=== PATIENT | female | born 1955 | race Caucasian/White ===

== ENCOUNTER → 2017-11-13 17:50 | Outpatient (CLI) | payer OTHER, SELFPAY | PROVIDERS: PCP Family Medicine; Visit Provider Family Medicine | DX: R10.13 Epigastric pain (principal) | CPT/HCPCS: 93005 ==

== ENCOUNTER → 2017-11-20 07:49 | Outpatient (CLI) | payer OTHER, SELFPAY ==
--- NOTE | 2017-11-20 08:20 | CT_ITS ---
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 Now,LEFT LOWER QUAD PAIN . HISTORY of hernia repair Hysterectomy. Appendectomy. Hernia repair TECHNIQUE: Helical CT scanning performed the abdomen and pelvis with no oral nor IV contrast utilized. Sagittal coronal reconstructions on CT workstation. COMPARISON :April 27, 2012 CT abdomen pelvis FINDINGS Lung base:There are multiple small lung nodules towards the lung bases. Overall appears stable when compared to 2012 and 2010 exam., Can be followed.: Small 5 mm nodule periphery of the elbow axial image 6, measures just over 5 mm size,. It although more evident than 2012. Appears similar to the 2011 exam. Adequate stable and can be followed. Other other nodules noted below are stable since 2012: ... Stable near 10 mm soft tissue nodule at the periphery LLL . Unchanged since 2012 CT abdomen.. ... Also a stable 4.8 mm nodule at R mL axial image 3. ... Stable Right CP angle elongated 7.8 mm nodule stable since 2012. Additional scattered tiny nodules towards the right lower lobe measuring less than 4 mm also appear stable. Axial image 11, 12 Liver. Mild fatty changes No focal lesions identified on this noncontrast study. Elongated right lobe, over 24 cm length Spleen overall normal size. Stable. Pancreas unremarkable adrenals appear unchanged. The Plump more generous left adrenal is unchanged since prior studies. 2011 and 2010 GI tract. t no bowel dilatation or obstruction. Moderate stool throughout the colon. I would note the patient has a very redundant stool-filled cecum which extends across midline towards the left abdomen. Cecum residing at the left upper abdomen on coronal image 24, axial the 60. Left lower quadrant appears stable but specifically left inguinal region unchanged mild bulging of fat here but no significant recurrent hernia.. No adnexal mass. Uterus normal size. No free fluid. No free air. There may have been a a previous of ventral,/umbilical hernia region repair with vague mesh graft likely beneath this area suggested. Streak artifact throughout this study due to the patient's large girth, and flanks touching the edge the scanner yielding additional streak artifact.Probable small hiatal hernia noted Bones. Degenerative disc space narrowed L5/S1. Generous facet hypertrophy throughout the lower L-spine Left kidney. 3.6 cm round mass extending from the lower pole left kidney again noted and appears similar in size and character to the 2012 study. Probable debris-filled cyst. Intermediate Density 15 -16HU . Streak artifact for the patient's size may limit its density determination.. Measured higher density on previous [address] exam. It stability is reassuring but might Consider Ultrasound in attempt to further confirm this as benign cystic nature in this large patient. Small just over 4 mm mm nonobstructing calculus upper pole left kidney. Right kidney. Tiny 3 mm nonobstructive calculus lower pole. Minimal scarring lower pole. Previously noted cyst at anterior aspect upper kidney is not really apparent on today's noncontrast study. It certainly has not enlarged IMPRESSION: 1. A few tiny dots of air anterior aspect the bladder. Warrants correlation with urinalysis. If recent catheter placement this could be iatrogenic., However if not could question UTI or other etiology 2. Otherwise No acute findings abdomen or pelvis.. Large patient slightly limits resolution as does lack of IV contrast 3. Incidental note very long redundant right colon and cecum. Stool filled cecum cecum resides at the left mid/upper abdomen as seen on previous.. No change here. Large and s
--- NOTE | 2017-11-20 08:20 | CT_ITS ---
CT sinus wo con CLINICAL INDICATION: ORDERING PHYSICIAN: Yumiko Ventura MD PATIENT AGE: 62 years COMPARISON: None TECHNIQUE:Axial, sagittal, and coronal images are generated and reviewed without contrast FINDINGS: No significant mucosal thickening or sinus air-fluid level. The right frontal sinus is aplastic and left frontal sinus hypoplastic. Minimal mucosal thickening is present within the ethmoid sinuses. The ostiomeatal complexes are patent. There is moderate rightward nasal septal deviation. Unremarkable appearing orbits. Mild left TMJ arthropathy. No mastoid effusion. IMPRESSION: 1. Minimal mucosal thickening ethmoid sinuses otherwise negative study CT sinuses. 2. Minimal left TMJ arthropathy
== END ==
PROVIDERS: PCP Family Medicine; Visit Provider Family Medicine
DX: R51 Headache (principal); R10.32 Left lower quadrant pain
CPT/HCPCS: 70486; 74176

== ENCOUNTER → 2019-01-25 09:47 | Outpatient (CLI) | payer MEDICARE, BC, SELFPAY ==
--- NOTE | 2019-01-25 09:57 | MM_ITS ---
MM Dig screening mamm BI w/CAD CAD Screening COMPARISON: Previous mammogram from outside facility 2009 available for review at this time INDICATION: There is a history of breast cancer patient's sister diagnosed after menopause. There is been previous biopsy left breast for benign disease. TECHNIQUE: Standard CC and MLO images were obtained. R2 CAD reviewed. FINDINGS: The breasts are composed primarily of fat. There are scattered benign-appearing nodular densities in each breast. There are couple mole markers right breast. There are benign-appearing calcifications in each breast. There is no suspicious lesion and there are no suspicious microcalcifications. There are multiple small nodes in both axilla. IMPRESSION: Fatty type breast parenchyma, since are no previous studies for comparison and in view of the long interval since the previous mammograms recommend patient return for 6 month follow-up mammograms to sure stability of the benign-appearing nodular densities in each breast BI-RADS Category: 3 Probably Benign Finding Short Term Follow-up RECOMMENDED FOLLOW-UP: 6M - 6 MONTH FOLLOW-UP (A letter has been sent to the patient regarding results of the study.)
--- NOTE | 2019-01-25 09:58 | XR_ITS ---
XR DEXA axial skeleton HISTORY: ITS.REASON: OSTEOPENIA ORDERING PHYSICIAN: Yumiko Ventura MD PATIENT AGE: 63 years COMPARISON: None FINDINGS: The BMD measured at the Right femoral neck is 1.075 g/cm squared with a T score of 0.3. This is considered Normal according to the World Health Organization criteria. Fracture risk is Low. Treatment is advised. The L1 L4 density has a T score of 1.0 which is normal IMPRESSION: Normal bone density. Low fracture risk. Suggest follow-up exam January 2021
== END ==
PROVIDERS: PCP Family Medicine; Visit Provider Family Medicine
DX: Z12.31 Encounter for screening mammogram for malignant neoplasm of breast (principal); M81.0 Age-related osteoporosis without current pathological fracture
CPT/HCPCS: 77067; 77080

== ENCOUNTER → 2019-05-13 15:07 | Outpatient (CLI) | payer MEDICARE, BC, SELFPAY ==
--- NOTE | 2019-05-13 15:15 | XR_ITS ---
PROCEDURE: XR LUMBAR SPINE MIN 4V CLINICAL INDICATION: ACUTE RT SIDED LBP COMPARISON: No exams were available for comparison FINDINGS: There is mild anterolisthesis of L4 on L5. Mild multilevel degenerative disc disease is present at [id number] L2-L3 L3-L4 and L5-S1. No fracture or dislocation. There are mild facet arthritic changes at L4 and L5. Degenerative changes are also present involving the SI joints. IMPRESSION: Degenerative changes, no acute finding Dictated by: John Gordillo MD 05/13/2019 16:57 Signed by: <Electronically signed by John Gordillo MD in [place]> 05/13/2019 16:57
== END ==
PROVIDERS: PCP Family Medicine; Visit Provider Family Medicine
DX: M54.5 Low back pain (principal)
CPT/HCPCS: 72110

== ENCOUNTER 2019-05-22 16:17 | Inpatient (IN) ==
--- NOTE | 2019-05-22 16:54 | Progress Note ---
Internal Medicine - PN: Subj *Date: 05/22/19 *Time: 16:50 Interval history: Ms Farias was seen in the office of A by DR. Ventura for a FU visit for back pain. With her exam she was found to be in Atrial fibrillation with rapid Vent response at 140. She was thus admitted to [facility] step down for further evaluation and TX. See [facility] H&P/Dr. Ventura Assessment and Plan (1) Atrial fibrillation Current visit: Yes Status: Acute Category: Medical Code(s): I48.91 - Unspecified atrial fibrillation (2) HTN (hypertension) Current visit: Yes Status: Acute Category: Medical Code(s): I10 - Essential (primary) hypertension (3) Asthma Current visit: Yes Status: Chronic Category: Medical Code(s): J45.909 - Unspecified asthma, uncomplicated (4) Back pain Current visit: Yes Status: Chronic Category: Medical Code(s): M54.9 - Dorsalgia, unspecified - Assessment and plan all Dx Assessment and Plan for all problems:: admitted to step down; see orders
[2019-05-22 19:05] LABS: Basophils # 0.1 K/mm3 (0-0.2); Basophils % 0.8 % (0.1-2.0); Eosinophils # 0.2 K/mm3 (0.0-0.4); Eosinophils % 1.6 % (0.1-12.0); Hematocrit 46.9 % (37.0-47.0); Hemoglobin 15.1 g/dL (12.2-16.2); Lymphocytes # 3.6 K/mm3 (0.7-4.5); Lymphocytes % 31.2 % (10-50); Mean Corpuscular HGB Conc 32.3 g/dL (31.8-35.4); Monocytes # 0.6 K/mm3 (0.1-1.0); Monocytes % 5.6 % (1.7-9.3); Neutrophils % 60.8 % (37.0-80.0); Platelet Count 408 K/mm3 (142-424); Red Blood Count 5.27 M/mm3 (4.20-5.40); Red Cell Distribution Width 14.6 % (11.5-17.5); White Blood Count 11.5 K/mm3 (4.8-10.8)
[2019-05-22 19:16] LABS: Albumin Level 3.5 gm/dL (3.4-5.0); Albumin/Globulin Ratio 0.9 (1.1-1.8); Anion Gap 10.6 mEq/L (5-15); Bilirubin,Total 0.4 mg/dL (0.2-1.0); Calcium 9.6 mg/dL (8.5-10.1); Globulin 3.7 gm/dl (1.3-3.2); Total Protein,Serum 7.2 gm/dL (6.4-8.2)
[2019-05-22 19:22] LABS: INR 0.94 (0.9-1.1); Prothrombin Time 9.8 seconds (9.4-11.8)
[2019-05-22 19:24] LABS: Thyroid Stimulating Hormone 2.84 uIU/ml (0.358-3.740)
[2019-05-23 06:31] LABS: Basophils # 0.1 K/mm3 (0-0.2); Basophils % 0.6 % (0.1-2.0); Eosinophils # 0.2 K/mm3 (0.0-0.4); Eosinophils % 1.9 % (0.1-12.0); Hematocrit 44.5 % (37.0-47.0); Hemoglobin 14.2 g/dL (12.2-16.2); Lymphocytes # 3.7 K/mm3 (0.7-4.5); Lymphocytes % 33.8 % (10-50); Mean Corpuscular HGB Conc 31.9 g/dL (31.8-35.4); Mean Corpuscular Volume 88.6 fl (81-99); Mean Platelet Volume 6.9 fl (7.4-10.4); Monocytes # 0.8 K/mm3 (0.1-1.0); Monocytes % 7.1 % (1.7-9.3); Neutrophils # 6.2 K/mm3 (1.8-7.8); Neutrophils % 56.7 % (37.0-80.0); Platelet Count 381 K/mm3 (142-424); Red Blood Count 5.02 M/mm3 (4.20-5.40); Red Cell Distribution Width 14.7 % (11.5-17.5); White Blood Count 10.9 K/mm3 (4.8-10.8)
[2019-05-23 06:44] LABS: Chol/HDL Ratio 3.8 (1-3.5)
[2019-05-23 06:55] LABS: Anion Gap 12.3 mEq/L (5-15); Blood Urea Nitrogen 12 mg/dL (7-18); Calcium 9.3 mg/dL (8.5-10.1); Carbon Dioxide 28 mmol/L (21.0-32.0); Chloride 105 mmol/L (98-107); Creatine Kinase 28 U/L (26-192); Glucose 122 mg/dL (74-106); Sodium 142 mmol/L (136-145)
--- NOTE | 2019-05-23 07:39 | Pharmacy Consult Notes ---
[facility] VTE Monitoring - Patient Demographics Admission date: 05/22/19 Report Date: 05/23/19 Time: 07:39 Allergies/Adverse Reactions: Patient Allergies No Known Drug Allergies Allergy (Verified 05/22/19 19:12) Height: 1.68 m Weight: 140.67 kg Patient Problems: Current Active Problems Atrial fibrillation (Acute) HTN (hypertension) (Acute) Asthma (Chronic) Back pain (Chronic) - VTE Risk Labs: VTE Related Lab Results Hgb 14.2 g/dL (12.2-16.2) 05/23/19 06:05 Hct 44.5 % (37.0-47.0) 05/23/19 06:05 Plt Count 381 K/mm3 (142-424) 05/23/19 06:05 PT 9.8 seconds (9.4-11.8) 05/22/19 18:30 INR 0.94 (0.9-1.1) 05/22/19 18:30 BUN 12 mg/dL (7-18) 05/23/19 06:05 Creatinine 0.67 mg/dL (0.55-1.02) 05/23/19 06:05 Estimated Creat Clear 53 mL/min (50-200) 05/23/19 06:05 Was VTE Risk Assessment Performed: No VTE Score: 2 VTE Risk Level: Very Low Risk - Prophylaxis VTE Prophylaxis Ordered?: Yes Types of VTE Prophylaxis: Pharmacological Pharmacologic Type: Enoxaparin - VTE Diagnosis Confirmed Treatment or plan recommended: Continue Current Treatment
--- NOTE | 2019-05-23 08:08 | Progress Note ---
Internal Medicine - PN: Subj *Date: 05/23/19 *Time: 08:05 Interval history: Patient states she is feeling a little bit better this morning. She has felt her heart flutter a few times during the night and did not rest well. She did eat some breakfast this morning. She denies any chest pain and her heart rate is down in the 80s. Exam Vital signs and Labs for Last 24 Hours: Temp Pulse Resp BP Pulse Ox 98.0 F 90 19 138/90 93 L 05/23/19 04:00 05/23/19 07:00 05/23/19 07:00 05/23/19 07:00 05/23/19 07:00 Laboratory Results - last 24 hr 05/22/19 18:30: WBC 11.5 H, RBC 5.27, Hgb 15.1, Hct 46.9, MCV 89.0, MCH 28.7, MCHC 32.3, RDW 14.6, Plt Count 408, MPV 7.0 L, Neut % (Auto) 60.8, Lymph % (Auto) 31.2, [place] % (Auto) 5.6, Eos % (Auto) 1.6, Baso % (Auto) 0.8, Neut # (Auto) 7.0, Lymph # (Auto) 3.6, [place] # (Auto) 0.6, Eos # (Auto) 0.2, Baso # (Auto) 0.1 05/22/19 18:30: PT 9.8, INR 0.94 05/22/19 18:30: Sodium 143, Potassium 3.6, Chloride 105, Carbon Dioxide 31, Anion Gap 10.6, BUN 14, Creatinine 0.69, Estimated Creat Clear 53, Estimated GFR 85, Est GFR ( Amer) 103, Glucose 121 H, Calcium 9.6, Magnesium 1.9, Total Bilirubin 0.4, AST 10 L, ALT 18, Alkaline Phosphatase 111, Total Protein 7.2, Albumin 3.5, Globulin 3.7 H, Albumin/Globulin Ratio 0.9 L 05/22/19 18:30: Troponin I < 0.02, TSH 2.84 05/22/19 18:30: D-Dimer 105 05/23/19 06:05: Triglycerides 179, Cholesterol 165, LDL Cholesterol 86, VLDL Cholesterol 36, HDL Cholesterol 43, Cholesterol/HDL Ratio 3.8 H 05/23/19 06:05: WBC 10.9 H, RBC 5.02, Hgb 14.2, Hct 44.5, MCV 88.6, MCH 28.2, MCHC 31.9, RDW 14.7, Plt Count 381, MPV 6.9 L, Neut % (Auto) 56.7, Lymph % (Auto) 33.8, [place] % (Auto) 7.1, Eos % (Auto) 1.9, Baso % (Auto) 0.6, Neut # (Auto) 6.2, Lymph # (Auto) 3.7, [place] # (Auto) 0.8, Eos # (Auto) 0.2, Baso # (Auto) 0.1 05/23/19 06:05: Sodium 142, Potassium 3.3 L, Chloride 105, Carbon Dioxide 28, Anion Gap 12.3, BUN 12, Creatinine 0.67, Estimated Creat Clear 53, Estimated GFR 88, Est GFR ( Amer) 107, Glucose 122 H, Calcium 9.3, Total Creatine Kinase 28, CK-MB (CK-2) 0.8, CK-MB (CK-2) Rel Index 2.9, Troponin I < 0.02 I & O for Last 24 hours: Intake & Output 05/20/19 05/21/19 05/22/19 05/23/19 11:59 11:59 11:59 11:59 Intake Total 680 / 680 Output Total 1500 / 1500 Balance -820 / -820 Weight 310 lb 2 oz - Constitutional no acute distress - *Routine Respiratory Exam Present: CTA bilaterally - *Routine Cardiovascular Exam Present: irregularly irregular (HR's in the 80's) - *Routine Abdominal Exam Present: soft, normoactive bowel sounds. Absent: tenderness - *Routine Extremities Exam Present: edema (trace). Absent: cyanosis, clubbing - *Routine Skin Exam Present: warm. Absent: rash - *Routine Neurological Exam Present: alert, oriented X3 Assessment and Plan (1) Atrial fibrillation Current visit: Yes Status: Acute Category: Medical Code(s): I48.91 - Unspecified atrial fibrillation (2) HTN (hypertension) Current visit: Yes Status: Acute Category: Medical Code(s): I10 - Essential (primary) hypertension (3) Asthma Current visit: Yes Status: Chronic Category: Medical Code(s): J45.909 - Unspecified asthma, uncomplicated (4) Back pain Current visit: Yes Status: Chronic Category: Medical Code(s): M54.9 - Dorsalgia, unspecified (5) Hypokalemia Current visit: Yes Status: Acute Category: Medical Code(s): E87.6 - Hypokalemia - Assessment and plan all Dx Assessment and Plan for all problems:: Cardiology to see patient today. Her heart rate has decreased. Will add potassium supplementation today.
--- NOTE | 2019-05-23 10:38 | Consult Report ---
History of Present Illness Consult date: 05/23/19 Consult reason: atrial fibrillation, shortness of breath Chief complaint: Atrial fibrillation and racing of the heart Additional Medical History:: 1. Hypertension 2. Hyperlipidemia History of present illness: This is a 63-year-old white female who was admitted to the hospital from her primary care provider's office for being in atrial fibrillation with RVR. The patient has been being treated for acute low back pain. The patient was started on Celebrex and given a steroid injection. She went to Dr. Ventura's office for follow-up on this and she was found to have an irregularly irregular heartbeat and she was tachycardic. The patient was then sent to the hospital for admission for atrial fibrillation with RVR. When the patient got to the hospital she was found to be in new onset atrial fibrillation with a heart rate of 127. Her heart rate was around [address] Ventura's office. She denies any chest pain or pressure. She states that she had been feeling some racing of the heart but she thought this was maybe just a side effect of the new medications or her back pain. The patient states that she has some shortness of breath at times because she is overweight but no real significant shortness of breath. She does have edema in her lower extremities at times. She denies any fevers, chills, nausea, vomiting, diarrhea, PND or orthopnea. The patient was started on a diltiazem drip and she is now rate controlled. She states that she is intermittently feeling some racing of the heart here and there but this has improved. She still denying any chest pain or pressure. She reports having one episode of chest pain in the recent past. She states that this was a quick short sensation and resolved and has never occurred again. [facility] History I have reviewed the patient's past medical history: Yes Medical History: Reports:: Hyperlipidemia, Hypertension Denies:: Diabetes Mellitus Type 2 *Have you ever received a pneumonia vaccine?: Yes *Have you received a flu vaccine this season?: Yes Laterality Cases: Bilateral: Tonsillectomy Other Surgeries: Yes: Cholecystectomy, Hernia Repair, Skin Cancer Excision - *Social History Smoking Status: Never smoker Alcohol Intake: never *Occupational Status:: retired *Travel in the last 8 weeks: None Family Hx:: Cancer, Diabetes, Heart Attack, Hyperlipidemia, Hypertension, Thyroid Disorder Meds Home Medications Medication Instructions Recorded Confirmed Type Amlodipine Besylate 10 mg PO HS 05/22/19 05/23/19 History Aspirin [Adult Aspirin Regimen] 81 mg PO DAILY 05/22/19 05/22/19 History Atorvastatin Calcium [Atorvastatin 20 mg PO HS 05/22/19 05/22/19 History 20mg Tab] Celecoxib [Celebrex 200mg cap] 200 mg PO DAILY 05/22/19 05/22/19 History Cyclobenzaprine HCl [Flexeril 10mg 10 mg PO TIDP PRN 05/22/19 05/23/19 History tablet] Sennosides [Senna] 4 tab PO BID 05/22/19 05/22/19 History hydroCHLOROthiazide [HCTZ 25mg 25 mg PO DAILY 05/22/19 05/22/19 History tab] Allergies Allergy/AdvReac Type Severity Reaction Status Date / Time No Known Drug Allergies Allergy Verified 05/22/19 19:12 Review of Systems - Review of Systems Review of systems:: pertinent systems reviewed and negative unless documented below - Constitutional Reports lack of energy - *Cardiovascular Reports shortness of breath with activity, Reports fast heart rate - *Respiratory Reports shortness of breath with activity - *Musculoskeletal Reports back pain Exam Vital signs and Labs for Last 24 Hours: Temp Pulse Resp BP Pulse Ox 98.3 F 87 20 147/90 H 95 05/23/19 08:00 05/23/19 09:00 05/23/19 09:00 05/23/19 09:00 05/23/19 09:00 Laboratory Results - last 24 hr 05/22/19 18:30: WBC 11.5 H, RBC 5.27, Hgb 15.1, Hct 46.9, MCV 89.0, MCH 28.7, MCHC 32.3, RDW 14.6, Plt Count 408, MPV 7.0 L, Neut % (Auto) 60.8, Lymph % (Auto) 31.2, [place] % (Auto) 5.6, Eos % (Auto) 1.6, Baso % (Auto) 0.8, Neut # (Auto) 7.0, Lymph # (Auto) 3.6, [place] # (Auto) 0.6, Eos # (Auto) 0.2, Baso # (Auto) 0.1 05/22/19 18:30: PT 9.8, INR 0.94 05/22/19 18:30: Sodium 143, Potassium 3.6, Chloride 105, Carbon Dioxide 31, Anion Gap 10.6, BUN 14, Creatinine 0.69, Estimated Creat Clear 53, Estimated GFR 85, Est GFR ( Amer) 103, Glucose 121 H, Calcium 9.6, Magnesium 1.9, Total Bilirubin 0.4, AST 10 L, ALT 18, Alkaline Phosphatase 111, Total Protein 7.2, Albumin 3.5, Globulin 3.7 H, Albumin/Globulin Ratio 0.9 L 05/22/19 18:30: Troponin I < 0.02, TSH 2.84 05/22/19 18:30: D-Dimer 105 05/23/19 06:05: Triglycerides 179, Cholesterol 165, LDL Cholesterol 86, VLDL Cholesterol 36, HDL Cholesterol 43, Cholesterol/HDL Ratio 3.8 H 05/23/19 06:05: WBC 10.9 H, RBC 5.02, Hgb 14.2, Hct 44.5, MCV 88.6, MCH 28.2, MCHC 31.9, RDW 14.7, Plt Count 381, MPV 6.9 L, Neut % (Auto) 56.7, Lymph % (Auto) 33.8, [place] % (Auto) 7.1, Eos % (Auto) 1.9, Baso % (Auto) 0.6, Neut # (Auto) 6.2, Lymph # (Auto) 3.7, [place] # (Auto) 0.8, Eos # (Auto) 0.2, Baso # (Auto) 0.1 05/23/19 06:05: Sodium 142, Potassium 3.3 L, Chloride 105, Carbon Dioxide 28, Anion Gap 12.3, BUN 12, Creatinine 0.67, Estimated Creat Clear 53, Estimated GFR 88, Est GFR ( Amer) 107, Glucose 122 H, Calcium 9.3, Total Creatine Kinase 28, CK-MB (CK-2) 0.8, CK-MB (CK-2) Rel Index 2.9, Troponin I < 0.02 I & O for Last 24 hours: Intake & Output 05/20/19 05/21/19 05/22/19 05/23/19 23:59 23:59 23:59 23:59 Intake Total 240 / 240 440 / 440 Output Total 1500 / 1500 Balance 240 / -110 -1060 / -1060 Weight 305 lb 310 lb 2 oz Narrative: EKG #1 is atrial fibrillation with a rate of 127. There is old inferior TN pattern and old anterior lateral TN pattern. EKG #2 shows atrial fibrillation with a rate of 88. There is old inferior TN pattern and old anterior lateral TN pattern. - Constitutional no acute distress, morbidly obese - *Routine HEENT Exam Head: Present: normocephalic, atraumatic Eye: Present: EOMI, PERRL ENT: Present: mucous membranes moist - *Routine Neck Exam Present: supple, full ROM, normal carotid upstroke. Absent: JVD, carotid bruit, lymphadenopathy - *Routine Respiratory Exam Present: CTA bilaterally - *Routine Cardiovascular Exam Present: Normal S1, Normal S2, irregularly irregular. Absent: murmur - *Routine Abdominal Exam Present: soft, normoactive bowel sounds. Absent: tenderness, distended - *Routine Extremities Exam Present: full ROM, pulses intact, normal capillary refill. Absent: cyanosis, clubbing, edema - *Routine Skin Exam Present: intact, warm. Absent: erythema, rash - *Routine Neurological Exam Present: alert, oriented X3, CN II-XII intact. Absent: sensory deficit, motor deficit - Routine Psychiatric Exam Present: normal affect, normal thought process - Detailed Eye Exam Eyelids: Left normal inspection Assessment and Plan (1) Atrial fibrillation Current visit: Yes Status: Acute Category: Medical Code(s): I48.91 - Unspecified atrial fibrillation (2) HTN (hypertension) Current visit: Yes Status: Acute Category: Medical Code(s): I10 - Essential (primary) hypertension (3) Asthma Current visit: Yes Status: Chronic Category: Medical Code(s): J45.909 - Unspecified asthma, uncomplicated (4) Back pain Current visit: Yes Status: Chronic Category: Medical Code(s): M54.9 - Dorsalgia, unspecified (5) Hypokalemia Current visit: Yes Status: Acute Category: Medical Code(s): E87.6 - Hypokalemia (6) Morbid obesity Current visit: Yes Status: Chronic Category: Medical Code(s): E66.01 - Morbid (severe) obesity due to excess calories (7) Hyperlipidemia Current visit: Yes Status: Chronic Category: Medical Code(s): E78.5 - Hyperlipidemia, unspecified (8) Abnormal EKG Current visit: Yes Status: Acute Category: Medical Code(s): R94.31 - Abnormal electrocardiogram [ECG] [EKG] - Assessment and plan all Dx Assessment and Plan for all problems:: Plan: 1. The patient was admitted to the hospital with atrial fibrillation with RVR from Dr. Ventura's office. When the patient got to the emergency department she was found to be in atrial fibrillation with a rate of 127. The patient has been started on a diltiazem drip. She has tolerated this well and she is now rate controlled. Will convert her over to oral diltiazem CD 240 mg daily for rate control of her atrial fibrillation. 2. The patient will need to be on long-term anticoagulation secondary to her atrial fibrillation. We will get the patient started on Xarelto 20 mg p.o. daily with supper for anticoagulation. I have had a long discussion with the patient and her about oral anticoagulation. They have verbalized understanding. 3. The patient's blood pressure is elevated this morning. Her hydrochlorothiazide and her irbesartan have been restarted today for better blood pressure control. 4. Her LDL goal is less than 100. L is 86. 5. The patient is morbidly obese. Weight loss is highly encouraged. 6. We will get an echocardiogram to evaluate her LV function. 7. The patient has ruled out for an TN. She denies any chest pain or chest pressure. No plans for invasive cardiac testing while she is hospitalized. 8. The patient does have an abnormal EKG and her father had an TN at the age of 58. She would benefit from an ischemic evaluation on an outpatient basis. When she is discharged from the hospital and has followed up in our outpatient clinic, the patient will need to be set up for Lexiscan Myoview stress test. However this does not need to be completed while she is in the hospital. 9. As mentioned before we will convert her diltiazem over to oral medication today and start her on oral anticoagulation with Xarelto. We will stop her Lovenox. 10. Further recommendations were made pending the patient's response to treatment. Thank you for the opportunity to help participate in the care of this patient.
--- NOTE | 2019-05-23 14:59 | Electrocardiograph Report ---
APPROVED REPORT Exam: Resting ECG HR:88 bpm ECG Measurements Heart Rate 88 AXES QRSd 100 QRS -54 QT 378 T24 QTc 457 <Conclusion> Atrial fibrillation Left axis deviation Inferior infarct, age undetermined Late r wave progression Abnormal ECG Electronically signed by : Good Nagy, 05/23/2019 14:59:25
--- NOTE | 2019-05-23 18:12 | Electrocardiograph Report ---
APPROVED REPORT Exam: Resting ECG HR:127 bpm ECG Measurements Heart Rate 127 AXES QRSd 104 QRS -55 QT 294 T60 QTc 427 <Conclusion> Atrial fibrillation with rapid ventricular response Left axis deviation Minimal voltage criteria for LVH, may be normal variant LAHB Poor R Wave Progression Abnormal ECG Electronically signed by : Thomas Wharton, 05/23/2019 18:12:10
--- NOTE | 2019-05-24 09:05 | Progress Note ---
Internal Medicine - PN: Subj *Date: 05/24/19 *Time: 09:02 Interval history: She is stable for discharge to today though she remains in controlled atrial fibrillation. She will go home on diltiazem 240 mg sustained release, Xarelto 20 mg daily also. See med list for complete medications. She will be soon seen in follow-up by Dr. Ventura as well as cardiology. Exam Vital signs and Labs for Last 24 Hours: Temp Pulse Resp BP Pulse Ox 97.7 F 97 H 19 133/77 96 05/24/19 08:00 05/24/19 08:00 05/24/19 08:00 05/24/19 08:00 05/24/19 08:00 I & O for Last 24 hours: Intake & Output 05/21/19 05/22/19 05/23/19 05/24/19 11:59 11:59 11:59 11:59 Intake Total 680 / 680 720 / 720 Output Total 2300 / 2300 2600 / 2600 Balance -1620 / -1620 -1880 / -1880 Weight 310 lb 2 oz 308 lb 1 oz - *Routine Respiratory Exam Present: CTA bilaterally - *Routine Cardiovascular Exam Present: irregular rhythm (80) - *Routine Abdominal Exam Present: soft (Obese) - *Routine Extremities Exam Present: edema (Trace) - Routine Back/Spine/Pelvis Exam Back/Spine: Absent: paraspinal tenderness - *Routine Neurological Exam Present: alert, oriented X3 Assessment and Plan (1) Atrial fibrillation Current visit: Yes Status: Acute Category: Medical Code(s): I48.91 - Unspecified atrial fibrillation (2) HTN (hypertension) Current visit: Yes Status: Acute Category: Medical Code(s): I10 - Essential (primary) hypertension (3) Asthma Current visit: Yes Status: Chronic Category: Medical Code(s): J45.909 - Unspecified asthma, uncomplicated (4) Back pain Current visit: Yes Status: Chronic Category: Medical Code(s): M54.9 - Dorsalgia, unspecified (5) Hypokalemia Current visit: Yes Status: Acute Category: Medical Code(s): E87.6 - Hypokalemia (6) Morbid obesity Current visit: Yes Status: Chronic Category: Medical Code(s): E66.01 - Morbid (severe) obesity due to excess calories (7) Hyperlipidemia Current visit: Yes Status: Chronic Category: Medical Code(s): E78.5 - Hyperlipidemia, unspecified (8) Abnormal EKG Current visit: Yes Status: Acute Category: Medical Code(s): R94.31 - Abnormal electrocardiogram [ECG] [EKG] - Assessment and plan all Dx Assessment and Plan for all problems:: Discharge with follow-up in [facility] and with cardiology.
[2019-05-24 09:18] LABS: Basophils # 0.1 K/mm3 (0-0.2); Basophils % 0.8 % (0.1-2.0); Eosinophils # 0.2 K/mm3 (0.0-0.4); Eosinophils % 2.4 % (0.1-12.0); Hematocrit 45.6 % (37.0-47.0); Hemoglobin 14.4 g/dL (12.2-16.2); Lymphocytes # 2.1 K/mm3 (0.7-4.5); Lymphocytes % 29.2 % (10-50); Mean Corpuscular HGB Conc 31.6 g/dL (31.8-35.4); Mean Corpuscular Volume 90.3 fl (81-99); Mean Platelet Volume 6.8 fl (7.4-10.4); Monocytes # 0.5 K/mm3 (0.1-1.0); Monocytes % 6.4 % (1.7-9.3); Neutrophils # 4.4 K/mm3 (1.8-7.8); Neutrophils % 61.2 % (37.0-80.0); Platelet Count 370 K/mm3 (142-424); Red Blood Count 5.06 M/mm3 (4.20-5.40); Red Cell Distribution Width 14.6 % (11.5-17.5); White Blood Count 7.2 K/mm3 (4.8-10.8)
[2019-05-24 09:25] LABS: Anion Gap 8.4 mEq/L (5-15); Calcium 9.3 mg/dL (8.5-10.1)
--- NOTE | 2019-05-24 10:53 | Progress Note ---
Subjective Date: 05/24/19 Time: 08:00 Principal diagnosis: Atrial Fibrillation Interval history: 63-year-old female admitted to [facility] on 05/23/2019 for atrial fibrillation with RVR. Patient was started on Xarelto for anti- coagulation and Diltiazem for heart rate control. Preliminary echocardiogram performed reveals EF within normal limits and mild MR and TR. Awaiting on official echocardiogram reading. Upon assessment this a.m, patient resting in bed. Denies chest pain, tightness or pressure. Denies shortness of breath. Denies palpitations or dizziness. monitor tech reveals atrial fibrillation at a controlled rate. Heart rate noted in the 80s. Slight swelling noted of the lower extremities. Patient denies any bleeding issues or concerns due to taking the Xarelto. Lung sounds are clear. Vital signs are stable. Recommend patient to have further cardiac testing on an outpatient basis. Due to significant family history, would recommend Lexiscan Myoview to evaluate ischemia, on outpatient basis. Recommend patient to follow-up in 1 to 2 weeks. Discussed with patient the importance of long-term anticoagulation. Encouraged patient to notify cardiac clinic if she develops any bleeding concerns or issues. Encouraged weight loss. Thank you for letting cardiology participate in the care of this patient. Plan of care with discussed with Dr. Kline. Exam Vital signs and Labs for Last 24 Hours: Temp Pulse Resp BP Pulse Ox 97.7 F 89 19 133/77 96 05/24/19 08:00 05/24/19 08:57 05/24/19 08:57 05/24/19 08:00 05/24/19 08:57 Laboratory Results - last 24 hr 05/24/19 09:03: WBC 7.2 D, RBC 5.06, Hgb 14.4, Hct 45.6, MCV 90.3, MCH 28.6, MCHC 31.6 L, RDW 14.6, Plt Count 370, MPV 6.8 L, Neut % (Auto) 61.2, Lymph % (Auto) 29.2, [place] % (Auto) 6.4, Eos % (Auto) 2.4, Baso % (Auto) 0.8, Neut # (Auto) 4.4, Lymph # (Auto) 2.1, [place] # (Auto) 0.5, Eos # (Auto) 0.2, Baso # (Aut o) 0.1 05/24/19 09:03: Sodium 140, Potassium 3.4 L, Chloride 105, Carbon Dioxide 30, Anion Gap 8.4, BUN 14, Creatinine 0.76, Estimated Creat Clear 53, Estimated GFR 76, Est GFR ( Amer) 92, Glucose 125 H, Calcium 9.3 I & O for Last 24 hours: Intake & Output 05/21/19 05/22/19 05/23/19 05/24/19 23:59 23:59 23:59 23:59 Intake Total 240 / 240 440 / 440 720 / 720 Output Total 3200 / 3200 1700 / 1700 Balance 240 / -110 -2760 / -2760 -980 / -980 Weight 305 lb 310 lb 2 oz 308 lb 1 oz - Constitutional no acute distress, morbidly obese, cooperative - *Routine HEENT Exam Head: Present: normocephalic ENT: Present: mucous membranes moist - *Routine Neck Exam Present: supple, normal carotid upstroke. Absent: JVD, carotid bruit - Routine Chest/Breast/Axilla Exam Chest wall: Present: tenderness. Absent: mass, pacemaker - *Routine Respiratory Exam Present: CTA bilaterally. Absent: rales, respiratory distress, rhonchi, stridor, wheezes, crackles - *Routine Cardiovascular Exam Present: RRR, Normal S2, irregular rhythm. Absent: murmur, rubs, click, bradycardia, tachycardia, JVD - *Routine Abdominal Exam Present: soft, normoactive bowel sounds. Absent: tenderness, guarding, firm, bruit - *Routine Extremities Exam Present: edema, full ROM, pulses intact, normal capillary refill. Absent: cyanosis, clubbing, calf tenderness - *Routine Skin Exam Present: intact, dry, warm - *Routine Neurological Exam Present: alert, oriented X3, CN II-XII intact, moving all extremities, normal speech - Routine Psychiatric Exam Present: normal affect, normal thought process, cooperative. Absent: suicidal ideation, homicidal ideation Progress Note: A&P (1) Atrial fibrillation Status: Acute (2) HTN (hypertension) Status: Acute (3) Asthma Status: Chronic (4) Back pain Status: Chronic (5) Hypokalemia Status: Acute (6) Morbid obesity Status: Chronic (7) Hyperlipidemia Status: Chronic (8) Abnormal EKG Status: Acute Assessment and Plan for All Diagnoses:: Plan: 1. Continue current medications. 2. Recommend further cardiac testing as an outpatient basis. Lexiscan myoview due to significant family history and new onset of Atrial fibrillation. 3. Encourage weight loss. 4. LDL goal<55. 5. Discussed with patient the importance of Xarelto. Instructed patient to notify cardiac clinic of any bleeding concerns or issues. 6. Recommend patient to follow-up in cardiac clinic in 1 to 2 weeks.
--- NOTE | 2019-05-24 16:56 | Cardiology Report ---
APPROVED REPORT EXAM: Comprehensive 2D, Doppler, and color-flow Echocardiogram Television Maintenance Man: Rossana Nye RDCS Ht: 5 ft 6 in Wt: 310lbs BSA: 2.41 BP: 110/70 mmHg Indications: Dyspnea, Hypertension/HDD 2D Dimensions IVSd 1.10 cm F: 0.6-1.0LVEF (Visual) 43.00 % PWd 1.20 cm F: 0.6 - 1.0 LVDd 4.30 cm F: 3.9 - 5.3 LVDs 3.40 cm F: 2.2 - 3.5 LVOT 1.90 cm (M/F) 1.5-2.5 M-Mode Dimensions LA Diam 3.60 cm (1.9-4.0)Ao Diam 3.60 cm (2.0-3.7) AV Cusp 2.10 cm (1.5-2.6) LV Diastology LAT E' 10.10 (<10 cm/sec) Left Ventricle Left atrium is mildly enlarged, left ventricle is normal size, mild concentric left ventricular hypertrophy, visually estimated ejection fraction of 55% with no regional wall motion abnormality, endocardial surfaces are poorly visualized. Diastolic parameters are inconclusive Right Ventricle Right atrium and right ventricle mildly enlarged with normal contractility. Aortic Valve Aortic valve is minimally thickened and calcified there is no aortic stenosis aortic insufficiency. Mitral Valve Mitral valve is grossly normal, there is mild mitral regurgitation. Tricuspid Valve Tricuspid valve is grossly normal, there is mild tricuspid regurgitation. Tricuspid regurgitation jet velocity is inadequate for calculation of the right ventricular systolic pressure. Pulmonic Valve Pulmonic valve is poorly visualized. Great Vessels Aortic root is normal size. Pericardium No significant pericardial effusion noted. Conclusion 1. Technically difficult study because of the patient factors and poor acoustic windows. 2. Biatrial enlargement, normal left ventricular size, mild concentric left ventricular hypertrophy, visually estimated ejection fraction 55% with no regional wall motion abnormality. Diastolic parameters are inconclusive. 3. Mildly enlarged right ventricle with normal contractility. 4. Mild mitral and tricuspid regurgitation 5. No significant pericardial effusion noted. Electronically signed by : Terry Salazar, 05/24/2019 16:56:09
--- NOTE | 2019-05-25 08:45 | Discharge Summary ---
General - General Admission date:: 05/22/19 Discharge date: 05/24/19 HPI HPI: Ms Farias is a 63yo female who was seen in the office of A by Dr. Ventura for a FU visit for back pain. With her exam, she was found to be in Atrial fibrillation with rapid Vent response at 140 bmp. She was sent to the emergency room for a workup and was then she was then admitted to [facility] step down for further evaluation and [place]. Cardiology was consulted. Hospital Course Hospital Course: The patient had a chest x-ray showing cardiomegaly with mild tortuosity/ectasia of the thoracic aorta. When she got to the hospital, her heart rate was 127. She was started on a diltiazem drip and her rate was controlled. She still felt some racing of the heart intermittently, but it had improved. Cardiology saw the patient and switched her to oral Cardizem CD 240 mg daily for rate control. They felt she would need long-term anticoagulation, therefore they started her on Xarelto 20 mg daily. An echocardiogram was ordered. It showed an EF of 55% with biatrial enlargement and mild concentric left ventricular hypertrophy. Her heart rate remained controlled on oral Cardizem. She was stable to be discharged home on both Cardizem and Xarelto. Cardiology would like to see the patient in 1 to 2 weeks in their clinic and she will also follow-up in the office of [facility]. Objective Vital signs: Temp Pulse Resp BP Pulse Ox 97.7 F 89 19 133/77 96 05/24/19 08:00 05/24/19 08:57 05/24/19 08:57 05/24/19 08:00 05/24/19 08:57 Narrative: - Constitutional no acute distress - *Routine Respiratory Exam Present: CTA bilaterally - *Routine Cardiovascular Exam Present: irregularly irregular (HR's in the 80's) - *Routine Abdominal Exam Present: soft, normoactive bowel sounds. Absent: tenderness - *Routine Extremities Exam Present: edema (trace). Absent: cyanosis, clubbing - *Routine Skin Exam Present: warm. Absent: rash - *Routine Neurological Exam Present: alert, oriented X3 Results Labs on day of discharge: Labs from last 24 hours 05/24/19 05/24/19 09:03 09:03 WBC 7.2 D RBC 5.06 Hgb 14.4 Hct 45.6 MCV 90.3 MCH 28.6 MCHC 31.6 L RDW 14.6 Plt Count 370 MPV 6.8 L Neut % (Auto) 61.2 Lymph % (Auto) 29.2 [place] % (Auto) 6.4 Eos % (Auto) 2.4 Baso % (Auto) 0.8 Neut # (Auto) 4.4 Lymph # (Auto) 2.1 [place] # (Auto) 0.5 Eos # (Auto) 0.2 Baso # (Auto) 0.1 Sodium 140 Potassium 3.4 L Chloride 105 Carbon Dioxide 30 Anion Gap 8.4 BUN 14 Creatinine 0.76 Estimated Creat Clear 53 Estimated GFR 76 Est GFR ( Amer) 92 Glucose 125 H Calcium 9.3 DS: Diagnosis - Discharge Diagnosis (1) Atrial fibrillation Status: Acute (2) HTN (hypertension) Status: Acute (3) Asthma Status: Chronic (4) Back pain Status: Chronic (5) Hypokalemia Status: Acute (6) Morbid obesity Status: Chronic (7) Hyperlipidemia Status: Chronic (8) Abnormal EKG Status: Acute Discharge Plan - Patient Discharge Instructions ACTIVITY: Continue current activity DIET: low fat, low cholesterol Patient Instructions: Atrial Fibrillation, Heart-Healthy Diet, DI for Low Back Pain, DI for Atrial Fibrillation, DI for Weight Loss - Follow up Plan Follow up with: Yumiko Ventura MD [Primary Care Provider] - 05/29/19 2:45 pm () Logan Kline MD [Staff Physician] - 05/31/19 9:30 am Unknown provider or service follow up:: 05/24/19 09:02 She needs an appointment with cardiology for follow-up. Disposition: Home, Self-Jail Medications: Home Medications Medication Instructions Recorded Confirmed Type Aspirin [Adult Aspirin Regimen] 81 mg PO DAILY 05/22/19 05/22/19 History Atorvastatin Calcium [Atorvastatin 20 mg PO HS 05/22/19 05/22/19 History 20mg Tab] Cyclobenzaprine HCl [Flexeril 10mg 10 mg PO TIDP PRN 05/22/19 05/23/19 History tablet] Sennosides [Senna] 4 tab PO BID 05/22/19 05/22/19 History hydroCHLOROthiazide [HCTZ 25mg 25 mg PO DAILY 05/22/19 05/22/19 History tab] Irbesartan [Avapro 300mg 300 mg PO DAILY #30 tab 05/24/19 Rx tablet] Rivaroxaban [Xarelto 20mg Tablet] 20 mg PO DAILY #30 tab 05/24/19 Rx dilTIAZem HCl [Cardizem ER 240mg 240 mg PO DAILY #30 cap.er.24h 05/24/19 Rx Capsule] Prescriptions/Medication Reconciliation: New Irbesartan [Avapro 300mg tablet] 300 mg PO DAILY #30 tab dilTIAZem HCl [Cardizem ER 240mg Capsule] 240 mg PO DAILY #30 cap.er.24h Rivaroxaban [Xarelto 20mg Tablet] 20 mg PO DAILY #30 tab Continued Aspirin [Adult Aspirin Regimen] 81 mg PO DAILY Sennosides [Senna] 4 tab PO BID Atorvastatin Calcium [Atorvastatin 20mg Tab] 20 mg PO HS hydroCHLOROthiazide [HCTZ 25mg tab] 25 mg PO DAILY Cyclobenzaprine HCl [Flexeril 10mg tablet] 10 mg PO TIDP PRN PRN Reason: muscle spasms Discontinued Amlodipine Besylate 10 mg PO HS Celecoxib [Celebrex 200mg cap] 200 mg PO DAILY - Problem Reconciliation Problems Reviewed?: Yes
== END 2019-05-24 10:00 | disposition home or self-care (01) | DRG 309 ==
LOC: 2ND 16:28
PROVIDERS: ADMIT Family Medicine; ATTEND Family Medicine

== ENCOUNTER → 2019-05-29 16:04 | Outpatient (CLI) | payer MEDICARE, BC, SELFPAY ==
--- NOTE | 2019-05-29 16:16 | ECG_ITS ---
APPROVED REPORT Exam: Resting ECG HR:81 bpm ECG Measurements Heart Rate 81 AXES OK 204 P 30 QRSd 96 QRS -54 QT 378 T 44 QTc 439 <Conclusion> Normal sinus rhythm,First Degree AV Block Left axis deviation,LAHB versus Old Inferior MS Minimal voltage criteria for LVH, Anterolateral infarct,Old-versus changes due to LAHB Abnormal ECG Electronically signed by : Thomas Wharton, 05/29/2019 17:45:03
== END ==
PROVIDERS: PCP Family Medicine; Visit Provider Family Medicine
DX: Z86.79 Personal history of other diseases of the circulatory system (principal)
CPT/HCPCS: 93005

== ENCOUNTER → 2019-06-07 07:13 | Outpatient (CLI) | payer MEDICARE, BC, SELFPAY ==
--- NOTE | 2019-06-07 07:15 | NM_ITS ---
APPROVED REPORT Exam: Nuclear Stress Test Indication: SOB, FATIQUE, HTN, HYPERLIPIDEMIA, FM HX, OBESITY, Patient Location: Outpatient Stress Tech: Dominique Cruz PA Tech:Michelle Villalta SHIKen RT(R)(N) Ht: 5 ft 6 in Wt: 305 lbs BSA: 2.39 m2 HR: 79 bpm BP: 163/85 mmHg BMI: 49.2 History: SOB, FATIQUE, HTN, HYPERLIPIDEMIA, FM HX, OBE Procedure: Patient received a 0.4 mg of intravenous Lexiscan, resting heart rate 79 bpm, resting blood pressure 163/85 mmHg, with Lexiscan maximum heart rate achived was 119 bpm which is 85 % of the maximum predicted heart rate and blood pressure was 148/88 mmHg. With Lexiscan, patient denied any complaint of chest pain. Electrocardiogram Resting electro cardiogram showed sinus rhythm, with Lexiscan there is less than 1.[address] segment depression noted from the baseline EKG. Cardiac Stress and Resting SPECT Images: Cardiac Stress and Resting SPECT images were obtained using technetium 99m Myoview 32.6 mCi stress and 10.17 mCi at rest. Gated SPECT with analysis of segmental wall motion and calculation of the ejection fraction also done. Cardiac stress and resting SPECT images show mild fixed defect in the anterior wall with normal contractility and the gated SPECT is likely secondary to soft tissue attenuation, no reversible ischemia seen. Computer derived ejection fraction is over 65% with no regional wall motion abnormality, right ventricle is normal size and contractility. Conclusion: 1. The EKG portion of the Lexiscan Myoview is nondiagnostic. 2. No scintigraphic evidence of reversible ischemia seen, computer derived ejection fraction over 65% with no regional wall motion abnormality, right ventricle is normal size and contractility. 3. Normal Lexiscan Myoview study. Electronically signed by : Terry Salazar, 06/07/2019 13:40:01
--- NOTE | 2019-06-07 09:19 | CA_ITS ---
APPROVED REPORT Exam: Pharmacologic Technologist: dima concepcion, Ht: 5 ft 6 in Wt: 305 lbs BSA: 2.39 m2 HR: 79 bpm BP: 163/85 mmHg Rhythm: NSR Indications: SOB, Fatigue Medical History Medications: Asa,,,,, Atorvastatin,,,,, HCTZ,,,,, XaRELTO,,,,, CardIZEM,,,,, AVapro,,,,, SeNnosides,,,,, Allergies: No known drug allergies Cardiac Risk Factors: HTN, Hyperlipidemia, FHX of CAD Stress Test Details Test: LEXISCAN HR Resting HR: 82 bpm Max Heart Rate (APMHR): 155 bpm Max HR Achieved: 124 bpm Target HR (85% APMHR): 131 bpm % of APMHR: 80 Recovery HR: 100 bpm BP Resting BP: 163/85 mmHg Max BP: 163/85 mmHg Recovery BP: 135.0/69.0 mmHg ECG Resting ECG: NSR, LAD, can't rule out old anterior [place]. Clinical Stress Symptoms: Headache, Abdominal discomfort Exercise duration: 04:03 min Highest Stage Achieved: Exercise capacity: 1.0 METs Stress ECG Conclusion Symptoms: Nausea, Headache ,No CP. Arrhythmias/Ectopy: None ST-T Changes: No significant changes. - Unremarkable Lexiscan stress. - Myoview images reported separately. Electronically signed by : Terry Salazar, 06/07/2019 13:52:51
== END ==
PROVIDERS: PCP Family Medicine; Visit Provider Internal Medicine Cardiovascular Disease
DX: I48.91 Unspecified atrial fibrillation (principal); R94.31 Abnormal electrocardiogram [ECG] [EKG]; I10 Essential (primary) hypertension
CPT/HCPCS: 78452; 93017; A9502; J2785

== ENCOUNTER → 2019-06-07 10:20 | Outpatient (CLI) | payer SELFPAY ==
--- NOTE | 2019-06-07 10:44 | CT_ITS ---
PROCEDURE: CT HEART W CALCIUM SCORE CLINICAL HISTORY: SCREENING COMPARISON: COUNT INCLUDES THE [facility] CT abdomen pelvis wo con from 11/20/2017 TECHNIQUE: Axial images obtained with sagittal and coronal reformats. All CT scans at the facility use one or more dose reduction, viz: automated exposure control, ma/kV adjustment per patient size (including targeted exams where dose is matched to indication, i.e. head), or iterative reconstruction technique. FINDINGS: Coronary artery calcium score is 360 indicating moderate plaque burden with high cardiovascular disease risk. Incidental note made of small hiatal hernia. There is a 5 mm nodule in the right lower lobe and a 7 mm nodule in the inferior aspect of the right upper lobe. These are noncalcified. There is a 11 mm nodule in the left lower lobe and an additional 6 mm nodule in the left lower lobe medially. Parenchymal scarring is present in the lingula. There is a 5 mm nodule in the left perihilar region within the left upper lobe. IMPRESSION: 1. Moderate plaque burden with high cardiovascular disease risk. 2. Multiple noncalcified pulmonary nodules in the lower lung zones as detailed above measuring up to 11 mm. Recommend dedicated chest CT without and with contrast for further evaluation. Dictated by: John Gordillo MD 06/08/2019 09:16 Electronically signed by John Gordillo MD in [facility] 06/08/2019 09:16
== END ==
PROVIDERS: PCP Family Medicine; Visit Provider Internal Medicine Cardiovascular Disease
DX: R06.02 Shortness of breath (principal); I48.91 Unspecified atrial fibrillation; I10 Essential (primary) hypertension; R94.31 Abnormal electrocardiogram [ECG] [EKG]; R53.83 Other fatigue
CPT/HCPCS: 75571

== ENCOUNTER → 2019-06-13 14:31 | Outpatient (CLI) | payer MEDICARE, BC, SELFPAY | PROVIDERS: PCP Family Medicine; Visit Provider Internal Medicine Cardiovascular Disease | DX: G47.33 Obstructive sleep apnea (adult) (pediatric) (principal); R06.83 Snoring; R06.02 Shortness of breath; I10 Essential (primary) hypertension | CPT/HCPCS: G0399 ==

== ENCOUNTER → 2020-05-08 08:07 | Outpatient (CLI) | payer MEDICARE, BC, SELFPAY ==
--- NOTE | 2020-05-08 08:29 | MM_ITS ---
PROCEDURE: MM DIG SCREENING MAMM BI W/CAD Digital Breast Tomosynthesis Included CLINICAL INDICATION: SCREENING There is a history of breast cancer patient's sister diagnosed in her 50s. There has been a previous biopsy left breast for benign disease. COMPARISON: MG DIG MAMM-SCREEN MAMTA from 01/25/2019 TECHNIQUE: Standard CC and MLO images and 3D Tomosynthesis was obtained. R2 CAD reviewed. FINDINGS: The breasts are composed primarily of fat with minimal scattered fibroglandular densities in each breast. There are couple of benign-appearing microcalcifications in each breast. There are stable small benign-appearing nodular densities right breast. There is stable slightly asymmetrically increased glandular elements subareolar region left breast. IMPRESSION: Stable fatty type breast parenchyma with no suspicious lesions seen BI-RAD Category: 2 Benign Finding(s) FOLLOW-UP: 1YR 1 Year Follow-up (A letter has been sent to the patient regarding results of the study.) Dictated by: Dr. Omar Gleason MD 05/08/2020 12:40 Dr. Omar Gleason MD in [place] 05/08/2020 12:40
== END ==
PROVIDERS: PCP Family Medicine; Visit Provider Family Medicine
DX: Z12.31 Encounter for screening mammogram for malignant neoplasm of breast (principal); N60.19 Diffuse cystic mastopathy of unspecified breast
CPT/HCPCS: 77063; 77067

== ENCOUNTER → 2020-06-13 09:35 | Outpatient (CLI) | payer MEDICARE, BC, SELFPAY ==
[2020-06-13 11:36] LABS: Coronavirus 19 IgG Antibody Negative (Negative); Coronavirus 19 IgM Antibody Negative (Negative)
== END ==
PROVIDERS: Visit Provider Internal Medicine Gastroenterology
DX: Z01.89 Encounter for other specified special examinations (principal); Z12.11 Encounter for screening for malignant neoplasm of colon
CPT/HCPCS: 36415; 86328

== ENCOUNTER 2020-06-15 11:57 | Day surgery (SDC) | payer MEDICARE, BC, SELFPAY ==
[2020-06-09 13:55] VITALS: BMI 55.4
[2020-06-15 12:49] VITALS: BP 190/90; PULSE 87; RESP 18; TEMP 36.3; O2SAT 97
--- NOTE | 2020-06-15 13:16 | P.PN_ITS ---
[facility] Anesthesia Checklist - Patient Identification Patient Identification: Arm Band - Structural Data Admitted From: Home Planned Operative Procedure/s: colonoscopy Consent for Planned Operative Procedure(s) Verified: Yes Verified Documents: Surgical Consent, History and Physical - NPO Status Verified Time NPO: 00:00 - Additional verifications Anesthesia Reactions: No - Airway Assessment C-Spine Mobility Assessed: Yes (mp3) TMJ Mobility Assessed: Yes Dentition: Good Dentition - Neurological Assessment Level of Consciousness: Awake, Alert - Anesthesia Plan Anesthesia Risk discussed: Yes Anesthesia Plan: Verified ASA Class: III Anesthesia Type: MAC [facility] History I have reviewed the patient's past medical history: Yes Medical History: Reports:: Anxiety, Asthma, Atrial Fibrillation, Gastroesophageal Reflux Disease(GERD), Hyperlipidemia, Hypertension Denies:: Cancer, Diabetes Mellitus Type 1, Diabetes Mellitus Type 2, Internal Pacemaker, MRSA, Seizures *Have you ever received a pneumonia vaccine?: No *Have you received a flu vaccine this season?: No Anesthesia experience/problems:: nac Laterality Cases: Bilateral: Tonsillectomy Other Surgeries: Yes: Cholecystectomy, Hernia Repair, Skin Cancer Excision. No: Pacemaker Amputation: No Fractures: No - *Social History Last grade of school completed: High school graduate Smoking Status: Never smoker Alcohol Intake: current Alcohol Intake Frequency:: holidays/special occasions only Substance Use Type: denies use *Occupational Status:: disabled *Travel in the last 8 weeks: None Family Hx:: Cancer, Diabetes, Heart Attack, Hyperlipidemia, Hypertension, Thyroid Disorder, Coronary Artery Disease
[2020-06-15 14:09] VITALS: O2SAT 93
--- NOTE | 2020-06-15 14:44 | HMH.PROC ---
[facility] Procedure Note Procedure Note:: Colonoscopy Procedure Report: Colonoscopy with cold snare polypectomy Endoscopist: Kimani Sutton II, MD Referring physician: Alan Ventura MD Date of Procedure: June 15, 2020 Equipment: Olympus 180 variable stiffness pediatric colonoscope Sedation: MAC sedation Indication: Mrs. Farias is a 64-year-old female who is here for diagnostic colonoscopy secondary to a positive Cologuard. She is on Xarelto and aspirin. She recently had lab work showing hemoglobin 14.1 and hematocrit 43.3. The patient does get some generalized abdominal discomfort, gassiness and bloating. She has had left upper quadrant discomfort. She did see some bright red blood 1 to 2 months ago. She does report regular bowel movements but does take senna or a stool softener daily. She reports no hematochezia or melena. She reports no weight loss or family history of colon cancer. This is her first colonoscopy for diagnostic purposes. Procedure: Prior to the procedure, a history and physical exam was performed, and patient's medications and allergies were reviewed. The risks, benefits and alternatives of the sedation and procedure were discussed with the patient. All questions were answered and informed consent was obtained. The patient was brought to the procedure room. Patient identification and proposed procedure were verified by the physician and the nurse. The patient was placed in a left lateral decubitus position and the scope was passed under direct vision. Throughout the procedure, the patient's blood pressure, pulse, and oxygen saturations were monitored continuously. The colonoscopy was accomplished without difficulty. The patient tolerated the procedure well. Findings: On digital rectal examination there was normal rectal tone. There were no external hemorrhoids. The colonoscope was introduced through the anal canal to the rectum and advanced to the cecum. Most of the cecum was visualized but full intubation of the cecum was difficult due to size and redundant colon. The ileocecal valve was easily identified with most of the cecum. There was moderate melanosis coli noted throughout the colon. Upon withdrawal, there were a total of 9 colon polyps (ascending x3 (3, 4 and 5 mm), transverse x1 (5 mm), descending x1 (4 mm) and sigmoid x4 (3, 3, 4 and 6 mm)). All of these polyps were removed via cold snare polypectomy. Upon retroflexion within the rectum there were grade 2 internal hemorrhoids.The preparation was excellent throughout with Edge[place] Preparation Score of 9. The cecal time was 17 minutes. Impression: 1. Colonic polyps x9 2. Mild melanosis coli with moderate colonic redundancy 3. Grade 2 internal hemorrhoids Plan: I will follow up the polyp pathology and recommend repeat colonoscopy again in 3 years based upon the polyp histology. The patient does not have anemia and I do not feel that she has any significant chronic GI blood loss. I would encourage a fiber bowel regimen (MiraLAX plus bulk fiber supplement) on a long-term daily maintenance basis.
[2020-06-15 14:45] VITALS: BP 98/72; PULSE 77; RESP 12; TEMP 36.3; O2SAT 92
[2020-06-15 14:55] VITALS: BP 122/69; PULSE 71; RESP 16; O2SAT 94
[2020-06-15 15:05] VITALS: BP 128/79; PULSE 70; RESP 16; O2SAT 95
[2020-06-15 15:15] VITALS: BP 146/76; PULSE 66; RESP 16; TEMP 36.3; O2SAT 96
== END 2020-06-15 15:22 | disposition home or self-care (01) ==
LOC: OUTP 11:59
PROVIDERS: PCP Family Medicine; Visit Provider Internal Medicine Gastroenterology
PROC: 0DJD8ZZ Inspection of Lower Intestinal Tract, Via Natural or Artificial Opening Endoscopic (ICD-10-PCS; CPT 45378; principal; 2020-06-15 13:00)
DX: Q43.8 Other specified congenital malformations of intestine; K63.5 Polyp of colon; K63.89 Other specified diseases of intestine; K64.1 Second degree hemorrhoids; Z79.01 Long term (current) use of anticoagulants; I10 Essential (primary) hypertension; E78.5 Hyperlipidemia, unspecified; K21.9 Gastro-esophageal reflux disease without esophagitis; I48.91 Unspecified atrial fibrillation; F41.9 Anxiety disorder, unspecified; J45.909 Unspecified asthma, uncomplicated; Z90.49 Acquired absence of other specified parts of digestive tract
CPT/HCPCS: 45385; 88305

== ENCOUNTER 2020-12-16 17:40 | Emergency (ER) | payer MEDICARE, BC, SELFPAY ==
[2020-12-16 17:42] VITALS: BP 141/98; PULSE 82; RESP 16; TEMP 37; O2SAT 98; BMI 54.9
--- NOTE | 2020-12-16 18:01 | XR_ITS ---
PROCEDURE: XR KNEE LT 3V CLINICAL INDICATION: FALL COMPARISON: CR XR KNEE RT 3V from 12/16/2020 FINDINGS: No acute fractures or dislocations. Tricompartmental degenerative changes with joint space loss, prominence of the intercondylar tubercles and subchondral sclerosis noted. Mild osteopenia is noted. No suprapatellar joint effusion. Degenerative changes of the proximal tibia fibular joint. Minor cortical irregularity of the proximal fibular is noted. IMPRESSION: Minor cortical irregularity of the proximal 1/3 of the fibula is noted, incompletely evaluated on the current study. If clinically indicated, nuclear medicine bone scan should be considered for further evaluation. No acute fractures or dislocations. Dictated by: Cindy Huntley 12/17/2020 09:41 Cindy Huntley in [facility] 12/17/2020 09:41
--- NOTE | 2020-12-16 18:01 | XR_ITS ---
PROCEDURE: XR KNEE RT 3V CLINICAL INDICATION: FALL COMPARISON: No exams were available for comparison FINDINGS: No fracture or dislocation. No lytic or blastic change. There is normal mineralization. Tricompartmental degenerative changes with osteophyte formation, subchondral cystic changes and sclerosis noted primary crit prominence of the intercondylar tubercles. There is focal ossified density noted projecting over the posterior joint space, may represent fabella. Loose body should be considered. Other findings:None. IMPRESSION: No acute fractures or dislocations. Degenerative changes as described above. Dictated by: Cindy Huntley 12/17/2020 09:44 Cindy Huntley in [facility] 12/17/2020 09:44
--- NOTE | 2020-12-16 18:01 | XR_ITS ---
PROCEDURE: XR TIBIA FIBULA RT 2V CLINICAL INDICATION: FALL COMPARISON: No exams were available for comparison FINDINGS: No fracture or dislocation. No lytic or blastic change. There is normal mineralization. The visualized ankle joint is unremarkable. No significant soft tissue abnormality. IMPRESSION: No acute findings. Dictated by: Cindy Huntley 12/17/2020 09:42 Cindy Huntley in [facility] 12/17/2020 09:42
--- NOTE | 2020-12-16 18:19 | HMH.EDUTC ---
[facility] [place] Clinical Impression: Right leg pain Fall Qualifiers: Encounter type: initial encounter Qualified Code(s): W19.XXXA - Unspecified fall, initial encounter Bilateral knee pain Qualifiers: Chronicity: acute Qualified Code(s): M25.561 - Pain in right knee Disposition: Home, Self-Care Condition on Discharge: Good Instructions: Contusion, DI for Knee Pain Additional Instructions: Rest the extremity, apply ice for 15 minutes as tolerated three or four times per day, Wear the nikole wrap for compression, Elevate your legs as tolerated while you are resting. Follow up with Dr. Chand (orthopedics). Sometimes there can be fractures that don't show up well on the first set of x-rays. So, you should follow up if you continue to have symptoms. I put in a referral but you need to call his office and schedule an appointment. Follow up with your regular doctor. Use your walker for ambulation assistance. GO TO THE ER FOR ANY WORSENING SYMPTOMS Referrals: Yumiko Ventura MD [Primary Care Provider] - Shala Chand MD [Physician] - Time of Disposition: 19:26 Medical Decision Making - Medical Records Medical records reviewed: No: I reviewed the patient's medical records. - Neeraj Inquiry Pt receiving controlled substance: No Vital Signs: 12/16/20 17:42 12/16/20 19:28 Temperature 98.6 F 98.2 F Temperature Source Oral Oral Pulse Rate 80 Pulse Rate [Right] 82 Respiratory Rate 16 16 Blood Pressure 140/87 Blood Pressure [Right Arm] 141/98 H Blood Pressure Mean [Right Arm] 112 Blood Pressure Source Automatic Cuff Blood Pressure Source [Right Arm] Automatic Cuff Blood Pressure Position Sitting Blood Pressure Position [Right Arm] Sitting 02 Sat by Pulse Oximetry 98 Oxygen Delivery Method Room Air Room Air [facility] [place] - General Stated complaint: AO 12/16 @1000 injured legs Time Seen by Provider: 12/16/20 18:37 - History of Present Illness Provider Complaint: She states that she fell while walking up some steps to her house. She has bilateral knee pain and right lower leg pain. - Related Data Home Medications Medication Instructions Recorded Confirmed Aspirin [Adult Aspirin Regimen] 81 mg PO DAILY 05/22/19 06/09/20 Atorvastatin Calcium [Lipitor 20mg 20 mg PO HS 05/22/19 06/09/20 Tab] Sennosides [Senna] 4 tab PO BID 05/22/19 06/09/20 fluticasone furoate 200 1 inh INHALATION DAILY 06/05/20 06/09/20 mcg-vilanterol 25 mcg/dose inhalation powder fluticasone propionate 50 2 spray INTRANASAL DAILY ml 06/05/20 06/09/20 mcg/actuation nasal spray,suspension furosemide 40 mg tablet 40 mg PO DAILY tab 06/05/20 06/09/20 Irbesartan [Avapro 300mg 300 mg PO DAILY 06/09/20 06/09/20 tablet] Rivaroxaban [Xarelto 20mg Tablet] 20 mg PO DAILY 06/09/20 06/09/20 dilTIAZem HCL [Cardizem ER 240mg 240 mg PO DAILY 06/09/20 06/15/20 Capsule] Allergies Allergy/AdvReac Type Severity Reaction Status Date / Time No Known Drug Allergies Allergy Verified 06/09/20 13:51 [facility] History - Hepatitis A Screen Attestation statement:: This patient has been screened for Hepatitis A risk factors. I have reviewed the patient's past medical history: Yes Medical History: Reports:: Anxiety, Asthma, Atrial Fibrillation, Gastroesophageal Reflux Disease(GERD), Hyperlipidemia, Hypertension Denies:: Cancer, Diabetes Mellitus Type 1, Diabetes Mellitus Type 2, Internal Pacemaker, MRSA, Seizures Comment: LYLE Laterality Cases: Bilateral: Tonsillectomy Other Surgeries: Yes: Cholecystectomy, Hernia Repair, Skin Cancer Excision. No: Pacemaker Amputation: No Fractures: No - Social History Smoking Status: Never smoker Alcohol Intake: current Alcohol Intake Frequency:: holidays/special occasions only Substance Use Type: denies use Occupational Status: disabled - Psychiatric History Pschychiatric History:: Reports:: Anxiety Family Hx:: Cancer, Diabetes, Heart Attack, Hype
[2020-12-16 19:28] VITALS: BP 140/87; PULSE 80; RESP 16; TEMP 36.8; O2SAT 98
== END 2020-12-16 19:31 | disposition home or self-care (01) ==
PROVIDERS: Emergency Provider Nurse Practitioner Family; PCP Family Medicine
DX: M25.561 Pain in right knee (principal); M79.661 Pain in right lower leg; W10.9XXA Fall (on) (from) unspecified stairs and steps, initial encounter; Y92.019 Unspecified place in single-family (private) house as the place of occurrence of the external cause; I48.91 Unspecified atrial fibrillation; K21.9 Gastro-esophageal reflux disease without esophagitis; I10 Essential (primary) hypertension; E78.5 Hyperlipidemia, unspecified; F41.9 Anxiety disorder, unspecified; Z79.899 Other long term (current) drug therapy
CPT/HCPCS: G0463; 73562; 73590; 99202

== ENCOUNTER 2021-04-08 14:00 | Outpatient (RCR) | payer MEDICARE, BC, SELFPAY ==
--- NOTE | 2021-02-01 14:39 | HMH.PTOPWND ---
Rehab Outpt Wound Evaluation Rehab OP Wound Evaluation Start: 02/01/21 13:53 Freq: Status: Active Protocol: Document 02/01/21 14:33 PORTIA (Rec: 02/01/21 14:39 PHORNE [id number]) Electronically Signed By Nikos Goncalves, PT 02/01/21 14:33 Subjective/History History History Pt is 65 yowf who presents with c/o B LE edema x ` 2 mos S/P ground level fall at home. She reports she fell forward and had multipl hematoma as a result. She had increased pain and has been using a RW for ambulation since this fall. She c/o increased tendenress to palpation throughout the lower legs and several hard spots where some of her bruises were. SHe has hx of HTN and Morbid Obesity. Subjective Subjective Pain currently 2/10 , but has been worse since her fall. Tenderness to palpation 2/4 B lower legs. She presents with 1+ pitting edema and pockets of fibrotic edema in some area . Lymphedema Eval Classification of Lymphedema Secondary Lymphedema Yes Stemmer's sign Stemmer's Sign yes Stage of Lymphedema Lymphedema stages Stage II (Pitting edema, increased fibrosis w/ decreased pitting) Skin Changes Dry Skin Yes Skin Folds Yes Hyperkeratosis Yes: mild Redness Yes Wounds Yes Brittle Uneven Nails Yes Discoloration of Skin Yes Other Changes Yes Pain Scale Pain Scale (0-10) 2 Manual Lymphatic Drainage Treatment Area MLD Treatment Area Right Lower Extremity,Left Lower Extremity Wound Problems/Impairments Impairments Problems/Impairmments Palpation Tenderness,Impaired Range of Motion,Impaired Strength,Impaired Endurance, Impaired Transfers,Impaired Gait Pattern,Impaired Walking, Impaired Standing,Impaired Recreational Activities, Increased Edema,Lymphedema Present,Subjective C/O Pain,
--- NOTE | 2021-03-03 14:41 | HMH.RHREAS ---
Rehab Reassessment Rehab OP Re-assessment Start: 03/03/21 14:36 Freq: Status: Active Protocol: Document 03/03/21 14:37 PORTIA (Rec: 03/03/21 14:40 PORTIA [id number]) Electronically Signed By Nikos Goncalves, PT 03/03/21 14:37 Rehab Re-assessment Subjective Subjective Pt reports she feels much better overall and feels she is able to walk a little better now. Objective Objective Notes Circumferential measurements: R LE total -16.5 cm since initial eval. L LE total -11.3 cm since initial eval. 1+ pitting edema to B lower legs. Assessment Progress Assessment Progressing as Expected Assessment Notes Pt showing significant reduction in B LE edema overall with less c/o heaviness and pain noted. Less pitting edema noted as well, however some erythema and dry skin remain. Patient goals met ST,2,3,4,5,6 Goals Not Met LT,2,3,4,5,6,7,8 Revised Goals none Plan Plan Continue per initial POC. Frequency of Therapy 2 x/wk Duration of therapy 8 wks Time and Billing Re-Eval Time 15 Re-Eval Billing Units 1 PHYSICIAN CERTIFICATION: I certify the specified therapy services for Paty Farias are required, authorized, and reviewed every 30 days.
--- NOTE | 2021-03-30 14:38 | HMH.RHREAS ---
Rehab Reassessment Rehab OP Re-assessment Start: 03/03/21 14:36 Freq: Status: Active Protocol: Document 03/30/21 14:33 PORTIA (Rec: 03/30/21 14:37 PORTIA [id number]) Electronically Signed By Nikos Goncalves, PT 03/30/21 14:33 Rehab Re-assessment Subjective Subjective Pt reports tenderness to palpation on R anterior dominguez with new onset blisters to the same area x ~ 1 wk. Objective Objective Notes Blisters appear filled with serous fluid and minimal surrounding redness noted. Less stiffness in the tissue of the R LE overall. Assessment Progress Assessment Progressing as Expected Assessment Notes Improving edema throughout LE, but new onset blister is concerning. Blisters do appear to be healing steadily and have not opened to drain at this time. Patient goals met ST,2,3,4,5,6 Goals Not Met LT,2,3,4,5,6,7,8 Revised Goals none Plan Plan Continue per initial POC. Frequency of Therapy 2 x/wk Duration of therapy 8 wks Time and Billing Re-Eval Time 15 Re-Eval Billing Units 1 PHYSICIAN CERTIFICATION: I certify the specified therapy services for Paty Farias are required, authorized, and reviewed every 30 days.
== END 2021-04-08 14:05 | disposition home or self-care (01) ==
LOC: PT 14:00
PROVIDERS: PCP Family Medicine; Visit Provider Family Medicine
DX: R60.0 Localized edema (principal)
CPT/HCPCS: 29580; 97140; 97162; 97164; 97760

== ENCOUNTER 2022-04-28 20:34 | Emergency (ER) | payer MEDICARE, BC, SELFPAY ==
[2022-04-28 20:54] VITALS: BP 156/72; PULSE 86; RESP 15; TEMP 36.7; O2SAT 96; BMI 54.1
--- NOTE | 2022-04-28 21:01 | XR_ITS ---
PROCEDURE INFORMATION: Exam: XR Pelvis Exam date and time: 04/28/2022 9:23 PM Age: 66 years old Clinical indication: Injury or trauma; Fall; Blunt trauma (contusions or hematomas); Does not apply; Pelvic region TECHNIQUE: Imaging protocol: Radiologic exam of the pelvis. Views: 1 or 2 view. COMPARISON: ABDPELWO CT abdomen pelvis wo con 11/20/2017 8:44 AM FINDINGS: Bones/joints: Intact. No acute fractures or dislocations identified. There are no lytic or blastic lesions. The joints are preserved. Soft tissues: Unremarkable. IMPRESSION: No acute fractures or listhesis.
--- NOTE | 2022-04-28 21:01 | XR_ITS ---
PROCEDURE INFORMATION: Exam: XR Right Hand Exam date and time: 04/28/2022 9:16 PM Age: 66 years old Clinical indication: Injury or trauma; Fall; Blunt trauma (contusions or hematomas); Hand; Right TECHNIQUE: Imaging protocol: Radiologic exam of the Right hand. Views: 3 or more views. COMPARISON: No relevant prior studies available. FINDINGS: Bones/joints: The regional bones are intact. No lytic or blastic lesions are identified. There is no evidence of dislocation. Soft tissues: Normal. IMPRESSION: No acute radiographic abnormalities identified.
--- NOTE | 2022-04-28 21:01 | CT_ITS ---
PROCEDURE INFORMATION: Exam: CT Lumbar Spine Without Contrast Exam date and time: 04/28/2022 9:14 PM Age: 66 years old Clinical indication: Injury or trauma; Fall; Blunt trauma (contusions or hematomas) TECHNIQUE: Imaging protocol: Computed tomography of the lumbar spine without contrast. Radiation optimization: All CT scans at this facility use at least one of these dose optimization techniques: automated exposure control; mA and/or kV adjustment per patient size (includes targeted exams where dose is matched to clinical indication); or iterative reconstruction. COMPARISON: CR XR LUMBAR SPINE MIN 4V 05/13/2019 3:19 PM FINDINGS: Bones/joints: No acute fracture. Normal alignment. L1-L2: No significant disc protrusion. No severe spinal canal stenosis. No significant neural foraminal narrowing. L2-L3: No significant disc protrusion. No severe spinal canal stenosis. No significant neural foraminal narrowing. L3-L4: No significant disc protrusion. No severe spinal canal stenosis. No significant neural foraminal narrowing. L4-L5: Disc protrusion, facet and ligamentum hypertrophy causing multifactorial moderate to severe central canal stenosis. Bilateral foraminal narrowing. L5-S1: Severe disc desiccation. No significant disc protrusion. No severe spinal canal stenosis. Bilateral facet hypertrophy a No significant neural foraminal narrowing. Kidneys and ureters: Right-sided nonobstructing nephrolithiasis. Soft tissues: Unremarkable. Other findings: Limited by a very poor signal to noise ratio related to the patient's body habitus. IMPRESSION: 1. No acute fractures or listhesis. 2. L4-L5 disc protrusion, facet and ligamentum hypertrophy causing multifactorial moderate to severe central canal stenosis. Bilateral foraminal narrowing.
--- NOTE | 2022-04-28 21:01 | CT_ITS ---
PROCEDURE INFORMATION: Exam: CT Thoracic Spine Without Contrast Exam date and time: 04/28/2022 9:12 PM Age: 66 years old Clinical indication: Injury or trauma; Fall TECHNIQUE: Imaging protocol: Computed tomography of the thoracic spine without contrast. Radiation optimization: All CT scans at this facility use at least one of these dose optimization techniques: automated exposure control; mA and/or kV adjustment per patient size (includes targeted exams where dose is matched to clinical indication); or iterative reconstruction. COMPARISON: CT CERVICAL SPINE WO CON 04/28/2022 9:06 PM FINDINGS: Bones/joints: No acute fracture. Normal alignment. Discs/Spinal canal/Neural foramina: Thoracic disc desiccation. No significant disc protrusion. No severe spinal canal stenosis. No significant neural foraminal narrowing. Soft tissues: Unremarkable. IMPRESSION: No acute fractures or listhesis.
--- NOTE | 2022-04-28 21:01 | CT_ITS ---
PROCEDURE INFORMATION: Exam: CT Cervical Spine Without Contrast Exam date and time: 04/28/2022 9:06 PM Age: 66 years old Clinical indication: Injury or trauma; Fall; Blunt trauma TECHNIQUE: Imaging protocol: Computed tomography of the cervical spine without contrast. Radiation optimization: All CT scans at this facility use at least one of these dose optimization techniques: automated exposure control; mA and/or kV adjustment per patient size (includes targeted exams where dose is matched to clinical indication); or iterative reconstruction. COMPARISON: SINUSWO CT sinus wo con 11/20/2017 8:18 AM FINDINGS: Bones/joints: There is no fracture. Cervical vertebra maintain their height. There is no fracture of the posterior elements. Discs/Spinal canal/Neural foramina: There is spondylosis and disc space narrowing most advanced at C5-C6. A posterior osteophyte and disc bulge at this level results in moderate central spinal stenosis. There is left foraminal stenosis at this level. Lungs: Lung apices are normal. Soft tissues: Unremarkable. IMPRESSION: No fracture of the cervical spine.
--- NOTE | 2022-04-28 21:01 | CT_ITS ---
PROCEDURE INFORMATION: Exam: CT Head Without Contrast Exam date and time: 04/28/2022 9:06 PM Age: 66 years old Clinical indication: Injury or trauma; Fall; Blunt trauma (contusions or hematomas); Consciousness not specified TECHNIQUE: Imaging protocol: Computed tomography of the head without contrast. Radiation optimization: All CT scans at this facility use at least one of these dose optimization techniques: automated exposure control; mA and/or kV adjustment per patient size (includes targeted exams where dose is matched to clinical indication); or iterative reconstruction. COMPARISON: SINUSWO CT sinus wo con 11/20/2017 8:18 AM FINDINGS: Brain: TheThere is no evidence of infarct, guerra-white matter differentiation is preserved. There is no hemorrhage or extra-axial collection. There is no mass. Cerebral ventricles: There is no hydrocephalus. Paranasal sinuses: See maxillofacial CT. Mastoid air cells: Visualized mastoid air cells are well aerated. Bones/joints: No calvarial fracture. Soft tissues: Unremarkable. IMPRESSION: No intracranial injury or lesion
--- NOTE | 2022-04-28 21:01 | XR_ITS ---
PROCEDURE INFORMATION: Exam: XR Chest Exam date and time: 04/28/2022 9:22 PM Age: 66 years old Clinical indication: Injury or trauma; Fall; Blunt trauma (contusions or hematomas) TECHNIQUE: Imaging protocol: Radiologic exam of the chest. Views: 1 view. COMPARISON: CR XR CHEST PORTABLE 05/22/2019 5:36 PM FINDINGS: Lungs: Well aerated with no evidence of consolidations, interstitial patterns or pulmonary nodules. Pleural spaces: No evidence of effusions or pneumothorax. Heart/Mediastinum: The cardiomediastinal silhouette is normal in size and configuration. There is no evidence of cardiomegaly. Bones/joints: Intact. IMPRESSION: No radiographic evidence of an acute pulmonary process.
--- NOTE | 2022-04-28 21:04 | CT_ITS ---
PROCEDURE INFORMATION: Exam: CT Maxillofacial Without Contrast Exam date and time: 04/28/2022 9:10 PM Age: 66 years old Clinical indication: Injury or trauma; Fall; Blunt trauma (contusions or hematomas); Nose and maxilla and lip/oral cavity TECHNIQUE: Imaging protocol: Computed tomography of the of the face without contrast. Radiation optimization: All CT scans at this facility use at least one of these dose optimization techniques: automated exposure control; mA and/or kV adjustment per patient size (includes targeted exams where dose is matched to clinical indication); or iterative reconstruction. COMPARISON: SINUSWO CT sinus wo con 11/20/2017 8:18 AM FINDINGS: Orbital cavities: Orbits are normal. Globes are unremarkable. Bones/joints: There is no fracture of the nasal bones. There is no fracture of the orbits or zygomatic arches. There is no fracture of the sinuses. There is no fracture of the maxilla. There is no fracture or dislocation of the mandible. Paranasal sinuses: No evidence of sinusitis. Soft tissues: Unremarkable. IMPRESSION: No fracture of the facial bones
[2022-04-28 21:58] VITALS: BP 206/103; PULSE 72; O2SAT 95
--- NOTE | 2022-04-28 22:30 | PC.NURSE ---
Rounded on pt. No needs or complaints voiced at this time.
[2022-04-28 23:05] VITALS: BP 224/115; PULSE 75; O2SAT 96
--- NOTE | 2022-04-28 23:11 | PC.NURSE ---
Rounded on pt. Pt voiced no needs or complaints at this time. Updated pt on POC.
--- NOTE | 2022-04-28 23:33 | HMH.EDFALL ---
ED Disposition Clinical Impression: Concussion with loss of consciousness Qualifiers: Encounter type: initial encounter Qualified Code(s): S06.0X9A - Concussion with loss of consciousness of unspecified duration, initial encounter Contusion of face Qualifiers: Encounter type: initial encounter Qualified Code(s): S00.83XA - Contusion of other part of head, initial encounter Fall Qualifiers: Encounter type: initial encounter Qualified Code(s): W19.XXXA - Unspecified fall, initial encounter Lumbar spinal stenosis Qualifiers: Neurogenic claudication status: without neurogenic claudication Qualified Code(s): M48.061 - Spinal stenosis, lumbar region without neurogenic claudication Disposition: Home, Self-Care Condition on Discharge: Good Instructions: DI for Contusion Additional Instructions: use meds and see pcp for follow up Referrals: Yumiko Ventura MD [Primary Care Provider] - - Critical Care Critical Care Time: No Attestation: On 04/28/22, the high probability of a clinically significant, sudden or life threatening deterioration of the following system(s) required my full and direct attention, intervention and personal management. The time I documented below is in addition to time spent performing reported procedures but includes the following listed in this critical care notation. Medical Decision Making - Medical Records Medical records reviewed: Yes: I reviewed the patient's medical records. - Neeraj Inquiry Pt receiving controlled substance: No Vital Signs: 04/28/22 20:54 04/28/22 21:58 04/28/22 23:05 Temperature 98.1 F Temperature Source Oral Pulse Rate 72 75 Pulse Rate [Right Brachial] 86 Respiratory Rate 15 Blood Pressure 206/103 H 224/115 H Blood Pressure [Right Arm] 156/72 H Blood Pressure Mean [Right Arm] 100 Blood Pressure Source [Right Arm] Automatic Cuff Blood Pressure Position [Right Arm] Sitting 02 Sat by Pulse Oximetry 96 95 96 Oxygen Delivery Method Room Air Room Air Room Air - Lab Data Lab results reviewed: Yes: I reviewed the patient's lab results. - Radiology Data #1 Image(s): Chest, Hand, Pelvis Image Reviewed: Yes I have reviewed radiologist's interpretation Preliminary Findings: No Fracture Seen - CT Data CT Scan: Head, C-Spine, T-Spine, L-Spine Time Received: 23:[address] Reviewed: Yes: I have viewed the radiologist's interpretation Preliminary Findings: Abnormal, No Fracture Seen Medical Decision Narrative: has stable exam and xrays and asked to call pcp leda about lumbar xrays Fall HPI - General Chief Complaint: Fall Stated Complaint: [id number]@1520@HOME facial injuries Time Seen by Provider: 04/28/22 23:33 Mode of Arrival: Family Vehicle Source of Information: Patient, Medical Record Limitations: No Limitations Description of Symptoms (Recalled from ER Triage Doc. by RN): PATIENT PRESENTS FOR CHIEF COMPLAINT OF FACE/HEAD PAIN. STATES AT APPROX 1520 TODAY (6 HOURS AGO) PATIENT TRIPPED OVER A CORD AND 'FACEPLANTED' ONTO [facility] [facility]. SHE HAS SIGNIFICANT BRUISING AND SWELLING TO CHIN/LIPS/NOSE AND HAS A HEADACHE. CONCERNED BECAUSE SHE TAKES XARELTO. NO LOC. NO VOMITING/NAUSEA NOTED. PERRLA. ALSO COMPLAINS OF LOW BACK PAIN, MID BACK PAIN, RIGHT HAND PAIN. - History of Present Illness HPI Narrative: trip type injury with back and facial pain after fall w/o loc - on [place] complaint: fall Onset (ago): hour(s) Fall from: standing Fall witnessed: no Place fall occurred: home Loss of consciousness: none Prolonged down time: no Symptoms prior to fall: none Context: tripped/slipped Location of injury: head, face, back Location of injury - extremities: Right: hand Severity: moderate Associated symptoms (after fall): denies - Related Data Home Medications Medication Instructions Recorded Confirmed Aspirin [Adult Aspirin Regimen] 81 mg PO DAILY 05/22/19 06/09/20 Atorvastatin Calcium [Lipitor 20mg 20 mg PO HS 05/22/19
--- NOTE | 2022-04-28 23:35 | PC.NURSE ---
MD at BS speaking with pt about results and POC.
[2022-04-28 23:49] VITALS: BP 181/118; PULSE 82; RESP 19; TEMP 36.7; O2SAT 97
== END 2022-04-28 23:53 | disposition home or self-care (01) ==
PROVIDERS: Emergency Provider Emergency Medicine; PCP Family Medicine
DX: S06.0X9A Concussion with loss of consciousness of unspecified duration, initial encounter (principal); S00.83XA Contusion of other part of head, initial encounter; M48.061 Spinal stenosis, lumbar region without neurogenic claudication; Z79.01 Long term (current) use of anticoagulants; W01.0XXA Fall on same level from slipping, tripping and stumbling without subsequent striking against object, initial encounter; Z79.82 Long term (current) use of aspirin; Z79.899 Other long term (current) drug therapy; I48.91 Unspecified atrial fibrillation; I10 Essential (primary) hypertension; E78.5 Hyperlipidemia, unspecified; J45.909 Unspecified asthma, uncomplicated; K21.9 Gastro-esophageal reflux disease without esophagitis; F41.9 Anxiety disorder, unspecified
CPT/HCPCS: 70450; 70486; 71045; 72125; 72128; 72131; 72170; 73130; 99285

== ENCOUNTER 2023-07-09 12:10 | Inpatient (IN) | payer MEDICARE, BC, SELFPAY ==
[2023-07-09] VITALS (18 sets, daily range): BP systolic 135–177; BP diastolic 73–112; PULSE 122–162; RESP 22–30; TEMP 37.2–39.1; O2SAT 89–100; BMI 53.2; BMI 52.7
--- NOTE | 2023-07-09 12:34 | XR_ITS ---
PROCEDURE INFORMATION: Exam: XR Chest Exam date and time: 07/09/2023 12:33 PM Age: 67 years old Clinical indication: Shortness of breath; Patient HX: R/O covid PT, C/O SOA x days w fever and generalized weakness. ; Additional info: Fever, cough TECHNIQUE: Imaging protocol: Radiologic exam of the chest. Views: 2 views. COMPARISON: CR XR CHEST PORTABLE 04/28/2022 9:22 PM FINDINGS: Lungs: The NG ground-glass infiltrate right mid lung zone. Area of consolidation right lung base as well as small wedge-shaped area of consolidation left lower lobe obscured by left heart border. Findings likely represent combination of pneumonia and atelectasis. Pleural spaces: Unremarkable. No pleural effusion. No pneumothorax. Heart/Mediastinum: Heart is moderately enlarged. Pulmonary vascular distribution indicating elevated central venous pressure. Bones/joints: Unremarkable for age. IMPRESSION: 1. Bibasilar consolidation and right mid lung ground-glass infiltrate likely representing combination of pneumonia and atelectasis. 2. Cardiomegaly with elevated central venous pressure.
--- NOTE | 2023-07-09 12:38 | PC.NURSE ---
notified rad of xray order
[2023-07-09 12:58] LABS: Microscopic, Urine URINE MICROSCOPIC (MICROSCOPIC)
[2023-07-09 13:00] LABS: Appearance,Urine CLEAR (Clear); Blood, Urine TRACE-I (Negative); Color,Urine YELLOW (Yellow); Glucose,Urine (UA) Negative (Negative); Ketones,Urine TRACE (Negative); Leukocyte Esterase,Urine Negative (Negative); Nitrate,Urine Negative (Negative); Protein,Urine 2+ (Negative); Specific Gravity, Urine >= 1.030 (1.005-1.030)
[2023-07-09 13:04] LABS: Bilirubin,Urine Negative (Negative)
[2023-07-09 13:14] LABS: Coronavirus 19, PCR Not Detected (NotDetected); Influenza A, PCR Not Detected (NotDetected); Influenza B, PCR Not Detected (NotDetected)
[2023-07-09 13:16] LABS: Bacteria,Urine 1+ /lpf; Mucus,Urine 1+ /lpf
--- NOTE | 2023-07-09 13:16 | HMH.EDGENADL ---
Discharge Plan Disposition Patient Disposition: Admitted Chief Complaint: Fever Prescriptions Prescriptions: No Action furosemide 40 mg tablet 40 mg PO DAILY Patient Comments: TK 1 T PO QD fluticasone propionate 50 mcg/actuation spray,suspension 2 spray INTRANASAL DAILY Patient Comments: USE TWO SPRAYS IN EACH NOSTRIL DAILY Breo Ellipta 200-25 mcg/dose blister with device 1 inh INHALATION DAILY diltiazem HCl 240 MG capsule,extended release 24hr 240 mg PO DAILY irbesartan 300 MG tablet 300 mg PO DAILY rivaroxaban 20 MG tablet 20 mg PO DAILY aspirin 81 MG tablet,delayed release (DR/EC) 81 mg PO DAILY sennosides 8.6 MG tablet 4 tab PO BID atorvastatin 20 MG tablet 20 mg PO HS Referrals Follow up/Referrals: Yumiko Ventura MD [Primary Care Provider] - See instructions Clinical Impressions Clinical Impression: A-fib, Sepsis, Pneumonia Discharge ED Provider: Bruce Sawyer General Adult HPI General Chief complaint: Fever Stated complaint: SOA, fever 103.3 Time Seen by Provider: 07/09/23 12:15 Mode of Arrival: Wheelchair Source of Information: Patient Limitations: No Limitations Description of Symptoms (Recalled from ER Triage Doc. by RN): patient in wheelchair upon arrival. She states that she started feeling ill 3 days ago on 07/06. Called her PCP who prescribed tamiflu over the phone. Fever as high as 103F, 100.8F during triage. C/O N/V/D and increased weakness, body aches, chills, SOA with minimal exertion and lethargy. 1000mg tylenol taken around 0900. History of Present Illness HPI narrative: 67-year-old female history of hypertension, hyperlipidemia, A-fib on Xarelto, CHF, lymphedema presenting with multiple complaints. Patient states that 2 to 3 days prior to arrival, she started having body aches and chills. Started having worsening cough over the past couple days and is now having productive cough. Fevers up to 103 ?F, no nausea or vomiting, chest pains, or any other concerns. Try to wait till tomorrow, 07/10 to see her family doctor, but could not wait any longer. Related Data Home Medications Medication Instructions Recorded Confirmed aspirin 81 mg tablet,delayed 81 mg PO DAILY HEART HEALTH 05/22/19 06/09/20 release atorvastatin 20 mg tablet 20 mg PO HS Cholesterol 05/22/19 06/09/20 sennosides 8.6 mg tablet 4 tab PO BID constipation 05/22/19 06/09/20 fluticasone furoate 200 1 inh inhalation DAILY Asthma 06/05/20 06/09/20 mcg-vilanterol 25 mcg/dose inhalation powder (Breo Ellipta) fluticasone propionate 50 2 spray intranasal DAILY allergies 06/05/20 06/09/20 mcg/actuation nasal spray,suspension furosemide 40 mg tablet 40 mg PO DAILY bl thinner 06/05/20 06/09/20 diltiazem HCl 240 mg 240 mg PO DAILY Heartburn 06/09/20 06/15/20 capsule,extended release 24 hr irbesartan 300 mg tablet 300 mg PO DAILY * 06/09/20 06/09/20 rivaroxaban 20 mg tablet 20 mg PO DAILY bl thinner 06/09/20 06/09/20 Allergies Allergy/AdvReac Type Severity Reaction Status Date / Time No Known Drug Allergies Allergy Verified 06/09/20 13:51 [facility] Disclaimer: The information contained in this section may have been updated after the patient was seen, as this information can be updated by other users. Medical History (Updated 07/09/23 @ 14:02 by Bruce Sawyer MD) Pulmonary nodules Social History Smoking Status: Never smoker alcohol intake: current substance use type: denies use current occupational status: disabled Travel in the last 8 weeks: None caffeine: No ROS Obtained: Yes All systems reviewed & no additional complaints except as documented Physical Exam General General appearance: alert, in distress and obese Head Head exam: atraumatic and normocephalic Eye Eye exam: Present normal appearance, PERRL and EOMI ENT ENT exam: Present mucous membranes moist Neck Neck exam: Present normal inspecti
[2023-07-09 13:17] LABS: Basophils % 0.1 % (0.1-2.0); Eosinophils # 0.2 K/mm3 (0.0-0.4); Eosinophils % 1.5 % (0.1-12.0); Hematocrit 30.2 % (37.0-47.0); Hemoglobin 9.9 g/dL (12.2-16.2); Lymphocytes # 0.5 K/mm3 (0.7-4.5); Lymphocytes % 2.9 % (10-50); Mean Corpuscular HGB Conc 32.7 g/dL (31.8-35.4); Mean Corpuscular Hemoglobin 29.1 pg (27.0-31.2); Mean Corpuscular Volume 88.8 fl (81-99); Mean Platelet Volume 7.9 fl (7.4-10.4); Monocytes # 0.6 K/mm3 (0.1-1.0); Monocytes % 3.7 % (1.7-9.3); Neutrophils # 14.1 K/mm3 (1.8-7.8); Neutrophils % 91.8 % (37.0-80.0); Platelet Count 245 K/mm3 (142-424); White Blood Count 15.3 K/mm3 (4.8-10.8)
[2023-07-09 13:18] LABS: MANUAL DIFFERENTIAL MANUAL DIFFERENTIAL (MANUAL DIFF)
[2023-07-09 13:20] LABS: Chloride 102 mmol/L (98-107); Potassium 3.7 mmoL/L (3.5-5.1); Sodium 134 mmol/L (136-145)
[2023-07-09 13:23] LABS: Alanine Aminotransferase 29 U/L (12-78); Albumin Level 3.5 g/dl (3.5-5.0); Albumin/Globulin Ratio 1.1 (1.1-1.8); Alkaline Phosphatase 162 U/L (38-126); Anion Gap 10.7 mEq/L (5-15); Aspartate Amino Transferase 30 U/L (14-36); Bilirubin,Total 0.6 mg/dl (0.2-1.3); Blood Urea Nitrogen 12 mg/dl (7-17); Carbon Dioxide 25 mmol/L (22.0-30.0); Creatinine Clearance Estimated 50 mL/min (50-200); Estimated Glomerular Filt Rate 99 ml/min (>60); GFR (African American) 120 ML/MIN (>60); Globulin 3.3 g/dL (1.3-3.2); Total Protein,Serum 6.8 g/dl (6.3-8.2)
[2023-07-09 13:24] LABS: Calcium 8.7 mg/dl (8.4-10.2); Glucose 212 mg/dl (74-100)
--- NOTE | 2023-07-09 13:25 | ECG_ITS ---
APPROVED REPORT Exam: Resting ECG HR:168 bpm ECG Measurements Heart Rate 168 AXES QRSd 109 QRS -53 QT 259 T 80 QTc 350 Conclusion ATRIAL FIBRILLATION WITH RAPID VENTRICULAR RESPONSE LEFT AXIS DEVIATION [QRS AXIS < -30] ANTEROSEPTAL MYOCARDIAL INFARCTION , OF INDETERMINATE AGE [40+ ms Q WAVE IN V1-V4] CRITICAL TEST RESULT UNCONFIRMED REPORT Electronically signed by : Good Nagy MD 07/10/2023 08:31:23
--- NOTE | 2023-07-09 13:27 | ECG_ITS ---
APPROVED REPORT Exam: Resting ECG HR:174 bpm ECG Measurements Heart Rate 174 AXES QRSd 110 QRS -56 QT 258 T 83 QTc 351 Conclusion ATRIAL FIBRILLATION WITH RAPID VENTRICULAR RESPONSE LEFT AXIS DEVIATION [QRS AXIS < -30] ANTEROSEPTAL MYOCARDIAL INFARCTION , OF INDETERMINATE AGE [40+ ms Q WAVE IN V1-V4] CRITICAL TEST RESULT UNCONFIRMED REPORT Electronically signed by : Good Nagy MD 07/11/2023 14:48:44
[2023-07-09 13:41] LABS: T4 (Thyroxine) 7.5 ug/dl (5.53-11.0)
[2023-07-09 13:42] LABS: Lymphocytes % 2 % (10-50); Monocytes % 5 % (2-9); Neutrophils % 93 % (42-76); Total Cells Counted 100
[2023-07-09 13:43] LABS: Platelet Estimate Normal; RBC Morphology Normal
[2023-07-09 13:45] LABS: Lactic Acid 2.4 mmol/L (0.7-2.1)
[2023-07-09 13:50] LABS: Troponin I < 0.01 ng/ml (0.00-0.034)
--- NOTE | 2023-07-09 13:52 | PC.NURSE ---
DR PARKINSON SPEAKING WITH DR MONGE ABOUT POSSIBLE ADMISSION
--- NOTE | 2023-07-09 13:53 | PC.NURSE ---
Dr. Sawyer speaking with Dr. Mayo about possible admission
[2023-07-09 13:55] LABS: Thyroid Stimulating Hormone 1.09 uIU/mL (0.465-4.68)
--- NOTE | 2023-07-09 13:57 | PC.NURSE ---
notified greenhouse florist of admission.
--- NOTE | 2023-07-09 14:10 | HMH.PHAINT1 ---
Pharmacy Intervention Comments: MEDICATION RECONCILIATION COMPLETED ON PATIENT USING EXTERNAL FILL HISTORY FROM PHARMACY. -ONEIL ARELLANO, JEAN MARIED
--- NOTE | 2023-07-09 14:21 | PC.NURSE ---
Delma Jordan RN notified RT of verbal orders from Dr. Sawyer for vapotherm 100% 40L
--- NOTE | 2023-07-09 14:25 | PC.NURSE ---
Called LAB to check on covid/flu swab. Nieves advised 7.5 minutes. RN notified.
--- NOTE | 2023-07-09 14:32 | PC.NURSE ---
vapotherm on pt at this time 40L at 100% per RT
--- NOTE | 2023-07-09 14:41 | PC.NURSE ---
Report called to GUILLE Crow on 2nd floor
--- NOTE | 2023-07-09 15:05 | PC.NURSE ---
pt admitted to 216 from ED, started diltiazem drip at 5mg/hr for afib with RVR
--- NOTE | 2023-07-09 15:10 | PC.NURSE ---
HR 160's, increased dilt drip to 10mg/hr
--- NOTE | 2023-07-09 15:19 | PC.NURSE ---
HR 160's, increased dilt drip to 15mg/hr
[2023-07-09 16:47] LABS: POC Glucose,Bedside 160 (70-110)
[2023-07-09 17:01] LABS: Troponin I < 0.01 ng/ml (0.00-0.034)
[2023-07-09 17:14] LABS: Reflex Lactic Add Lactic Reflex
[2023-07-09 18:00] LABS: Lactic Acid Follow Up (RFLX 1) 1.5 mmol/L (0.7-2.1)
--- NOTE | 2023-07-09 18:00 | PC.NURSE ---
notified MD Maria Esther christian that pt's HR still 160's even after being on maxed dilt drip for several hours and that pt has duo nebs ordered that increase HR, instructed this RN to stop duonebs and order xopenex and give one time dose of metoprolol 5mg IV for HR, will send pharmacy requisition and give meds per emar
[2023-07-09 20:09] LABS: POC Glucose,Bedside 159 (70-110)
[2023-07-09 20:38] LABS: Troponin I 0.01 ng/ml (0.00-0.034)
--- NOTE | 2023-07-09 21:00 | PC.NURSE ---
contacted luz r/t tachycardia.
--- NOTE | 2023-07-09 21:07 | PC.NURSE ---
lung sounds rhonchi bilaterally. nonpitting edema bilateral lower extremities. right breast excoriated, washed, dried, and applied nystatin. last bm 07/08. pt denies soa or cp. vapotherm 35L 80%. cardizem drip at 15mg/hr. IVP metoprolol 5mg administered @ 2108 for HR 140's -- post administration HR 115-130
--- NOTE | 2023-07-09 23:14 | PC.NURSE ---
pt got up to use the BSC - increased tachycardia 160-175's, SOA, weakness - daughter unhooked pulse ox and heart monitor leads so pt could get over on potty - educated daughter and pt that the leads need to stay connected at all times while on a cardiac drip, and pt can successful get on BSC while leads are connected - both verbalized understanding.
[2023-07-10] VITALS (23 sets, daily range): BP systolic 108–164; BP diastolic 58–93; PULSE 68–185; RESP 22–30; TEMP 36.5–38.1; O2SAT 88–97; BMI 52.7
--- NOTE | 2023-07-10 00:15 | PC.NURSE ---
contacted luz at 0005 r/t tachycardia 150-160's. new order for digoxin, see mar
--- NOTE | 2023-07-10 00:39 | PC.NURSE ---
Addendum entered by Alayna Arshad RN 07/10/23 06:48: no digoxin levels ordered at this time Original Note: digoxin administered per mar - pre, during, post heart rhythm strips printed and in chart. pt remains tachy in 140-150's
--- NOTE | 2023-07-10 01:38 | PC.NURSE ---
pt rang out, went to room, vapotherm was laying beside pt and sats were mid 80's. pt stated nasal irritation - educated pt to keep the vapotherm on r/t decreased sats. pt verbalized understandings. notified RT Will to see if there was any other interventions - unable to decrease flow r/t desating and LYLE dx. took pt a fan and pt is content.
--- NOTE | 2023-07-10 02:10 | PC.NURSE ---
increased HR of 170's so went to pt room to check, she was sitting up on side of bed stating she was trying to roll over. pulled pt up in bed and got her situated.
--- NOTE | 2023-07-10 02:53 | PC.NURSE ---
pt restless- tachy 180's trying to reposition in bed by self. educated pt to press call light so we can help her and decrease stress.
[2023-07-10 04:54] LABS: ABG Base Excess -4.4 mmol/L (-2.4-2.3); ABG HCO3 20.4 mmhg (22.0-26.0); ABG Oxygen Saturation 94 % (90-100); ABG PCO2 33.4 mmhg (35.0-45.0); ABG PO2 69.4 mmhg (80-100); ABG TCO2 21.4 mmhg (23-27)
[2023-07-10 04:57] LABS: Allen's Test Acceptable; Oxygen 80% %; Source Left Radial
--- NOTE | 2023-07-10 05:30 | PC.NURSE ---
0353 pt was tachy 170-190's, SOA, instructed to leave O2 on. Daughter wanting to know how long are we going to let her ride like this I explained to her that I have called the drafter directional survey (Luz) multiple times t/o the shift for new orders. 0410 contacted Luz - new order for ABG and metoprolol 5mg 429 daughter requesting pt be switched from [facility] to Hospitalist - informed her the pt has to make that choice r/t A&OX4 -- pt verbalized she wanted switched to the hospitalist - consults with Miller and was informed this could happen on dayshift. informed patient that could consult today about switching services. cardio consult ordered per luz. administered metoprolol and pt HR has remained 110-140 since administration Daughter has been at bedside all night and states her is an script manager and she wants her mom transferred to today. reported this to Luz.
[2023-07-10 06:12] LABS: POC Glucose,Bedside 164 (70-110)
[2023-07-10 06:46] LABS: Chloride 100 mmol/L (98-107); Sodium 128 mmol/L (136-145)
--- NOTE | 2023-07-10 06:46 | PC.NURSE ---
digoxin administered per nov - pre, during, post heart rhythm strips printed and in chart. pt remains tachy in 100-120's
[2023-07-10 06:47] LABS: Potassium 3.3 mmoL/L (3.5-5.1)
[2023-07-10 06:49] LABS: Anion Gap 8.3 mEq/L (5-15); Blood Urea Nitrogen 13 mg/dl (7-17); Carbon Dioxide 23 mmol/L (22.0-30.0); Creatinine Clearance Estimated 49 mL/min (50-200); Estimated Glomerular Filt Rate 99 ml/min (>60); GFR (African American) 120 ML/MIN (>60)
[2023-07-10 06:50] LABS: Calcium 8.3 mg/dl (8.4-10.2); Glucose 175 mg/dl (74-100)
[2023-07-10 07:07] LABS: Basophils # 0.1 K/mm3 (0-0.2); Basophils % 0.3 % (0.1-2.0); Eosinophils # 0.1 K/mm3 (0.0-0.4); Eosinophils % 0.5 % (0.1-12.0); Hematocrit 34.5 % (37.0-47.0); Lymphocytes # 0.7 K/mm3 (0.7-4.5); Lymphocytes % 3.3 % (10-50); Mean Corpuscular HGB Conc 33.4 g/dL (31.8-35.4); Mean Corpuscular Hemoglobin 29.5 pg (27.0-31.2); Mean Corpuscular Volume 88.4 fl (81-99); Mean Platelet Volume 8.2 fl (7.4-10.4); Monocytes # 1.2 K/mm3 (0.1-1.0); Monocytes % 5.5 % (1.7-9.3); Neutrophils # 19.6 K/mm3 (1.8-7.8); Neutrophils % 90.3 % (37.0-80.0); Platelet Count 284 K/mm3 (142-424); Red Cell Distribution Width 14.8 % (11.5-17.5)
[2023-07-10 07:24] LABS: MANUAL DIFFERENTIAL MANUAL DIFFERENTIAL (MANUAL DIFF)
[2023-07-10 07:49] LABS: Lymphocytes % 4 % (10-50); Monocytes % 12 % (2-9); Neutrophils % 73 % (42-76); Total Cells Counted 100
[2023-07-10 07:57] LABS: Macrocytosis 1+; Platelet Estimate Normal; RBC Morphology Normal
[2023-07-10 08:07] LABS: Hemoglobin 11.5 g/dL (12.2-16.2); White Blood Count 21.7 K/mm3 (4.8-10.8)
--- NOTE | 2023-07-10 08:07 | XR_ITS ---
FINAL REPORT CLINICAL HISTORY: Shortness of breath COMPARISON: 05/22/2019 FINDINGS: A single portable view of the chest was obtained. Cardiomegaly is noted. There is prominent ming likely representing enlarged central pulmonary arteries worrisome for pulmonary arterial hypertension. The mediastinum is within normal limits. New right base opacity is consistent with pneumonia. The bony thorax is intact. IMPRESSION: New right base opacity consistent with pneumonia. Findings worrisome for pulmonary arterial hypertension. If indicated, CT chest could further evaluate. Reviewed, Interpreted and Dictated by Liang Rausch III, MD Transcribed by Bella Cabrera Authenticated and . [facility]
--- NOTE | 2023-07-10 08:43 | EXP.HP ---
History of Present Illness *Admission Date: 07/09/23 *Reason for visit:: Shortness of breath and productive cough *History of present illness: Patient is a 68-year-old patient with history of hypertension, hyperlipidemia, asthma, Xiong's palsy, chronic atrial fibs who presented to [facility] yesterday complaining of fever as high as 103 body weakness and aches chills and shortness of breath. She states that she has been sick for 2 to 3 days prior to the arrival. Her she has had a progressive productive cough and describes some nausea but no vomiting or diarrhea. She did receive a prescription for Tamiflu from physician in [place]. This did not seem to help at all. With evaluation in the emergency room she was found to be clinically stable with a fever.In the emergency room white blood cell count was 15,300. She has several liters of fluid was started on a diltiazem drip after bolus as well as Zithromax and Rocephin. She was then admitted with a presumed pneumonia. To note patient flu and COVID test were both negative. Chest x-ray on admission showed bibasilar consolidation and right midlung ground glass infiltrate likely representing combination of pneumonia and atelectasis in #2 cardiomegaly with elevated central venous pressure Patient is on Vapotherm 35 L/min or 80% with O2 sats at 94%. She has had a fever with a temperature this a.m. 100.5. She had atrial fibs throughout the night which is chronic for her but with a rapid ventricular response around 150. She received a total of 750 mcg of digoxin and is on maximum diltiazem drip. She also received some metoprolol total of 10 mg IV. Daughter stayed with her throughout the night and states she is better since heart rate has decreased. Patient states she is still somewhat short of breath. She is able to assist with exam. She denies any chest pain. She does not want any breakfast. This a.m. on Vapotherm patient's pH is 7.40 PCO2 is 33.4 PO2 69.4 with a bicarb of 20.4 Also to note patient was recently treated for UTI and was initially on Levaquin after which she had severe leg discomfort and was unable to walk. She was then changed to a cephalosporin. She feels her UTI has resolved. PFSH PFSH Disclaimer: The information contained in this section may have been updated after the patient was seen, as this information can be updated by other users. Medical History (Updated 07/10/23 @ 09:07 by Jaqueline Palm APRN) A-fib Cholecystitis FH: cholecystectomy Hypertension Lymphedema Pulmonary nodules Umbilical hernia Family History (Updated 07/09/23 @ 15:43 by Mignon Isbell RN) Heart attack Cardiomyopathy Social History (Updated 07/09/23 @ 15:45 by Mignon Isbell RN) Smoking Status: Never smoker alcohol intake: current substance use type: denies use current occupational status: disabled Travel in the last 8 weeks: None caffeine: No Review of Systems Constitutional Constitutional: Reports body ache(s), Reports fatigue, Reports fever(s), Reports headache(s), Reports poor appetite, Reports lethargy and Reports weakness Eyes Eyes: Denies change in vision ENT Ears, Nose, Mouth, and Throat: Denies otalgia, Reports headache(s) and Reports sore throat *Cardiovascular Cardiovascular: Denies chest pain, Reports claudication, Reports diaphoresis, Reports dyspnea, Reports irregular heart rhythm, Reports leg edema and Reports rapid heart rate *Respiratory Respiratory: Reports change in phlegm color, Reports chest congestion, Reports cough, Reports dyspnea and Denies hemoptysis *Gastrointestinal Gastrointestinal: Reports heartburn, Denies hematemesis, Denies loose stools, Reports nausea and Denies vomiting *Genitourinary Genitourinary: Denies difficulty voiding *Musculoskeletal Musculoskeletal: Reports arthralgias, Reports muscle weakness and Reports myalgias *Neurologic Neurologic: Denies behavioral changes, Denies confusion, Reports headache(s) and Rep
--- NOTE | 2023-07-10 08:50 | CA_ITS ---
APPROVED REPORT EXAM: Comprehensive 2D, Doppler, and color-flow Echocardiogram Manager Wind: Rossana Nye RDCS Ht: 5 ft 6 in Wt: 328lbs BSA: 2.47 BP: 140/77 mmHg Indications: AV RVR,COPD HTN HLP TDS SECONDARY TO LABORED RESPIRATION 2D Dimensions LVOT 1.48 cm (M/F) 1.5-2.5 M-Mode Dimensions RVDd 3.01 cm (0.9-2.6) LA Diam 3.96 cm (1.9-4.0) LVDd 4.03 cm (3.5-5.7) Ao Diam 3.92 cm (2.0-3.7) LVDs 2.38 cm (3.5-5.7) IVSd 1.44 cm (0.6-1.1) PWd 1.36 cm (0.6-1.1) EF (Teich) 72.40% FS 40.90% EDV (Teich) 71.30 mL ESV (Teich) 19.70 mL Aortic Valve LVOT Max 116.00 (70-110 cm/s) LVOT VTI 14.91 cm AoV Peak Jose L. 156.00 (50-130 cm/s) AO Peak GR. 9.70 mmHg AO Mean GR. 4.70 (<5 mmHg) AO VTI 19.67 (18-25 cm) CA (VTI) 1.30 (2.5-4.5 cm2) Tricuspid Valve TR P. Velocity 322.00 cm/s RAP Estimate 10.00 mmHg RVSP 51.50 mmHg Left Ventricle The left ventricle is normal size. The left ventricular systolic function is normal. The left ventricular ejection fraction is within the normal range. There is increased LV wall thickness. There is normal LV segmental wall motion. Diastolic function is indeterminate. LVEF is 55%. Right Ventricle The right ventricle is mildly dilated. There is increased RV wall thickness. Moderator band is incidentally noted (normal finding). Atria The left atrium is normal in size. The right atrium size is normal. Aortic Valve The aortic valve is mildly thickened. There is no aortic valvular stenosis. Trace aortic regurgitation. Mitral Valve The mitral valve leaflets are mildly thickened. No evidence of mitral valve stenosis. Trace mitral regurgitation. Tricuspid Valve The tricuspid valve leaflets are thin and pliable. Mild tricuspid regurgitation. RVSP is 30 mmHg + RA pressure. Pulmonic Valve The pulmonary valve is normal in structure. Trace pulmonic regurgitation. Great Vessels The aortic root is normal in size. The ascending aorta is normal in size. The IVC is not well visualized. Pericardium Trivial pericardial effusion. Other Information Study Quality: Technically Difficult Conclusion This was a technically difficult study due to poor acoustic windows. Normal biventricular systolic function. Mildly dilated RV Mild TR. Elevated RVSP 38 mmHg + plus RA pressure. Electronically signed by : Radha Sales MD 07/10/2023 21:37:52
--- NOTE | 2023-07-10 09:52 | EXP.PULM.CON ---
History of Present Illness History of present illness: Ms. Farias is a 68-year-old male with reported hypertension dyslipidemia asthma on Breo Inhaler, Xiong's palsy and chronic A-fib presented to hospital with febrile illness along with worsening shortness of breath and productive phlegm. Denies any known sick contacts. [facility] Disclaimer: The information contained in this section may have been updated after the patient was seen, as this information can be updated by other users. Medical History (Updated 07/10/23 @ 11:02 by Lourdes Beverly MD) A-fib Acute respiratory failure with hypoxia Cholecystitis FH: cholecystectomy Hypertension Lymphedema Pulmonary nodules Umbilical hernia Family History (Updated 07/09/23 @ 15:43 by Mignon Isbell, GUILLE) Other Cardiomyopathy Heart attack Social History (Updated 07/09/23 @ 15:45 by Mignon Isbell, GUILLE) Smoking Status: Never smoker alcohol intake: current substance use type: denies use current occupational status: disabled Travel in the last 8 weeks: None caffeine: No Review of Systems Constitutional Constitutional: Reports fatigue, Reports headache(s) and Reports weakness Eyes Eyes: Denies eye discharge, Denies dry eyes, Denies irritation and Denies itchy eyes ENT Ears, Nose, Mouth, and Throat: Reports headache(s), Denies lip swelling and Denies throat swelling *Cardiovascular Cardiovascular: Reports dyspnea and Reports dyspnea on exertion *Respiratory Respiratory: Reports chest congestion, Reports cough, Reports dyspnea, Reports dyspnea on exertion, Reports excessive phlegm production and Reports wheezing *Gastrointestinal Gastrointestinal: Denies abdominal pain, Denies belching and Denies cramping *Musculoskeletal Musculoskeletal: Reports back pain, Reports myalgias and Reports other (No small joint swelling or Pain) *Neurologic Neurologic: Denies behavioral changes, Denies confusion, Reports headache(s) and Reports weakness Psychiatric Psychiatric: Denies behavioral changes and Denies confusion Endocrine Endocrine: Reports fatigue and Denies heat intolerance Hematologic/Lymphatic Hematologic/Lymphatic: Denies easy bleeding and Denies lymphadenopathy Allergic/Immunologic Allergic/Immunologic: Denies itchy eyes, Denies lip swelling, Denies throat swelling and Reports wheezing Pulmonology Exam Inpatient Vital signs and Labs for Last 24 Hours: Temp Pulse Resp BP Pulse Ox O2 Del Method O2 Flow Rate 100.5 F H 122 H 28 H 137/85 91 L Vapotherm 35 07/10/23 08:00 07/10/23 09:00 07/10/23 09:00 07/10/23 09:00 07/10/23 09:00 07/10/23 09:00 07/10/23 09:00 FiO2 80 07/10/23 09:00 Laboratory Results - last 24 hr 07/09/23 12:50: Urine Color Yellow, Urine Appearance Clear, Urine pH 6.0, Ur Specific [place] >= 1.030, Urine Protein 2+, Urine Glucose (UA) Negative, Urine Ketones Trace, Urine Blood Trace-i, Urine Nitrate Negative, Urine Bilirubin Negative, Urine Urobilinogen 2.0, Ur Leukocyte Esterase Negative, Urine RBC 3-5, Urine WBC 3-5, Ur Squamous Epith Cells 5-10, Urine Bacteria 1+, Urine Mucus 1+ 07/09/23 13:01: SARS-CoV-2 (PCR) Not detected, Influenza A Untype (PCR) Not detected, Influenza Type B (PCR) Not detected 07/09/23 13:10: WBC 15.3 H, RBC 3.40 L, Hgb 9.9 L, Hct 30.2 L, MCV 88.8, MCH 29.1, MCHC 32.7, RDW 15.0, Plt Count 245, MPV 7.9, Neut % (Auto) 91.8 H, Lymph % (Auto) 2.9 L, [place] % (Auto) 3.7, Eos % (Auto) 1.5, Baso % (Auto) 0.1, Neut # (Auto) 14.1 H, Lymph # (Auto) 0.5 L, [place] # (Auto) 0.6, Eos # (Auto) 0.2, Baso # (Auto) 0.0, Total Counted 100, Neutrophils % (Manual) 93 H, Lymphocytes % (Manual) 2 L, Monocytes % (Manual) 5, Platelet Estimate Normal, RBC Morphology Normal, Sodium 134 L, Potassium 3.7, Chloride 102, Carbon Dioxide 25, Anion Gap 10.7, BUN 12, Creatinine 0.60, Estimated Creat Clear 50, Estimated GFR 99, Est GFR ( Amer) 120, Glucose 212 H, Lactate 2.4 H, Calcium 8.7, Total Bilirubin 0.6, AST 30, ALT 29, Alkaline Phosphat
--- NOTE | 2023-07-10 10:03 | EXP.PHA.CONS ---
Pharmacy Consult Date: 07/10/23 Time: 10:03 Referring provider: JENNYFER CELESTIN APRN Reason for Consult:: VANCOMYCIN DOSING Allergies Allergy/AdvReac Type Severity Reaction Status Date / Time No Known Drug Allergies Allergy Verified 06/09/20 13:51 Home Medications Medication Instructions Recorded Confirmed Type aspirin 81 mg tablet,delayed 81 mg PO DAILY Heart Health 05/22/19 07/09/23 History release atorvastatin 20 mg tablet 20 mg PO HS Cholesterol 05/22/19 07/09/23 History fluticasone furoate 200 1 inh inhalation DAILY Breathing 06/05/20 07/09/23 History mcg-vilanterol 25 mcg/dose Problems inhalation powder (Breo Ellipta) fluticasone propionate 50 2 spray intranasal DAILY Allergy 06/05/20 07/09/23 History mcg/actuation nasal Symptoms spray,suspension furosemide 40 mg tablet 60 mg PO DAILY Fluid 06/05/20 07/09/23 History irbesartan 300 mg tablet 300 mg PO DAILY High Blood Pressure 06/09/20 07/09/23 History rivaroxaban 20 mg tablet 20 mg PO QPMWITHMEAL blood 06/09/20 07/09/23 History thinner/afib cyclobenzaprine 10 mg tablet 10 mg PO TIDP PRN Muscle Spasm 07/09/23 07/09/23 History diltiazem HCl 300 mg 300 mg PO DAILY Heart Rate 07/09/23 07/09/23 History capsule,extended release 24 hr doxazosin 2 mg tablet 2 mg PO DAILY High Blood Pressure 07/09/23 07/09/23 History dulaglutide 3 mg/0.5 mL 3 mg SQ WEEKLY Diabetes 07/09/23 07/09/23 History subcutaneous pen injector (Trulicity) metoprolol succinate 100 mg 100 mg PO DAILY High Blood Pressure 07/09/23 07/09/23 History tablet,extended release 24 hr oseltamivir 75 mg capsule 75 mg PO BID Infection 07/09/23 07/09/23 History New Prescriptions to Start Prescriptions: Height: 1.68 m Weight: 149 kg Laboratory Results:: Laboratory Results - last 24 hr 07/09/23 12:50: Urine Color Yellow, Urine Appearance Clear, Urine pH 6.0, Ur Specific [place] >= 1.030, Urine Protein 2+, Urine Glucose (UA) Negative, Urine Ketones Trace, Urine Blood Trace-i, Urine Nitrate Negative, Urine Bilirubin Negative, Urine Urobilinogen 2.0, Ur Leukocyte Esterase Negative, Urine RBC 3-5, Urine WBC 3-5, Ur Squamous Epith Cells 5-10, Urine Bacteria 1+, Urine Mucus 1+ 07/09/23 13:01: SARS-CoV-2 (PCR) Not detected, Influenza A Untype (PCR) Not detected, Influenza Type B (PCR) Not detected 07/09/23 13:10: WBC 15.3 H, RBC 3.40 L, Hgb 9.9 L, Hct 30.2 L, MCV 88.8, MCH 29.1, MCHC 32.7, RDW 15.0, Plt Count 245, MPV 7.9, Neut % (Auto) 91.8 H, Lymph % (Auto) 2.9 L, [place] % (Auto) 3.7, Eos % (Auto) 1.5, Baso % (Auto) 0.1, Neut # (Auto) 14.1 H, Lymph # (Auto) 0.5 L, [place] # (Auto) 0.6, Eos # (Auto) 0.2, Baso # (Auto) 0.0, Total Counted 100, Neutrophils % (Manual) 93 H, Lymphocytes % (Manual) 2 L, Monocytes % (Manual) 5, Platelet Estimate Normal, RBC Morphology Normal, Sodium 134 L, Potassium 3.7, Chloride 102, Carbon Dioxide 25, Anion Gap 10.7, BUN 12, Creatinine 0.60, Estimated Creat Clear 50, Estimated GFR 99, Est GFR ( Amer) 120, Glucose 212 H, Lactate 2.4 H, Calcium 8.7, Total Bilirubin 0.6, AST 30, ALT 29, Alkaline Phosphatase 162 H, Troponin I < 0.01, Total Protein 6.8, Albumin 3.5, Globulin 3.3 H, Albumin/Globulin Ratio 1.1, TSH 1.09, Thyroxine (T4) 7.5 07/09/23 16:25: Troponin I < 0.01 07/09/23 16:39: POC Glucose 160 H 07/09/23 17:37: Lactate 1.5 07/09/23 19:30: Troponin I 0.01 07/09/23 19:58: POC Glucose 159 H 07/10/23 04:34: Specimen Source Left radial, O2 % 80%, ABG pH 7.40, ABG pCO2 33.4 L, ABG pO2 69.4 L, ABG HCO3 20.4 L, ABG Total CO2 21.4 L, ABG O2 Saturation 94, ABG Base Excess -4.4 L, John Test Acceptable 07/10/23 06:00: WBC 21.7 H* D, RBC 3.90 L, Hgb 11.5 L D, Hct 34.5 L, MCV 88.4, MCH 29.5, MCHC 33.4, RDW 14.8, Plt Count 284, MPV 8.2, Neut % (Auto) 90.3 H, Lymph % (Auto) 3.3 L, [place] % (Auto) 5.5, Eos % (Auto) 0.5, Baso % (Auto) 0.3, Neut # (Auto) 19.6 H, Lymph # (Auto) 0.7, [place] # (Auto) 1.2 H, Eos # (Auto) 0.1, Baso # (Auto) 0.1, Total Counted 100, Neutrophils % (Manual) 73, Band Neut
--- NOTE | 2023-07-10 10:52 | EXP.CARD.CON ---
History of Present Illness History of Present Illness Consult date: 07/10/23 Requesting physician: Yumiko Ventura Consult reason: atrial fibrillation Chief complaint: fever, weakness, cough History of present illness: 68-year-old white female with past medical history hypertension, hyperlipidemia, obesity, A-fib on Xarelto, lymphedema, and oxygen dependent requiring 2 L nasal cannula at home presented to emergency department with complaints of generalized weakness, body aches, fever and productive cough x 2 to 3 days. Patient reports was prescribed Tamiflu over the phone by a [facility] physician which did not help at all. Upon presentation to emergency department patient was noted to be in A-fib RVR with a rate in the 160s without ST changes concerning for ischemia. Chest x-ray showed bibasilar consolidation and right mid-lung ground glass infiltrate likely representing combination of pneumonia and atelectasis along with cardiomegaly. Initial labs as follow: WBC 15.3, hemoglobin 9.9, sodium 134, potassium 3.7, BUN 12, creatinine 0.6, lactic 2.4, serial troponins negative. Flu and covid negative. Patient was started on diltiazem drip and admitted for sepsis, pneumonia and A-fib RVR. Patient remained tachycardic with a rate in the 150s over the evening requiring doses of Lopressor and digoxin to be given throughout the evening. Repeat chest x-ray this morning shows a new right base opacity consistent with pneumonia and findings worrisome for pulmonary arterial hypertension. White blood cell count increased to 21.7 this morning. Patient remains maxed out on diltiazem drip. Blood pressure remains stable. Daughter at bedside. [facility] Disclaimer: The information contained in this section may have been updated after the patient was seen, as this information can be updated by other users. Medical History (Updated 07/10/23 @ 11:05 by Virginia Wynn APRN) A-fib Acute respiratory failure with hypoxia Cholecystitis FH: cholecystectomy Hypertension Lymphedema Pulmonary nodules Umbilical hernia Family History (Updated 07/09/23 @ 15:43 by Mignon Isbell RN) Other Cardiomyopathy Heart attack Social History (Updated 07/09/23 @ 15:45 by Mignon Isbell RN) Smoking Status: Never smoker alcohol intake: current substance use type: denies use current occupational status: disabled Travel in the last 8 weeks: None caffeine: No Review of Systems Review of Systems Review of systems:: pertinent systems reviewed and negative unless documented below Constitutional Constitutional: Reports headache(s) and Reports weakness ENT Ears, Nose, Mouth, and Throat: Reports headache(s) *Respiratory Respiratory: Reports cough *Neurologic Neurologic: Denies behavioral changes, Denies confusion, Reports headache(s) and Reports weakness Psychiatric Psychiatric: Denies behavioral changes and Denies confusion Exam Data for Last 24 hours Vital signs and Labs for Last 24 Hours: Temp Pulse Resp BP Pulse Ox O2 Del Method O2 Flow Rate 100.5 F H 122 H 28 H 137/85 91 L Vapotherm 35 07/10/23 08:00 07/10/23 09:00 07/10/23 09:00 07/10/23 09:00 07/10/23 09:00 07/10/23 09:00 07/10/23 09:00 FiO2 80 07/10/23 09:00 Laboratory Results - last 24 hr 07/09/23 12:50: Urine Color Yellow, Urine Appearance Clear, Urine pH 6.0, Ur Specific [place] >= 1.030, Urine Protein 2+, Urine Glucose (UA) Negative, Urine Ketones Trace, Urine Blood Trace-i, Urine Nitrate Negative, Urine Bilirubin Negative, Urine Urobilinogen 2.0, Ur Leukocyte Esterase Negative, Urine RBC 3-5, Urine WBC 3-5, Ur Squamous Epith Cells 5-10, Urine Bacteria 1+, Urine Mucus 1+ 07/09/23 13:01: SARS-CoV-2 (PCR) Not detected, Influenza A Untype (PCR) Not detected, Influenza Type B (PCR) Not detected 07/09/23 13:10: WBC 15.3 H, RBC 3.40 L, Hgb 9.9 L, Hct 30.2 L, MCV 88.8, MCH 29.1, MCHC 32.7, RDW 15.0, Plt Count 245, MPV 7.9, Neut % (Auto) 91.8 H, Lymph % (Auto) 2.9 L, Mo
[2023-07-10 11:16] LABS: POC Glucose,Bedside 162 (70-110)
--- NOTE | 2023-07-10 11:22 | PC.NURSE ---
RESP CARE NOTE: Pt SpO2 at 91% on 30L/70% vapotherm. We will continue to monitor patient and wean oxygen accordingly.
[2023-07-10 16:52] LABS: POC Glucose,Bedside 142 (70-110)
--- NOTE | 2023-07-10 17:07 | PC.NURSE ---
PT IS RESTING IN BED WITH FAMILY AT BEDSIDE. ALERT AND ORIENTED X4. AFIB ON THE MONITOR. CARDIZEM DRIP TITRATED TO 10 MG/HR @ 1520. HR HAS MAINTAINED 80-95. O2 SATURATION 90-95% ON VAPOTHERM 30 L 70% FIO2. LUNG SOUNDS DIMINISHED WITH SCATTERED RHONCHI AND CRACKLES (BASES). EDEMA NOTED TO BLE. WILL CONTINUE TO MONITOR.
--- NOTE | 2023-07-10 19:12 | PC.NURSE ---
HR HAS MAINTAINED 68-80. DRIP TITRATED 5MG/HR.
--- NOTE | 2023-07-10 19:41 | EXP.ACUTE.PN ---
Subjective *Date: 07/10/23 *Time: 19:41 Interval history: Better this evening. More alert. Speaking better. Productive cough. BP normal. A-fib with HR 80. Sat=90% on VapoTherm. Diltiazem drip has been decreased and she has received p.o. Diltiazem. Medical Exam Vital signs and Labs for Last 24 Hours: Vital Signs Temp Pulse Pulse Resp BP Pulse Ox O2 Del Method 07/10/23 18:34 Vapotherm 07/10/23 18:00 92 H 22 135/70 93 L Vapotherm 07/10/23 17:48 68 07/10/23 17:48 80 07/10/23 17:48 89 L Vapotherm 07/10/23 17:00 Vapotherm 07/10/23 16:00 95 H 07/10/23 16:00 Vapotherm 07/10/23 16:00 97 H 24 138/90 94 L Vapotherm 07/10/23 15:00 Vapotherm 07/10/23 12:00 130 H 07/10/23 13:59 111 H 24 120/58 L 92 L Vapotherm 07/10/23 13:00 Vapotherm 07/10/23 12:00 121 H 30 H 153/88 H 94 L Vapotherm 07/10/23 11:38 144 H 07/10/23 11:35 112 H 07/10/23 11:35 122 H 07/10/23 11:35 91 L Vapotherm 07/10/23 11:18 98.3 F 07/10/23 11:00 Room Air 07/10/23 10:00 140 H 28 H 164/80 H 93 L Vapotherm 07/10/23 09:00 122 H 28 H 137/85 91 L Vapotherm 07/10/23 08:00 120 H 07/10/23 08:38 Vapotherm 07/10/23 08:00 117 H Vapotherm 07/10/23 08:00 100.5 F H 116 H 28 H 140/77 94 L Vapotherm 07/10/23 07:37 100.5 F H 07/10/23 05:30 113 H 07/10/23 05:30 120 H 07/10/23 05:30 96 Vapotherm 07/10/23 06:50 116 H 25 H 114/83 96 Vapotherm 07/10/23 06:36 122 H 07/10/23 06:19 Vapotherm 07/10/23 06:00 98.4 F 115 H 25 H 108/68 L 97 Vapotherm 07/10/23 04:00 150 H 07/10/23 00:00 160 H 07/10/23 05:00 Vapotherm 07/10/23 04:00 170 H 90 L Vapotherm 07/10/23 04:00 147 H 24 135/85 88 L Vapotherm 07/10/23 02:50 185 H 07/10/23 02:37 Vapotherm 07/10/23 02:00 156 H 27 H 157/63 H 94 L Vapotherm 07/10/23 01:00 Vapotherm 07/10/23 00:29 159 H 07/10/23 00:00 99.0 F 168 H 27 H 151/93 H 92 L Vapotherm 07/09/23 23:00 Vapotherm 07/09/23 23:28 Vapotherm 07/09/23 23:28 122 H 07/09/23 23:28 123 H 07/09/23 20:00 130 H 07/09/23 22:00 135 H 28 H 148/73 H 97 Vapotherm 07/09/23 21:00 Vapotherm 07/09/23 20:18 99.2 F 131 H 30 H 137/86 92 L Vapotherm O2 Flow Rate FiO2 07/10/23 18:34 30 07/10/23 18:00 30 70 07/10/23 17:48 07/10/23 17:48 07/10/23 17:48 30 70 07/10/23 17:00 30 07/10/23 16:00 07/10/23 16:00 30 70 07/10/23 16:00 30 70 07/10/23 15:00 30 07/10/23 12:00 07/10/23 13:59 07/10/23 13:00 07/10/23 12:00 30 70 07/10/23 11:38 07/10/23 11:35 07/10/23 11:35 07/10/23 11:35 30 70 07/10/23 11:18 07/10/23 11:00 07/10/23 10:00 35 80 07/10/23 09:00 35 80 07/10/23 08:00 07/10/23 08:38 35 07/10/23 08:00 07/10/23 08:00 35 80 07/10/23 07:37 07/10/23 05:30 07/10/23 05:30 07/10/23 05:30 35 80 07/10/23 06:50 35 80 07/10/23 06:36 07/10/23 06:19 35 07/10/23 06:00 35 80 07/10/23 04:00 07/10/23 00:00 07/10/23 05:00 35 07/10/23 04:00 35 80 07/10/23 04:00 35 80 07/10/23 02:50 07/10/23 02:37 35 07/10/23 02:00 35 80 07/10/23 01:00 35 07/10/23 00:29 07/10/23 00:00 35 80 07/09/23 23:00 35 07/09/23 23:28 35 80 07/09/23 23:28 07/09/23 23:28 07/09/23 20:00 07/09/23 22:00 35 80 07/09/23 21:00 07/09/23 20:18 35 80 Intake and Output 07/10/23 07/10/23 07/10/23 03:59 11:59 19:59 Intake Total 539.667 / 1055.667 276 / 5238.774 9122.75 / 1132.75 Output Total 0 / 100 100 / 100 800 / 800 Balance 539.667 / 955.667 176 / 955.667 332.75 / 332.75 Intake: Intake, Oral Amount 340 / 780 200 / 780 360 / 360 Intake, Other Amount 20 / 20 Intake, Total IV Amount 179.667 / 255.
[2023-07-10 20:31] LABS: POC Glucose,Bedside 143 (70-110)
--- NOTE | 2023-07-10 21:25 | PC.NURSE ---
Addendum entered by Deepthi Rubio RN 07/11/23 04:49: Patient has been able to rest through the night tonight. Family member stated last night was a better night. Patient has remained off the cardizem drip since 2054. Hr has been in controlled Afib from 70-80s. Patient does have a productive cough of brownish sputum, suction was set up to help the patient with getting the sputum out. Patient remains on the purewick due to being extremely SOB with movement. has had 500 out and 2 incontinent voids due to the purewick not working properly. O2 has been between 93-95 throughout the night. No other issues noted by patient or by family in the room. Addendum entered by Deepthi Rubio RN 07/11/23 03:50: Patient wanted to lay on side, patient immediately dropped into the 70s, patient was rolled back to her back and pulled up in bed. Patient jigna to the high 80s. Vapotherm was increased to 30L with 90%. Patient is currently sating 93%. Addendum entered by Deepthi Rubio RN 07/11/23 00:24: temp of 96.6 auxiliary. warm blankets were applied. Will recheck in an hour. Original Note: Dilt drip turned off at 2054. HR 68, BP 124/66
[2023-07-11] VITALS (19 sets, daily range): BP systolic 105–156; BP diastolic 56–88; PULSE 56–118; RESP 18–30; TEMP 35.9–36.9; O2SAT 90–98; BMI 53.1
[2023-07-11 05:45] LABS: POC Glucose,Bedside 146 (70-110)
--- NOTE | 2023-07-11 08:03 | EXP.ACUTE.PN ---
Subjective *Date: 07/11/23 *Time: 08:03 Interval history: Patient's biggest complaint today is that she is unable to sleep. Daughter has stayed through the night and stated that she has not slept in 4 days. She usually takes Tylenol PM which helps her at home. She had trazodone last night which did not help at all. She feels she is breathing about the same still and is still short of breath. She has a cough which is sometimes productive. She has some abdominal discomfort with her ventral hernia. She has eaten a few bites throughout the day. She has not been out of bed. Her daughter states she is a little confused at times. She complains of hoarseness. She has a pure wick and p place and voids QS. Per nursing: When turning on her side she desats. They were unable to obtain blood for labs this morning and are placing a line at present. Heart rate has been stable off cardio exam drip she remains in atrial fibs. Medical Exam Vital signs and Labs for Last 24 Hours: Vital Signs Temp Pulse Pulse Resp BP Pulse Ox O2 Del Method 07/11/23 04:00 80 07/11/23 05:43 71 07/11/23 05:43 74 07/11/23 04:00 97.7 F 75 23 141/86 H Vapotherm 07/11/23 06:55 Vapotherm 07/11/23 06:00 68 24 105/87 L 90 L Vapotherm 07/11/23 05:00 Vapotherm 07/11/23 04:00 Vapotherm 07/11/23 03:00 Vapotherm 07/11/23 02:00 74 18 134/76 98 Vapotherm 07/11/23 01:00 Vapotherm 07/11/23 00:59 96.9 F L 07/11/23 00:00 70 07/11/23 00:06 75 07/11/23 00:06 75 07/11/23 00:00 96.6 F L 88 24 121/79 94 L Vapotherm 07/10/23 23:00 Vapotherm 07/10/23 22:00 76 24 135/79 93 L Vapotherm 07/10/23 20:00 70 07/10/23 21:00 Vapotherm 07/10/23 20:00 97.7 F 74 25 H 116/69 92 L Vapotherm 07/10/23 20:00 Vapotherm 07/10/23 18:34 Vapotherm 07/10/23 18:00 92 H 22 135/70 93 L Vapotherm 07/10/23 17:48 68 07/10/23 17:48 80 07/10/23 17:48 89 L Vapotherm 07/10/23 17:00 Vapotherm 07/10/23 16:00 95 H 07/10/23 16:00 Vapotherm 07/10/23 16:00 97 H 24 138/90 94 L Vapotherm 07/10/23 15:00 Vapotherm 07/10/23 12:00 130 H 07/10/23 13:59 111 H 24 120/58 L 92 L Vapotherm 07/10/23 13:00 Vapotherm 07/10/23 12:00 121 H 30 H 153/88 H 94 L Vapotherm 07/10/23 11:38 144 H 07/10/23 11:35 112 H 07/10/23 11:35 122 H 07/10/23 11:35 91 L Vapotherm 07/10/23 11:18 98.3 F 07/10/23 11:00 Room Air 07/10/23 10:00 140 H 28 H 164/80 H 93 L Vapotherm 07/10/23 09:00 122 H 28 H 137/85 91 L Vapotherm 07/10/23 08:38 Vapotherm O2 Flow Rate FiO2 07/11/23 04:00 07/11/23 05:43 07/11/23 05:43 07/11/23 04:00 30 90 07/11/23 06:55 30 07/11/23 06:00 30 90 07/11/23 05:00 30 07/11/23 04:00 30 90 07/11/23 03:00 30 07/11/23 02:00 30 07/11/23 01:00 30 07/11/23 00:59 07/11/23 00:00 07/11/23 00:06 07/11/23 00:06 07/11/23 00:00 30 07/10/23 23:00 30 07/10/23 22:00 30 07/10/23 20:00 07/10/23 21:00 30 07/10/23 20:00 30 07/10/23 20:00 30 07/10/23 18:34 30 07/10/23 18:00 30 70 07/10/23 17:48 07/10/23 17:48 07/10/23 17:48 30 70 07/10/23 17:00 30 07/10/23 16:00 07/10/23 16:00 30 70 07/10/23 16:00 30 70 07/10/23 15:00 30 07/10/23 12:00 07/10/23 13:59 07/10/23 13:00 07/10/23 12:00 30 70 07/10/23 11:38 07/10/23 11:35 07/10/23 11:35 07/10/23 11:35 30 70 07/10/23 11:18 07/10/23 11:00 07/10/23 10:00 35 80 07/10/23 09:00 35 80 07/10/23 08:38 35 Intake and Output 07/10/23 07/11/23 07/11/23 19:59 03:59 11:59 Intake Total 1132.75 / 1132.75 200 / 1332.75 240 / 1572.75 Output Total 800 / 800 400 / 1200 Balance 332.75 / 332.75 -200 / 132.75 240 / 372.75 Intake: Intake, Oral [place]
[2023-07-11 08:23] LABS: MANUAL DIFFERENTIAL MANUAL DIFFERENTIAL (MANUAL DIFF)
[2023-07-11 08:43] LABS: Anion Gap 11.1 mEq/L (5-15); Blood Urea Nitrogen 22 mg/dl (7-17); Carbon Dioxide 28 mmol/L (22.0-30.0); Chloride 97 mmol/L (98-107); Creatinine Clearance Estimated 49 mL/min (50-200); Estimated Glomerular Filt Rate 83 ml/min (>60); GFR (African American) 100 ML/MIN (>60); Glucose 179 mg/dl (74-100); Potassium 4.1 mmoL/L (3.5-5.1); Sodium 132 mmol/L (136-145)
[2023-07-11 08:44] LABS: Basophils % 0.2 % (0.1-2.0); Eosinophils # 0.2 K/mm3 (0.0-0.4); Eosinophils % 0.8 % (0.1-12.0); Hematocrit 36.8 % (37.0-47.0); Hemoglobin 11.9 g/dL (12.2-16.2); Lymphocytes # 0.6 K/mm3 (0.7-4.5); Mean Corpuscular HGB Conc 32.4 g/dL (31.8-35.4); Mean Corpuscular Hemoglobin 29.2 pg (27.0-31.2); Mean Corpuscular Volume 90.2 fl (81-99); Mean Platelet Volume 8.1 fl (7.4-10.4); Monocytes # 0.8 K/mm3 (0.1-1.0); Monocytes % 3.7 % (1.7-9.3); Neutrophils # 19.6 K/mm3 (1.8-7.8); Neutrophils % 92.3 % (37.0-80.0); Platelet Count 292 K/mm3 (142-424); Red Blood Count 4.08 M/mm3 (4.20-5.40); Red Cell Distribution Width 14.7 % (11.5-17.5)
[2023-07-11 08:51] LABS: White Blood Count 21.2 K/mm3 (4.8-10.8)
[2023-07-11 09:07] LABS: Lymphocytes % 3 % (10-50); Monocytes % 6 % (2-9); Neutrophils % 88 % (42-76); Total Cells Counted 100
[2023-07-11 09:08] LABS: Anisocytosis 2+; Hypochromasia 2+; Platelet Estimate Normal
--- NOTE | 2023-07-11 09:16 | EXP.CARD.PN ---
Subjective Subjective Date: 07/11/23 Time: 08:00 Principal diagnosis: Right sided pneumonia, sepsis, afib rvr Interval history: Patient remains in A-fib but rate is currently controlled. Patient is off of diltiazem drip and heart rate is 79. Morning labs reviewed. Patient remains on Vapotherm with sats at 93%. Exam Data for Last 24 hours Vital signs and Labs for Last 24 Hours: Temp Pulse Resp BP Pulse Ox O2 Del Method O2 Flow Rate 98.4 F 79 18 117/75 93 L Vapotherm 30 07/11/23 08:00 07/11/23 08:00 07/11/23 08:00 07/11/23 08:00 07/11/23 08:00 07/11/23 08:00 07/11/23 08:00 FiO2 90 07/11/23 08:00 Laboratory Results - last 24 hr 07/10/23 11:04: POC Glucose 162 H 07/10/23 16:39: POC Glucose 142 H 07/10/23 19:57: POC Glucose 143 H 07/11/23 05:38: POC Glucose 146 H 07/11/23 08:16: WBC 21.2 H*, RBC 4.08 L, Hgb 11.9 L, Hct 36.8 L, MCV 90.2, MCH 29.2, MCHC 32.4, RDW 14.7, Plt Count 292, MPV 8.1, Neut % (Auto) 92.3 H, Lymph % (Auto) 3.0 L, [place] % (Auto) 3.7, Eos % (Auto) 0.8, Baso % (Auto) 0.2, Neut # (Auto) 19.6 H, Lymph # (Auto) 0.6 L, [place] # (Auto) 0.8, Eos # (Auto) 0.2, Baso # (Auto) 0.0, Total Counted 100, Neutrophils % (Manual) 88 H, Band Neutrophils % 3.0, Lymphocytes % (Manual) 3 L, Monocytes % (Manual) 6, Platelet Estimate Normal, Hypochromasia 2+, Anisocytosis 2+, Sodium 132 L, Potassium 4.1 D, Chloride 97 L, Carbon Dioxide 28, Anion Gap 11.1, BUN 22 H D, Creatinine 0.70, Estimated Creat Clear 49, Estimated GFR 83, Est GFR ( Amer) 100, Glucose 179 H, Calcium 9.0 I & O for Last 24 hours: Intake & Output 07/08/23 07/09/23 07/10/23 07/11/23 23:59 23:59 23:59 23:59 Intake Total 705.75 / 745.75 1482.667 / 1682.667 440 / 440 Output Total 0 / 0 1300 / 1300 0 / 0 Balance 705.75 / 745.75 182.667 / 382.667 440 / 440 Weight 328 lb 7.82 oz 328 lb 7.82 oz 330 lb 14.4 oz Constitutional Constitutional: no acute distress *Routine Respiratory Exam Respiratory: Present wheezes and symmetric chest movement *Routine Cardiovascular Exam Cardiovascular: Present Normal S1, Normal S2, irregular rhythm and irregularly irregular Comments: A-fib noted *Routine Abdominal Exam Abdominal: Present soft and normoactive bowel sounds; Absent tenderness *Routine Extremities Exam Extremities: Present edema, full ROM and normal capillary refill *Routine Skin Exam Skin: Present intact, dry and warm Detailed Neck Exam: Thyroids Thyroid: Absent bruit Progress Note: A&P Assessment and plan (1) Acute respiratory failure with hypoxia: Status: Acute (2) Pneumonia: Status: Acute (3) Atrial fibrillation: Status: Chronic (4) Respiratory distress, acute: Status: Acute (5) Morbid obesity: Status: Chronic (6) Acute sepsis: Status: Acute (7) Insomnia: Status: Acute (8) Pulmonary hypertension: Status: Acute (9) Hypokalemia: Status: Acute Assessment and Plan Assessment and Plan for All Diagnoses:: A-fib RVR [id number] score 3 -Hx of chronic A-fib on xarelto 20mg daily -Currently A-fib RVR -Echo 06/2023-normal biventricular systolic function, mildly dilated RV, mild TR, elevated RVSP 38mmHg + RA pressure -A-fib is likely exacerbated by underlying pneumonia and sepsis -Dilt drip is currently turned off and patient is rate controlled. Remains in A-fib. Continue Diltizem 240mg po daily and metoprolol succinate 100mg BID for rate control. Continue Xarelto 20 mg daily. Dilated RV Mild TR Elevated RVSP -Continue home dose of Lasix 60 mg p.o. daily. Add Jardiance 10 mg p.o. daily. Hypertension -Continue irbesartan, metoprolol and Lasix HLD -Goal LDL < 100, continue statin Acute hypoxic respiratory failure Concern for pulmonary artery hypertension Right-sided pneumonia -Right lower lobe pneumonia present on chest xray. Prominent ming likely representing enlarged central pulmonary arteries worrisome for pulmonary arterial hypertension. Recommend ct
--- NOTE | 2023-07-11 09:52 | EXP.PULM.PN ---
Subjective *Date: 07/11/23 *Time: 15:31 Interval history: Patient admits worsening respiratory distress since yesterday. Pulmonology Exam Inpatient Vital signs and Labs for Last 24 Hours: Temp Pulse Resp BP Pulse Ox O2 Del Method O2 Flow Rate 98.4 F 79 18 117/75 93 L Vapotherm 30 07/11/23 08:00 07/11/23 08:00 07/11/23 08:00 07/11/23 08:00 07/11/23 08:00 07/11/23 09:00 07/11/23 08:00 FiO2 90 07/11/23 08:00 Laboratory Results - last 24 hr 07/10/23 11:04: POC Glucose 162 H 07/10/23 16:39: POC Glucose 142 H 07/10/23 19:57: POC Glucose 143 H 07/11/23 05:38: POC Glucose 146 H 07/11/23 08:16: WBC 21.2 H*, RBC 4.08 L, Hgb 11.9 L, Hct 36.8 L, MCV 90.2, MCH 29.2, MCHC 32.4, RDW 14.7, Plt Count 292, MPV 8.1, Neut % (Auto) 92.3 H, Lymph % (Auto) 3.0 L, [place] % (Auto) 3.7, Eos % (Auto) 0.8, Baso % (Auto) 0.2, Neut # (Auto) 19.6 H, Lymph # (Auto) 0.6 L, [place] # (Auto) 0.8, Eos # (Auto) 0.2, Baso # (Auto) 0.0, Total Counted 100, Neutrophils % (Manual) 88 H, Band Neutrophils % 3.0, Lymphocytes % (Manual) 3 L, Monocytes % (Manual) 6, Platelet Estimate Normal, Hypochromasia 2+, Anisocytosis 2+, Sodium 132 L, Potassium 4.1 D, Chloride 97 L, Carbon Dioxide 28, Anion Gap 11.1, BUN 22 H D, Creatinine 0.70, Estimated Creat Clear 49, Estimated GFR 83, Est GFR ( Amer) 100, Glucose 179 H, Calcium 9.0 I & O for Labs for Last 24 Hours: Intake & Output 10/21/23 10/22/23 10/23/23 10/24/23 23:59 23:59 23:59 23:59 Intake Total 705.75 / 745.75 1482.667 / 1682.667 440 / 440 Output Total 0 / 0 1300 / 1300 0 / 0 Balance 705.75 / 745.75 182.667 / 382.667 440 / 440 Weight 328 lb 7.82 oz 328 lb 7.82 oz 330 lb 14.4 oz Constitutional: Present severe distress Head: Present normocephalic and atraumatic ENT: Present normal exam, normal oropharynx and mucous membranes moist Neck: Present normal inspection and full ROM Respiratory: Present prolonged expiratory phase, respiratory distress, wheezes and diminished air movement; Absent normal respiratory effort or able to speak in complete sentences Cardiac: Present S1/S2, Tachycardia and radial pulses present GI: Present soft and distention; Absent tenderness or guarding Rectal (female): Present deferred (female): Present deferred Skin: Present intact; Absent cyanosis or jaundice Neuro: Present alert, awake and oriented x 3 Extremities: Present normal inspection; Absent clubbing or cyanosis Psychiatric: Present normal affect and cooperative Assessment and Plan *Assessment and plan (1) Acute respiratory failure with hypoxia: Status: Acute Category: Medical Code(s): J96.01 - Acute respiratory failure with hypoxia (2) Pneumonia: Status: Acute Qualifiers: Laterality: right Lung location: lower lobe of lung Pneumonia type: due to unspecified organism Qualified Code(s): J18.9 - Pneumonia, unspecified organism Category: Medical Code(s): J18.9 - Pneumonia, unspecified organism Plan Ms. Farias is a 68-year-old male with reported hypertension dyslipidemia asthma on Breo Inhaler, Xiong's palsy and chronic A-fib presented to hospital with febrile illness along with worsening shortness of breath and productive phlegm. Denies any known sick contacts. COVID-19 and flu PCR negative. Chest x-ray on admission dense right middle lobe and lower lobe consolidative changes. Febrile on admission. Neutrophilic leukocytosis. Hemodynamically stable. Interval update: Leukocytosis at 21.2. No significant improvement from yesterday. Worsening respiratory distress and increasing oxygen appointments, escalated 90% FiO2. Wheezing worsened from yesterday. Chest x-ray worsening right lower lobe airspace disease. Plan: -Incentive spirometry and flutter valve -Change antibiotics to vancomycin and cefepime along with azithromycin. Follow-up with sputum cultures. -Continue high flow nasal oxygen supplementation to maintain sat: 90%, currently on 30 L 90% FiO2 -Trang
--- NOTE | 2023-07-11 09:54 | XR_ITS ---
FINAL REPORT CLINICAL HISTORY: Hypoxia COMPARISON: 07/10/2023 FINDINGS: SINGLE-VIEW CHEST There is cardiomegaly. The aorta is tortuous. The mediastinum is normal. There are worsening bibasilar opacities consistent with worsening pneumonia or atelectasis. There is no pneumothorax. IMPRESSION: Worsening pneumonia or atelectasis. Reviewed, Interpreted and Dictated by Liang Rausch III, MD Transcribed by Jaqueline Galvin Authenticated and [facility]
[2023-07-11 11:22] LABS: Adenovirus,PCR Not Detected (NotDetected); Coronavirus 19, PCR Not Detected (NotDetected); Coronavirus 229E Not Detected (NotDetected); Coronavirus NL63 Not Detected (NotDetected); Coronavirus OC43 Not Detected (NotDetected); Coronovirus HKU1,PCR Not Detected (NotDetected); Human Metapneumovirus Not Detected (NotDetected); Influenza A, PCR Not Detected (NotDetected); Influenza AH1, 2009 Not Detected (NotDetected); Influenza AH1, PCR Not Detected (NotDetected); Influenza AH3,PCR Not Detected (NotDetected); Influenza B, PCR Not Detected (NotDetected); Parainfluenza 1, PCR Not Detected (NotDetected); Parainfluenza 2, PCR Not Detected (NotDetected); Parainfluenza 3, PCR Not Detected (NotDetected); Parainfluenza 4, PCR Not Detected (NotDetected); Rhinovirus/Enterovirus Not Detected (NotDetected)
[2023-07-11 11:52] LABS: POC Glucose,Bedside 150 (70-110)
[2023-07-11 14:05] LABS: Respiratory Syncytial Virus Detected (NotDetected)
[2023-07-11 17:37] LABS: POC Glucose,Bedside 198 (70-110)
--- NOTE | 2023-07-11 18:23 | PC.NURSE ---
Pt is A&O x3 with periods of confusion. Remains on Vapotherm 30L 90%. Has ambulated with 2 assist x2 to the chair and remained up to chair for 6 hrs. She has been using her incentive spirometer. Education provided. Has c/o a headache this shift. Medicated per nov. Call light within reach. Family remains at bedside.
[2023-07-11 20:01] LABS: POC Glucose,Bedside 129 (70-110)
[2023-07-11 20:51] LABS: ABG Base Excess -0.4 mmol/L (-2.4-2.3); ABG HCO3 25.7 mmhg (22.0-26.0); ABG Oxygen Saturation 90 % (90-100); ABG PH 7.32 mmol/L (7.35-7.45); ABG TCO2 27.3 mmhg (23-27)
[2023-07-11 20:52] LABS: Allen's Test Acceptable; Source Right Radial
[2023-07-11 20:55] LABS: ABG PCO2 51.2 mmhg (35.0-45.0)
--- NOTE | 2023-07-11 21:38 | PC.NURSE ---
ABG obtained on patient. Increased confusion, and becoming combative, yelling profanities which according to family who is at bedside is unlike patient. RT spoke with Dr. Metzger about abg result and comparison with yesterdays results, and decision made to place patient on bipap per Dr. Metzger. Patient did not tolerate RT trying to place bipap, and began pulling mask off, and biting at tubing. She became combative, and digging nails into staff trying to assist with care. Decision made to remove Bipap, and replace with hiflow O2. Patient continuing to try and get out of bed, ripping off O2 sensor, and pulling at lines and leads. Phone call placed to Dr. Nagy. New orders for Ativan 0.5mg q6 PRN for agitation. Sister at beside trying to console patient at present.
[2023-07-12] VITALS: BP 122/71; PULSE 98; RESP 35; TEMP 36.9; O2SAT 97
--- NOTE | 2023-07-12 | PC.NURSE ---
Dr. Nagy contacted about patient agitation and restlessness. Described patient orientation as not cooperative, hallucinating, keeps eyes closed when spoke to, will not acknowledge voice when asked questions, and reaching for objects in midair. At this time, patient will not respond verbally to any questions asked. Dr. Nagy gives new order for Morphine 2mg IV one time dose for patient agitation and states that if patient AMS does not improve within and hour to page anesthesia for intubation of patient. This nurse repeated new orders back to physician with confirmation.
--- NOTE | 2023-07-12 00:47 | PC.NURSE ---
Spoke with Dr. Nagy related to patient decline. He states to call rapid red for immediate patient intubation. Alfonso Lemos RN by this RN at time of phone call, and Alfonso Lemos RN initiated Rapid Red. RSI med drawn and scanned into patient MAR. Dr Marrufo at bedside from ED to intubate. Patient successfully intubated at 0058 with CO2 end tital color metric with positive color change. Bilateral lungs sounds noted. 7.5 ETT @23 at the lip. OG placed at 55cm. Xray confirmation with successful placement. Montero placed, and UA obtained from tubing.
--- NOTE | 2023-07-12 01:01 | XR_ITS ---
PROCEDURE INFORMATION: Exam: XR Chest Exam date and time: 07/12/2023 1:16 AM Age: 68 years old Clinical indication: Device placement; Other: Ett and og; Additional info: Verify ett and og TECHNIQUE: Imaging protocol: Radiologic exam of the chest. Views: 1 view. COMPARISON: CR XR CHEST PORTABLE 07/11/2023 10:09 AM FINDINGS: Tubes, catheters and devices: Endotracheal tube tip terminating 4.4 cm above the justyn. Subdiaphragmatic course of an enteric tube with tip overlying the expected stomach. Lungs: Unchanged multifocal opacities. Pleural spaces: No pleural effusion. No pneumothorax. Heart/Mediastinum: Cardiomegaly. Bones/joints: Unremarkable. IMPRESSION: 1. Appropriately positioned endotracheal and enteric tubes. 2. Unchanged multifocal opacities.
[2023-07-12 01:27] VITALS: BP 78/40; BP 86/50; TEMP 37.1
[2023-07-12 01:28] VITALS: RESP 18; O2SAT 100
--- NOTE | 2023-07-12 01:34 | PC.NURSE ---
This RN at bedside with family. Tasha, daughter wishes for patient to be transferred to . Informed that I would speak with Dr. Nagy and relay family wishes.
--- NOTE | 2023-07-12 01:43 | PC.NURSE ---
Spoke with Dr. Nagy. He requests that Dr. Ventura handle patient transfer request in AM, and new orders for 500ml bolus NS, and start NS @100ml/hr for pressure support.
--- NOTE | 2023-07-12 01:56 | PC.NURSE ---
Family requests Dr. Nagy to be called back and adamant on starting transfer process KIMBERLEE. Dr Nagy paged.
[2023-07-12 02:00] VITALS: BP 102/67; PULSE 95; RESP 22; TEMP 37.1; O2SAT 100
[2023-07-12 02:22] LABS: Microscopic, Urine URINE MICROSCOPIC (MICROSCOPIC)
[2023-07-12 02:28] LABS: Appearance,Urine CLEAR (Clear); Bilirubin,Urine Negative (Negative); Blood, Urine Negative (Negative); Color,Urine YELLOW (Yellow); Glucose,Urine (UA) 2+ (Negative); Ketones,Urine Negative (Negative); Leukocyte Esterase,Urine Negative (Negative); Nitrate,Urine Negative (Negative); Protein,Urine TRACE (Negative); Specific Gravity, Urine 1.015 (1.005-1.030); Urobilinogen,Urine 0.2 EU/dl (0.2)
[2023-07-12 02:38] LABS: ABG Base Excess -1.3 mmol/L (-2.4-2.3); ABG HCO3 24.6 mmhg (22.0-26.0); ABG Oxygen Saturation 100 % (90-100); ABG PCO2 47.9 mmhg (35.0-45.0); ABG PH 7.33 mmol/L (7.35-7.45); ABG PO2 328.7 mmhg (80-100); ABG TCO2 26.1 mmhg (23-27)
[2023-07-12 02:41] LABS: Squamous Epithelial Cell,Urine Occasional #/hpf (0-5); WBC,Urine Occasional #/hpf (0-3)
[2023-07-12 02:44] LABS: Oxygen 100 %; Tidal Volume 440
[2023-07-12 02:45] LABS: Allen's Test Patient Unable; PEEP 12; Source Right Radial; Vent Rate 18
--- NOTE | 2023-07-12 02:45 | PC.NURSE ---
RESP CARE NOTE: ABG 1 hour post intubation results given to Dr. Beverly. Orders are as follows decrease FIO2 to 70%, increase rate to 22, and keep peep at 12.
[2023-07-12 02:48] VITALS: PULSE 75
[2023-07-12 03:00] VITALS: RESP 22; O2SAT 100
--- NOTE | 2023-07-12 03:08 | PC.NURSE ---
Report called to GUILLE Wellington at ICU. Patient will be going to [facility] 9th floor room 141.
--- NOTE | 2023-07-12 04:04 | PC.NURSE ---
RN called [facility] to verify demographics of patient. RN told [facility] that patient weighted 158kg and was on a ventilator. [facility] did accept patient.
--- NOTE | 2023-07-12 04:39 | PC.NURSE ---
pt transfered out to by EMS via stretcher @03:45 am
--- NOTE | 2023-07-12 06:59 | P.PN_ITS ---
Critical Care Event Note Summary Code activated: No Narrative: This case had a high probability of a clinically significant, sudden, or life threatening deterioration of this patient's condition which required my full and direct attention, intervention and personal management. In the middle of the night, a rapid alert was called. Upon arrival to the bedside, the patient was significantly altered, requiring high settings on high flow nasal cannula, tachypnic with increased WOB, and still remained borderline hypoxic. After quick review of the chart, patient was reportedly admitted to the hospital for viral URI versus superimposed bacterial pneumonia. Over the course of the past 24 hours, the patient has had progressively worsening acute hypoxic respiratory failure. Patient had already failed BiPAP therapy due to altered mental status. Patient's blood gases were notable for rising CO2, likely contributing to CO2 narcosis. Thus, given that the patient was significantly altered and was having a worsening respiratory status, the decision to intubate was made. Patient's sister who was at bedside, noted that the patient wanted everything to be done and thus was a full code. Per nursing staff, the patient also requested to be placed on ventilator hours before. Intubation was successful, no complications. CXR confirmed appropriate ET tube placement. Chest x-ray was notable for ARDS pattern. It was verified with nursing and the patient was on broad-spectrum antibiotics with vanc cefepime. Given that the patient was stable, remainder of care was left to primary team Critical care time: 30 - [address] [facility] Critical Care Exam Physical Exam Vital signs: Temp Pulse Resp BP Pulse Ox O2 Del Method O2 Flow Rate 98.7 F 75 22 102/67 L 100 Mechanical Ventilation 30 07/12/23 02:00 07/12/23 02:48 07/12/23 03:00 07/12/23 02:00 07/12/23 03:00 07/12/23 03:00 07/12/23 00:00 FiO2 70 07/12/23 03:00 Constitutional Constitutional: Present no acute distress, morbidly obese and agitated Routine HEENT Exam Head: Present normocephalic Eye: Present EOMI ENT: Present mucous membranes moist Routine Respiratory Exam Respiratory: Present accessory muscle use, rales, respiratory distress and rhonchi Routine Cardiovascular Exam Cardiovascular: Present tachycardia Routine Abdominal Exam Abdominal: Present soft; Absent tenderness or distended Routine Extremities Exam Extremities: Present edema [facility] Cardiology Procedures Intubation Time out performed: Yes Sedative: etomidate Mg given: 40 Paralytic: succinylcholine Mg given: 200 Laryngoscope: fiber optic video scope ET tube size: 7.5 ET tube uncuffed: Yes Tube secured depth (cm): 23 Tube secured location: teeth Tube placement confirmation: visualized tube passing through cords, equal breath sounds bilaterally and confirmation by capnometry Patient tolerated procedure: no complications Intubation complications: none
[2023-07-14 14:34] LABS: Body Fluid Culture, Sterile Not indicated. (.); Legionella pneumophila Urinary Negative (Negative); Organism ID Not indicated. (.); Specimen Source Urine (.); Streptococcus pneumoniae Ag Negative (Negative)
--- NOTE | 2023-07-17 14:24 | PC.NURSE ---
blood culture positive for brevibacterium casei, pt transferred to , vanc, zosyn and azithromycin given before transfer, MD Solorzano notified, no further action
--- NOTE | 2023-07-18 22:51 | EXP.DC.SUM ---
General Admission date:: 07/09/23 Discharge date: 07/12/23 HPI HPI HPI: Patient is a 68-year-old patient with history of hypertension, hyperlipidemia, asthma, Xiong's palsy, chronic atrial fibs who presented to [facility] yesterday complaining of fever as high as 103 body weakness and aches chills and shortness of breath. She states that she has been sick for 2 to 3 days prior to the arrival. Her she has had a progressive productive cough and describes some nausea but no vomiting or diarrhea. She did receive a prescription for Tamiflu from physician in [place]. This did not seem to help at all. With evaluation in the emergency room she was found to be clinically stable with a fever.In the emergency room white blood cell count was 15,300. She has several liters of fluid was started on a diltiazem drip after bolus as well as Zithromax and Rocephin. She was then admitted with a presumed pneumonia. To note patient flu and COVID test were both negative. Chest x-ray on admission showed bibasilar consolidation and right midlung ground glass infiltrate likely representing combination of pneumonia and atelectasis in #2 cardiomegaly with elevated central venous pressure Patient is on Vapotherm 35 L/min or 80% with O2 sats at 94%. She has had a fever with a temperature this a.m. 100.5. She had atrial fibs throughout the night which is chronic for her but with a rapid ventricular response around 150. She received a total of 750 mcg of digoxin and is on maximum diltiazem drip. She also received some metoprolol total of 10 mg IV. Daughter stayed with her throughout the night and states she is better since heart rate has decreased. Patient states she is still somewhat short of breath. She is able to assist with exam. She denies any chest pain. She does not want any breakfast. This a.m. on Vapotherm patient's pH is 7.40 PCO2 is 33.4 PO2 69.4 with a bicarb of 20.4 Also to note patient was recently treated for UTI and was initially on Levaquin after which she had severe leg discomfort and was unable to walk. She was then changed to a cephalosporin. She feels her UTI has resolved. Hospital Course Hospital Course Hospital Course: The patient was admitted and cardiology and pulmonology were consulted. P.o. potassium was added and she was continued on Xopenex and antibiotics. She was seen by pulmonology and he wanted her continued on high flow nasal cannula oxygen to maintain oxygen saturations above 92%. He also wanted to continue Xopenex and ipratropium every 6 hours along with Pulmicort every 12 hours. Cardiology saw the patient and felt her A-fib was likely exacerbated by her underlying pneumonia and sepsis. He wanted her continued on the diltiazem drip and started on 240 mg of diltiazem p.o. daily. Her home dose of metoprolol succinate was doubled to 100 mg twice daily for rate control. He felt the prominent ming on chest x-ray was worrisome for pulmonary arterial hypertension and recommended a CTA of the chest when she could lay flat. He also gave her a one-time dose of 40 mg of IV Lasix. Her heart rate did improve with medication. She did begin feeling less short of breath. She was unable to sleep as she usually took Tylenol PM at home. Tylenol PM was added and her trazodone was increased. She was restarted on some of her home medication. She was able to be weaned off the diltiazem drip with heart rates in the 70s and 80s. She did begin having some worsening respiratory distress with no significant improvement in her leukocytosis. She required increased oxygen to maintain sats above 90%. Her wheezing was worse. Pulmonology wanted to change her antibiotics to vancomycin and cefepime along with azithromycin. During the evening of 07/12/2023, a rapid alert was called on the patient. Her mental status was altered and she was requiring high settings of high flow nasal cannula. She was tachypneic with worsened work of breathing. S
== END 2023-07-12 03:45 | disposition short-term general hospital (02) | DRG 193 ==
LOC: ER 14:02 → 2ND 07-10 00:56
PROVIDERS: Internal Medicine Pulmonary Disease; Nurse Practitioner; Nurse Practitioner Family; Admitting Provider Family Medicine; Emergency Provider Emergency Medicine; PCP Family Medicine; Visit Provider Family Medicine
DX: J18.9 Pneumonia, unspecified organism (principal); J80 Acute respiratory distress syndrome; I48.20 Chronic atrial fibrillation, unspecified; Z68.43 Body mass index [BMI] 50.0-59.9, adult; E87.6 Hypokalemia; E78.5 Hyperlipidemia, unspecified; I11.0 Hypertensive heart disease with heart failure; I50.9 Heart failure, unspecified; Z79.01 Long term (current) use of anticoagulants; I71.9 Aortic aneurysm of unspecified site, without rupture; E66.01 Morbid (severe) obesity due to excess calories
CPT/HCPCS: 36415; 71045; 71046; 80048; 80053; 81001; 82803; 82962; 83605; 84436; 84443; 84484; 85007; 85014; 85018; 85025; 85048; 85049; 87040; 87070; 87081; 87102; 87205; 87206; 87632; 87635; 87636; 87899; 93005; 93306; 94002; 94640; 94667; 94668; 94760; 94761; 99291; J0330; J0456; J0696; J2405; J2704; J3370

== ENCOUNTER 2025-03-06 13:54 | Outpatient (CLI) | payer MEDICARE, BC, SELFPAY ==
--- NOTE | 2025-03-06 14:08 | ECG_ITS ---
APPROVED REPORT Exam: Resting ECG HR:103 bpm ECG Measurements Heart Rate 103 AXES QRSd 123 QRS 270 QT 355 T 44 QTc 414 Conclusion ATRIAL FIBRILLATION WITH RAPID VENTRICULAR RESPONSE RIGHT AXIS DEVIATION [QRS AXIS > 100] ANTEROSEPTAL MYOCARDIAL INFARCTION , PROBABLY OLD [40+ ms Q WAVE IN V1-V4] ABNORMAL ECG UNCONFIRMED REPORT Electronically signed by : Good Nagy MD 03/08/2025 14:56:54
--- OUTSIDE RECORDS SUMMARY | 2025-03-06 14:16 | XMS_ITS | Encounter Summary ---
Author Organization Healthcare Address [address] [place] [address] Care Team Providers Care Creative Art Director Name Role Phone Osito Ventura MD Primary Care Provider [phone] Osito Ventura MD Unavailable [phone] Reason for Visit * Reason Comments Med Refill Encounter Details Date Type Department Care Team ([facility] st Contact Info) Description 02/28/2025 Refill [facility] [place] [facility] [address] [facility], [address] [place] [address] Joni Trujillo MD [address] [place] [address] Atrial fibrillation, unspecified type (CMS/HCC) Social History Tobacco Use Types Packs/Day Years Used Date Smoking Tobacco: Never Smokeless Tobacco: Never Alcohol Use Standard Drinks/Week Comments Yes 0 (1 standard drink = 0.6 oz pure alcohol) Alcoholic Drinks/day: Occasional alcohol use Humiliation, Afraid, Rape, and Kick questionnair e Answer Date Recorded Within the last year, have y ou been afraid of your partner or ex-partner? No 07/17/2023 Within the last year, have y ou been humiliated or emotionally abused in other ways by your partner or ex-partner? No Within the last year, have y ou been kicked, hit, slapped, or otherwise physically hurt by your partner or ex-partner? No 07/17/2023 Within the last year, have y ou been raped or forced to have any kind of sexual activity by your partner or ex-partner? No 07/17/2023 Social Connection and Isolation Panel Answer Date Recorded In a typical week, how many times do you talk on the phone with family, friends, or neighbors? Three times a week 07/17/2023 How often do you get togethe r with friends or relatives? Three times a week 07/17/2023 Attends Spiritism Services Not on file 07/17 Active Member of Clubs or Organizations Not on f ile 07/17/2023 Attends Club or Organization Meetings Not on valery e 07/17/2023 Are you , , di vorced, , never , or living with a partner? 07/17/2023 AUDIT-C Answer Date Recorded Q1: How often do you have a drink containing alcohol? Never 07/17/2023 Q2: How many drinks containi ng alcohol do you have on a typical day when you are drinking? Patient does not drink Q3: How often do you have si x or more drinks on one occasion? Never 07/17/2023 Overall Financial Resource Strain (CARDIA) Answe r Date Recorded How hard is it for you to pa y for the very basics like food, housing, medical care, and heating? Not hard at all 07/17/2023 [facility] - Occupational Stress Questionnaire Answer Date Recorded Do you feel stress - tense, restless, nervous, or anxious, or unable to sleep at night because your mind is troubled all the time - these days? Not at all 07/17/2023 Exercise Vital Sign Answer Date Recorde d On average, how many days pe r week do you engage in moderate to strenuous exercise (like a brisk walk)? 2 days 07/17/2023 On average, how many minutes do you engage in exercise at this level? 30 min 07/17/2023 Hunger Vital Sign Answer Date Recorded Within the past 12 months, y ou worried that your food would run out before you got the money to buy more. Never true 07/17/20 23 Within the past 12 months, t he food you bought just didn't last and you didn't have money to get more. Never true 07/17/2023 PRAPARE - Transportation Answer Date Re corded In the past 12 months, has l ack of transportation kept you from medical appointments or from getting medications? No 06/20 In the past 12 months, has l ack of transportation kept you from meetings, work, or from getting things needed for daily living? No 07/17/2023 Housing Stability Vital Sign Answer Bernardo e Recorded In the last 12 months, was t here a time when you were not able to pay the mortgage or rent on time? No 07/17/2023 Number of Places Lived in the Last Year Not on f ile 07/17/2023 In the last 12 months, was t here a time when you did not have a steady place to sleep or slept in a senior living (including now)? No 07/17/2023 Utilities Answer Date Recorded In the past 12 months has th e electric, gas, oil, or water company threatened to shut off services in your home? 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
--- OUTSIDE RECORDS SUMMARY | 2025-03-06 14:16 | XMS_ITS ---
Author Organization Unknown Allergies, Adverse Reactions and Alerts Date IsAllergic OnsetDate Allergen Reaction Type Severity Arnaldo rgyCode Legacyallergictoid ReactionCode ReactionCodeSystemID 02/05 00:00 :00 1 levoFLOXa jono tendon pain 01/10 00:00 :00 1 levoFLOXa jono tendon pain 12/02 00:00 :00 1 levoFLOXa jono tendon pain 11/18 00:00 :00 1 levoFLOXa jono tendon pain 11/15 00:00 :00 1 levoFLOXa jono tendon pain 11/14 00:00 :00 1 levoFLOXa jono tendon pain 11/11 00:00 :00 1 levoFLOXa jono tendon pain 11/06 00:00 :00 1 levoFLOXa jono tendon pain
--- OUTSIDE RECORDS SUMMARY | 2025-03-06 14:16 | XMS_ITS | Encounter Summary ---
Author Organization Healthcare Address [address] [place] [address] Care Team Providers Care Poultry Farmer Meat Name Role Phone Osito Ventura MD Primary Care Provider [phone] Osito Ventura MD Unavailable [phone] Reason for Visit * Reason Comments Med Refill Encounter Details Date Type Department Care Team ([facility] st Contact Info) Description 02/21/2025 Refill [facility] [place] [address] [facility] [address], [address] [place] [address] Joni Trujillo MD [address] [place] [address] Atrial fibrillation, unspecified type (CMS/HCC) [...] relatives? Three times a week 07/17/2023 Attends [employer] Not on file 07/17 Active Member [...] and heating? Not hard at all 07/17/2023 [facility] [place] of Occupat ional Health - Occupational Stress [...] place to sleep or slept in a halfway (including now)? No 07/17/2023 Utilities Answer Date [...] documented as of this encounter Care Teams Poultry Farmer Meat Relationship Specialty Start Date End Date Osito Ventura MD [address] [place] [address] PCP - General 07/12/22 Osito Ventura MD [address] [place], [place] [address] 07/12/22 documented as of this encounter
--- OUTSIDE RECORDS SUMMARY | 2025-03-06 14:16 | XMS_ITS | Clinical Summary ---
Author Organization [facility] Address [address] [place] [address] Care Team Providers Care Priming Mixture Carrier Name Role Phone Osito Ventura MD Primary Care Provider [phone] Osito Ventura MD Unavailable [phone] Allergies No known active allergies Medications Breo Ellipta 200-25 MCG/ACT aerosol powder Inhale 1 puff 1 (one) time each day. Active fluticasone (Flonase) 50 MCG/ACT nasal spray Administer 2 sprays into each nostril 1 (one) time each day. Active Xarelto 20 MG tablet Take 1 tablet (20 mg) by mouth 1 (one) time each day. Active atorvastatin (Lipitor) 40 MG tablet Take 1 tablet (40 mg) by mouth every night. 30 tablet 3 Active acetaminophen (Tylenol) 325 MG tablet Take 2 tablets (650 mg) by mouth every 4 (four) hours if needed for fever (for temperature > 38.5). 100 tablet 3 Active hydrOXYzine pamoate (Vistaril) 25 MG capsule Take 1 capsule (25 mg) by mouth every 6 (six) hours if needed for anxiety for up to 10 days. 30 capsule 3 Active furosemide (Lasix) 20 MG tablet Take 3 tablets (60 mg) by mouth 1 (one) time each day. 90 tablet 3 Active GNP Vitamin D Super Strength 125 MCG (5000 UT) tablet Take 1 tablet (5,000 Units) by mouth 1 (one) time each day. 01/17/202 4 Active doxazosin (Cardura) 2 MG tablet Take 1 tablet (2 mg) by mouth every night. 4 Active Mounjaro 2.5 MG/0.5ML solution pen-injector solution pen-injector Inject 0.5 mL (2.5 mg) under the skin 1 (one) time per week. 4 Active Jardiance 10 MG Take 1 tablet (10 mg) by mouth 1 (one) time each day. 4 Active folic acid (Folvite) 1 MG tablet Take 1 tablet (1,000 mcg) by mouth 1 (one) time each day. 4 Active benzonatate (Tessalon) 100 MG capsule Take 1 capsule (100 mg) by mouth 3 (three) times a day if needed for cough. Do not crush or chew. Active SENNA PO Take by mouth 1 (one) time each day if needed. Active Famotidine (PEPCID PO) Take by mouth if needed. Active MELATONIN PO Take by mouth at night if needed. Active losartan (Cozaar) 25 MG tabletIndication s:Essential hypertension TAKE TWO TABLETS BY MOUTH EVERY DAY 60 tablet 2 5 Active metoprolol succinate XL (Toprol-XL) 100 MG 24 hr tabletIndication s:Atrial fibrillation, unspecified type (CMS/HCC) Take 1.5 tablets (150 mg) by mouth daily. 45 tablet 2 5 Active Active Problems Problem Noted Date Diagnosed Date A-fib 07/25/2023 Class III obesity with body mass index (BMI) of 40.0 or higher 07/16/2023 Resolved Problems Problem Noted Date Diagnosed Date Resolved Date Viral pneumonia 07/12/2023 07/25/2023 Acute respiratory failure wi th hypoxia and hypercapnia 07/25/2023 Encounters Date Type Department Care Team Description 03/01/2025 Refill [facility] [place] [address], [address] [place] [address] Joni Trujillo MD Atrial fibrillation, unspecified type (CMS/HCC) 02/28/2025 Refill [facility] [place] [address], [address] [place] [address] Joni Trujillo MD Atrial fibrillation, unspecified type (CMS/HCC) 02/21/2025 [facility] [place] [address], [address] [place] [address] Jnoi Trujillo MD Atrial fibrillation, unspecified type (CMS/HCC) from Last 3 Months Immunizations Immunization Administration Dates Next Due Influenza, high-dose, quadrivalent 09/24/2018 Pneumococcal Conjugate PCV 13 12/31/2018 Pneumococcal Polysaccharide PPV23 12/21/2017 TD (adult), 2 Lf tetanus tox oid, preservative free, adsorbed 11/20/1996 Tdap 12/21/2017 Family History Medical History Relation Name Comments Breast cancer Other 1 Diabetes type II Other 2 Breast cancer Sister 1 Diabetes type II Sister 2 Breast cancer Sister 3 FH: breast can cer Relation Name Status Comments Other 1 Other 2 Sister 1 Sister 2 Sister 3 Social History Tobacco Use Types Packs/Day Years [...] relatives? Three times a week 07/17/2023 Attends [employer] Services Not on file 07/17 Active Member [...] and heating? Not hard at all 07/17/2023 [facility] [place] of Occupat ional Health - Occupational Stress [...] place to sleep or slept in a snf (including now)? No 07/17/2023 Utilities Answer Date Recorded In the past 12 months has th e electric, gas, oil, or water company threatened to shut off services in your home? No 07/17/2023 Comments Unknown Sex and Gender Information Value Date Recorded Sex Assigned at Not on file Legal Sex Female 7:33 PM EDT Gender Identity Not on file Sexual Orientation Not on file Last Filed Vital Signs Vital Sign Reading Time Taken Comments Blood Pressure 151/95 10/27/2023 1:28 PM EST Pulse 92 10/27/2023 1:28 PM EST Temperature 36.5 C (97.7 F) 07/25/2023 12:08 PM EST Respiratory Rate 18 07/25/2023 3:49 AM EST Oxygen Saturation 97% 10/27/2023 1:28 PM EST Inhaled Oxygen Concentration - - Weight 143 kg (315 lb 4.1 oz) 10/27/2023 1:28 PM EST Height 165.1 cm (5' 5 ) 10/27/2023 1:28 PM EST Body Mass Index 52.46 10/27/2023 1:28 PM EST Plan of Treatment Health Maintenance Due Date Last Done Comments [facility]-Bone Density Scan 1955 [facility]-Depression Screening 1955 [facility]-Hepatitis C Screening 1955 [facility]-Medicare Annual Wellness (AWV) 1955 [facility]-/Child/Adol SDOH Screenings 1955 [facility]- SDOH Screenings 1971 [facility]-Adult SDOH Screenings 1971 CT Colonography 1998 Colonoscopy 1998 FIT-DNA 1998 FIT 1998 FOBT 1998 Sigmoidoscopy 1998 [facility]-Colorectal Cancer Screening 1998 [facility]-Breast Cancer Screening 2003 [facility]-Zoster Vaccines (1 of 2) 2003 [facility]-RSV Vaccine: 60+ Years o r (1 - Risk 60-74 years 1-dose series) 2013 [facility]-Pneumococcal Vaccine: 50 + Years (3 of 3 - PCV20 or PCV21) 01/01/2024 12/31/2018, 12/21/2017 [id number] Vaccine (4 - season) 2024 09/30/2021, 12/16/2020, 11/18/2020 [facility]-Influenza Vaccine (Seaso n Ended) 2025 09/24/2018 [facility]-DTaP,Tdap,and Td Vaccine s (2 - Td or Tdap) 12/22/2027 12/21/2017, 11/20/1996 [facility]-Diabetes: Hemoglobin A1C Discontinued 07/12/2023 [facility]-Obesity Intervention Completed 024, 07/12/2023 HPV Vaccines Aged Out No longer eligi ble based on patient's age to complete this topic [facility]-HIB Vaccines Aged Out No longer e ligible based on patient's age to complete this topic [facility]-Hepatitis A Vaccines Aged Out No longer eligible based on patient's age to complete this topic [facility]-IPV Vaccines Aged Out No longer e ligible based on patient's age to complete this topic [facility]-Rotavirus Vaccines Aged Out No lo nger eligible based on patient's age to complete this topic Procedures Procedure Name Priority Date/Time Associated Diagnosis Comments HEMOGLOBIN A1C Routine 07/12/2023 5:45 AM EDT from Last 3 Months or Most Recently Relevant to Health Maintenance Results * (ABNORMAL) Hemoglobin A1c (07/12/2023 5:45 AM EDT) Hemoglobin A1c 6.0(H) <5.7 % 07/12/2023 7:02 AM EDT [facility] Blood Venous blood specimen / Unknown Venipuncture / Unknown 07/12/2023 5:45 AM EDT 07/12/2023 6:33 AM EDT Narrative [facility] - 07/12/2023 7:02 AM EDT HA1C Interpretive Data: Diagnosis of Diabetes: Diabetic > or = 6.5% Pre-diabetic 5.7 to 6.4% Non-diabetic < or = 5.6% Glycemic Targets for Type I and Type II Diabetics: Non- Adults <7.0% Adults <6.0% Children and Adolescents <7.5% Source: [place] [employer]. Standards of medical care in diabetes,2017. Diabetes Care.2017:40 (suppl 1):S1-S135. HbA1c assay performed by an ion-exchange chromatography method that is certified traceable to the DCCT. 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 Yes Healthcare Agents on File Name Relationship Healthcare Agent Relationshi p Communication Mata Farias Spouse Next of Kin Care Teams Priming Mixture Carrier Relationship Specialty Start Date End Date Osito Ventura MD [address] [place] [id number] PCP - General 07/12/22 Osito Ventura MD [address] [place] [address] 07/12/22
--- OUTSIDE RECORDS SUMMARY | 2025-03-06 14:16 | XMS_ITS | Encounter Summary ---
Author Organization Healthcare Address [address] [place] [address] Care Team Providers Care Director Automotive Name Role Phone Osito Ventura MD Primary Care Provider [phone] Osito Ventura MD Unavailable [phone] Reason for Visit * Reason Comments Med Refill Encounter Details Date Type Department Care Team ([facility] st Contact Info) Description 03/01/2025 Refill [facility] [place] [address] [facility] [address], [address] [place] [address] Joni Trujillo MD [address] [place] [address] Atrial fibrillation, unspecified type (CMS/HCC) [...] relatives? Three times a week 07/17/2023 Attends [employer] Services Not on file 07/17 Active Member [...] and heating? Not hard at all 07/17/2023 [facility] [place] of Occupat ional Health - Occupational Stress [...] place to sleep or slept in a assisted (including now)? No 07/17/2023 Utilities Answer Date [...] documented as of this encounter Care Teams Director Automotive Relationship Specialty Start Date End Date Osito Ventura MD [address] [place] [address] PCP - General 07/12/22 Osito Ventura MD [address] [place], [place] [address] 07/12/22 documented as of this encounter
== END 2025-03-06 23:59 | disposition home or self-care (01) ==
LOC: RT 13:58
PROVIDERS: PCP Family Medicine; Visit Provider Family Medicine
DX: I48.91 Unspecified atrial fibrillation (principal); I25.2 Old myocardial infarction; R94.31 Abnormal electrocardiogram [ECG] [EKG]
CPT/HCPCS: 93005

== ENCOUNTER 2025-04-07 12:53 | Outpatient (CLI) | payer MEDICARE, SELFPAY ==
--- OUTSIDE RECORDS SUMMARY | 2025-03-06 10:45 | XMS_ITS ---
Author Organization [facility] Address [address] [facility] [address] [place] [id number] Care Team Providers Care Regional Director Of Admissions Name Role Phone Yennifer Ventura Primary Care Provider [phone] Allergies Allergen (clinical drug ingredient) Drug/Non Drug Allergy documented on EMR Reaction Allergy Type Onset Date Status levofloxacin levoFLOXacin tendon pain Drug Allergy Active Results Component Value Reference Range Notes P-Comprehensive Metabolic Pa damián (CMP) (Not yet reviewed by provider) Interpretation:gkuc 111, Ca 10.5, alk phos 139 Performing Lab: Notes/Report: Test performed by [facility] [address] [place], [place] [address] [address] , [address], [place] [address] Wei Cline MD, Production Support Analyst CLIA: [id number] Sodium 141 135-145 mmol/L Potassium 4.1 3.5-5.3 mmol/L Chloride 104 97-108 mmol/L CO2 27 22-32 mmol/L Glucose 111 65-99 mg/dL BUN 15 8-23 mg/dL Creatinine 0.79 0.50-1.00 mg/dL Calcium 10.5 8.6-10.4 mg/dL eGFR by Creatinine 80 >59 mL/min/1.73m2 Protein 6.5 6.0-8.3 g/dL Albumin 4.0 3.5-5.3 g/dL Alkaline Phosphatase 139 35-121 IU/L ALT (SGPT) 16 <5-47 IU/L AST (SGOT) 15 <5-40 IU/L Bilirubin, Total 0.4 <0.2-1.2 mg/dL A/G Ratio 1.6 1.1-2.5 P-Hemoglobin A1C (Not yet re viewed by provider) Interpretation:5.9 Performing Lab: Notes/Report: Test performed by [facility] [address] [place], [place] [address], [place] [address] Wei Cline MD, Production Support Analyst CLIA: [id number] Hemoglobin A1C 5.9 <5.7 % The following HbA1c ranges recommended by the [place] [employer] (ADA) may be used as an aid in the diagnosis of diabetes mellitus. HbA1c Suggested Diagnosis >=6.5% Diabetic 5.7% - 6.4% Pre-Diabetic <5.7% Non-Diabetic Estimated Average Glucose (N ot yet reviewed by provider) Interpretation:123 Performing Lab: Notes/Report: Test performed by [facility] [address] [place] [address] , [address], [place] [address] Wei Cline MD, Production Support Analyst CLIA: [id number] Estimated Average Glucose (eAG) 123 Estimated Average Glucose (eAG) is calculated using the equation eAG = (28.7 x HbA1c) - 46.7 based on the guidelines established by the ADA. If the patient has certain diseases including kidney disease, sickle cell anemia, thalassemia, or is taking medications such as dapsone, erythropoietin, or iron, eAG should not be evaluated. REASON FOR VISIT 2 month ckup, Needs labs, mammogram, bone density screening, colon cancer screening, & diabeticeye exam Medications Medication SIG (Take, Route, Frequency, Duration) Notes Start Date End Date Status dilTIAZem HCl ER Beads 360 MG TAKE ONE CAPSULE BY MOUTH EVERY DAY; Duration: 30 Not-Taking Jardiance 10 mg TAKE ONE TABLET BY MOUTH EVERY DAY; Duration: 30 days Not-Taking B-12 1000 MCG 1 tab(s) orally once a day; Duration: 30 day(s) 05/07/2020 Not-Taking Irbesartan 300 mg TAKE ONE TABLET BY MOUTH EVERY DAY; Duration: 30 Not-Taking Xarelto 20 mg 1 tablet orally once daily; Duration: 30 days Active hydrOXYzine HCl 25 mg TAKE ONE TABLET BY MOUTH THREE TIMES DAILY NEEDED MAY CAUSE DROWSINESS; Duration: 30 Not-Taking Pepcid 20 MG 1 tab(s) orally prn Active Doxazosin Mesylate 2 MG 1 tab(s) orally At Bed Time; Duration: 30 days patient needs appt Active Atorvastatin Calcium 40 mg 1 tablet Orally Once a day; Duration: 30 days Active Breo Ellipta 200-25 MCG/ACT INHALE 1 PUFF BY MOUTH EVERY DAY; Duration: 30 days Active Acetaminophen 325 MG 1 tablet as needed Orally every 4 hrs Active MiraLax 17 GM/SCOOP 1 scoop mixed with 8 ounces of fluid Orally Once a day; Duration: 30 day(s) Active Melatonin 3 MG 1 tablet at bedtime as needed Orally Once a day; Duration: 30 day(s) Active Senna-Docusate Sodium 8.6-50 MG 1 tablet as needed Orally Twice a day Active Furosemide 80 MG 1 tablet Orally Once a day; Duration: 30 day(s) 11/11/2024 Active Losartan Potassium 100 MG 1/2 Orally bedtime; Duration: 30 days 11/11/2024 Active Metoprolol Succinate ER 100 mg TAKE ONE AND HALF TABLETS BY MOUTH EVERY DAY; Duration: 30 days Active Mounjaro 7.5 MG/0.5ML as directed Subcutaneous weekly 03/06/2025 Active Problems Problem Type SNOMED Code ICD Code Onset Dates Problem Status W/U Status Risk Notes Problem Type 2 diabetes mellitus with other specified complication (E11.69) Active confirmed Vital Signs Weight 318.4 lbs 03/06/2025 Blood pressure systolic 107 mm Hg 03/06/20 25 Blood pressure diastolic 78 mm Hg 025 Heart Rate 94 /min 03/06/2025 Height 64.75 in 03/06/2025 BMI 53.39 kg/m2 03/06/2025 Encounters Encounter Location Date Provider Diagnosis [facility] [address] [id number] 03/06/2025 Yennifer Ventura Persistent atrial fibrillation I48.19 ; BMI 50.0-59.9, adult Z68.43 ; Essential (primary) hypertension I10 ; Asthmatic bronchitis , chronic J44.9 and Type 2 diabetes mellitus with other specified complication E11.69 Assessments Encounter Date Diagnosis (ICD Code) Assessment Notes Treatment Notes Treatment Clinical Notes Section Notes 03/06/2025 Persistent atrial fibrillation (ICD-10 - I48.19) 03/06/2025 BMI 50.0-59.9, adult (ICD-10 - Z68.43) 03/06/2025 Essential (primary) hypertension (ICD-10 - I10) 03/06/2025 Asthmatic bronchitis , chronic (ICD-10 - J44.9) 03/06/2025 Type 2 diabetes mellitus with other specified complication (ICD-10 - E11.69) Plan Of Treatment Medication Medication Name Sig Start Date Stop Date Notes Losartan Potassium 100 MG 1/2 Orally bed time; Duration: 30 days 11/11/2024 Metoprolol Succinate ER 100 mg TAKE ONE AND HALF TABLETS BY MOUTH EVERY DAY; Duration: 30 days Mounjaro 7.5 MG/0.5ML as directed Subcut aneous weekly 03/06/2025 Mounjaro 5 MG/0.5ML 5 mg Subcutaneous once a week 01/11/20 Pending Test Test Name Order Date P-Comprehensive Metabolic Panel (CMP) P-Hemoglobin A1C 03/06/2025 Estimated Average Glucose 03/06/2025 Next Appt Details Follow Up: 4 Weeks, Reason: Provider Name:Yennifer Ortiz er, 07/21/2025 02:15:00 PM, [address] [facility] [address] [facility], [address], [place], [place], [id number], Progress Notes * BARB HAGENB:1955 (69 yo F)Acc No.[id number]:03/06/2025 Progress Notes Patient: BALDO FERRER Provider: Yeninfer Ventura M.D. :1955 A ge:69 Y S ex:Female Date:03/06/2025 Address:[address] [place] [address], [place], [place] Subjective: * Chief Complaints: * 1 . 2 month ckup. 2. Needs labs, mammogram, bone density screening, colon cancer screening, & diabetic eye exam. * HPI: C ardiology: The pt is here for a check up on Hypertension and Diabetes. Pt states she went to for the EKG and they stated she was in A fib with a heart rate at 103. Pt states she has had a lot of fatigue and shortness of breath. Pt is fasting. She says she has follow-up at [facility] Cardiology in May, Dr. Joni Trujillo. She brings a Metoprolol bottle RX by Dr. Trujillo, 100mg, 1 1/2 pills daily. .? She is out of Metoprolol. 69 year old female presents with c/o Short of Breath w ith exertion. c/o Palpitations. c/o Fatigue w orse with exertion. Denies : Chest Pain. D enies : Dizziness. * ROS: D ERMATOLOGY: no R garry. n o H nafisa. G ASTROENTEROLOGY: no N ausea. n o V omiting. n o D iarrhea.? U ROLOGY: no D ifficulty urinating. n o B lood in urine. * Medical History: H ypertension, Hyperlipidemia, Asthma, weight induced, [place] palsy, Atrial fibrillation, COVID vaccine Nov 2020, Moderna. * Family History: F ather: . M other: . 3 sister(s) . 1 son(s) , 1 daughter(s) . . * Social History: C URRENT TOBACCO USE S moking Status: Patient does NOT smoke. C affeine: yes, frequency:coffee, pop and tea, qd. Home smoke detector use: yes. Marital Status: . Alcohol: Yes, Type: , Frequency: ,Years: , Determination:, occasional. * Medications: T aking Losartan Potassium 100 MG Tablet 1 tablet Orally Once a day , Taking Furosemide 80 MG Tablet 1 tablet Orally Once a day , Taking Senna-Docusate Sodium 8.6-50 MG Tablet 1 tablet as needed Orally Twice a day , Taking MiraLax 17 GM/SCOOP Powder 1 scoop mixed with 8 ounces of fluid Orally Once a day , Taking Acetaminophen 325 MG Tablet 1 tablet as needed Orally every 4 hrs , Taking Melatonin 3 MG Tablet 1 tablet at bedtime as needed Orally Once a day , Taking Metoprolol Succinate ER 100 mg Tablet Extended Release 24 Hour TAKE ONE AND HALF TABLETS BY MOUTH EVERY DAY , Taking Pepcid 20 MG Tablet 1 tab(s) orally prn , Taking Mounjaro 5 MG/0.5ML Solution Auto- injector 5 mg Subcutaneous once a week , Taking Doxazosin Mesylate 2 MG Tablet 1 tab(s) orally At Bed Time , Notes to Pharmacist: patient needs appt, Taking Atorvastatin Calcium 40 mg Tablet 1 tablet Orally Once a day , Taking Breo Ellipta 200-25 MCG/ACT Aerosol Powder Breath Activated INHALE 1 PUFF BY MOUTH EVERY DAY , Taking Xarelto 20 mg Tablet 1 tablet orally once daily , Not-Taking hydrOXYzine HCl 25 mg Tablet TAKE ONE TABLET BY MOUTH THREE TIMES DAILY NEEDED MAY CAUSE DROWSINESS , Not- Taking Jardiance 10 mg Tablet TAKE ONE TABLET BY MOUTH EVERY DAY , Not-Taking dilTIAZem HCl ER Beads 360 MG Capsule Extended Release 24 Hour TAKE ONE CAPSULE BY MOUTH EVERY DAY , Not-Taking Irbesartan 300 mg Tablet TAKE ONE TABLET BY MOUTH EVERY DAY , Not- Taking B-12 1000 MCG Tablet 1 tab(s) orally once a day , Medication List reviewed and reconciled with the patient * Allergies: l evoFLOXacin: tendon pain. Objective: * Vitals: W t: 318.4, Temp: 97.7, BP: 107/78, HR: 94, O2 Sat: 98% on RA, Nurse: VANDANA, Ht: 64.75, BMI:53.39. * Examination: G eneral Examination: General Appearance: N AD, Speaks in complete sentences, Color good. Note weight. . N josselin: s upple, no lymphadenopathy. C hest:?normal shape and expansion. H eart: irregular rhythm, 100. L ungs: c lear to auscultation. A bdomen: obese, soft and nontender, no organomegaly or masses. N eurologic Exam: u ses a walker. S kin: n ormal, pretibial stasis rash on right. P eripheral pulses: n ormal . E xtremities: 3+ leg edema. Assessment: * Assessment: 1. P ersistent atrial fibrillation - I48.19 (Primary) 2 . B [place] 50.0-59.9, adult - Z68.43 3 . E ssential (primary) hypertension - I10 4 .?Asthmatic bronchitis , chronic - J44.9 5 . T ype 2 diabetes mellitus with other specified complication - E11.69 Plan: * Treatment: 2. B [place] 50.0-59.9, adult Stop Mounjaro Solution Auto-injector, 5 MG/0.5ML, 5 mg, Subcutaneous, once a week; S tart Mounjaro Solution Auto-injector, 7.5 MG/0.5ML, as directed, Subcutaneous, weekly, 4, Refills 5. ? 3. E ssential (primary) hypertension Decrease Losartan Potassium Tablet, 100 MG, 1/2, Orally, bedtime, 30 days, Refills 4. L AB: P-Comprehensive Metabolic Panel (CMP) (Collection Date & Time - 03/06/2025 02:54 PM) g kuc 111, Ca 10.5, alk phos 139 Value Reference Range A /G Ratio 1.6 1.1-2.5 - * A lbumin 4.0 3.5-5.3 - g/dL * A lkaline Phosphatase 139 H 35-121 - IU/L * A LT (SGPT) 16 <5-47 - IU/L * A ST (SGOT) 15 <5-40 - IU/L * B ilirubin, Total 0.4 <0.2-1.2 - mg/dL * B UN 15 8-23 - mg/dL * C alcium 10.5 H 8.6-10.4 - mg/dL * C hloride 104 97-108 - mmol/L * C O2 27 22-32 - mmol/L * C reatinine 0.79 0.50-1.00 - mg/dL * G lucose 111 H 65-99 - mg/dL * P otassium 4.1 3.5-5.3 - mmol/L * S odium 141 135-145 - mmol/L * P rotein 6.5 6.0-8.3 - g/dL * e GFR by Creatinine 80 >59 - mL/min/1.73m2 ?LAB: P-Hemoglobin A1C (Collection Date & Time - 03/06/2025 02:54 PM)?5.9* Value Reference Range H emoglobin A1C 5.9 H <5.7 - % * Labs: * L ab: Estimated Average Glucose (Collection Date & Time - 03/06/2025 02:54 PM) 1 23 Value Reference Range E stimated Average Glucose 123 - mg/dL * [facility], IT support 03/07/2025 04:10:08 : This order was created by the Interface. * Procedure Codes: G 2211 Complex e/m visit add on, 1036F TOBACCO NON-USER, 3044F HG A1C LEVEL LT 7.0%, G8950 PREHTN/HTN BP DOC INDCD F/U DOC, G8752 MOST RECENT SYSTOLIC BP < 140MM HG, G8754 MOST RECENT DIASTOLIC BP < 90MM HG * Follow Up: 4 Weeks * Images: Billing Information: * Visit Code: 59083 Office Visit, Est Pt., Level 4. * Procedure Codes: G2211 Complex e/m visit add on. 1036F TOBACCO NON-USER. 3044F HG A1C LEVEL LT 7.0%. G8950 PREHTN/HTN BP DOC INDCD F/U DOC. G8752 MOST RECENT SYSTOLIC BP < 140MM HG. G8754 MOST RECENT DIASTOLIC BP < 90MM HG. * Electronic signature of Yennifer Ventura MD on 04/07/2025 at 12:56 PM EDT Sign off status: Pending * Provider: Yennifer Ventura M.D. Date: 0 03/06/2025 Generated for Ken vidal/Anusha/Emersonransmitting on: 0 04/07/2025 12:56 PM EDT History and Physical Notes * HPI (History of Present Illness) Category Sub-Category Detail Notes Category Not es Cardiology Short of Breath with exertion Chest Pain Palpitations Dizziness Fatigue worse with exertion Examination Category Sub-Category Detail Notes Category Not es General Examination Heart: irregular rhythm, 100 Lungs: clear to auscultatio n Abdomen: obese, soft and nont umesh, no organomegaly or masses Extremities: 3+ leg edema General Appearance: NAD, Speaks in compl ete sentences, Color good. Note weight. Skin: normal, pretibial st asis rash on right Neurologic Exam: uses a walker Neck: supple, no lymphaden opathy Peripheral pulses: normal Chest: normal shape and exp ansion
--- OUTSIDE RECORDS SUMMARY | 2025-03-12 10:10 | XMS_ITS ---
Author Organization [facility] Address [address] [place] [address] [address] [place] [id number] Care Team Providers Care Field Technical Support Consultant Name Role Phone Yennifer Ventura Primary Care Provider REASON FOR VISIT BD, Mammo and CCS Encounters Encounter Location Date Provider Diagnosis [facility] [address] [facility] [address] [facility] [address] [place] [id number] 03/12/2025 Yennifer Ventura Screening for colon cancer [...] Assessment Notes Screening for colon cancer refused Pending Test Test Name Order Date Bone density 03/12/2025 Mammogram 03/12/2025 Next Appt Details Provider Name:Yennifer Ortiz er, 07/21/2025 02:15:00 PM, [address] [facility] [address] [facility], [address], [place], [id number], Progress Notes * HIEU ANUELHEMANTHB:1955 (69 yo F)Acc No.[id number]:03/12/2025 Patient: BALDO FERRER :1955 A ge:69 Y S ex:Female Address:[address] [place], [place] [address] [address] Subjective: * Chief Complaints: * B D, [...] maging: Mammogram 3.?Screening for osteoporosis?Imaging: Bone density* Connie Giraldo 03/12/2025 03:4 8:46 PM EDT > Sent to [facility] [place] for Referral to [facility] * Procedure Codes: * true * Date: Generated for Ken vidal/Anusha/Rosaitting on: 0 04/07/2025 12:56 PM EDT
--- OUTSIDE RECORDS SUMMARY | 2025-03-17 11:00 | XMS_ITS | Encounter Summary ---
Author Organization [facility] Address [address] [place] [address] Care Team Providers Care Label Stamper Name Role Phone Osito Ventura MD Primary Care Provider [phone] Osito Ventura MD Unavailable [phone] Reason for Referral * Consultation (Routine) - Authorized Specialty Diagnoses / Procedures Referred By Marie ball Referred To Contact Diagnoses Persistent atrial fibrillation (CMS/HCC) Yaz Leone APRN [address] [place] [address] Phone: tel: fax: Referral ID Status Reason Start Date Expiration Date V isits Requested Visits Authorized [id number] Authorized 03/17/2025 09/16/2026 1 1 Encounter Details Date Type Department Care Team (Latest Contact Info) Description 03/17/2025 11:00 AM EDT Office Visit [facility] [place] [address] [facility], [address] [place] [id number] Yaz Leone APRN [address] [place] [address] Persistent atrial fibrillation (CMS/HCC) (Primary Dx); Morbid obesity (CMS/HCC); Essential hypertension; Hyperlipidemia, unspecified hyperlipidemia type; Diabetes mellitus type II, non insulin dependent (CMS/HCC); LYLE (obstructive sleep apnea); On continuous oral anticoagulation Social History Tobacco Use Types Packs/Day Years Used Date Smoking Tobacco: Never Smokeless Tobacco: Never Tobacco Cessation:Counseling Given: No Alcohol Use Standard Drinks/Week Comments Yes 0 [...] relatives? Three times a week 07/17/2023 Attends [employer] Not on file 07/17 Active Member [...] and heating? Not hard at all 07/17/2023 PHQ-2 Answer Date Recorded Patient Health Questionnaire-2 Score 1 03/17/2025 [place] [facility] - Occupational Stress [...] money to buy more. Never true 07/17/20 Within the past 12 months, t he [...] place to sleep or slept in a detention (including now)? No 07/17/2023 PHQ-9 Answer Date Recorded Patient Health Questionnaire-9 Score 10 03/17/2025 Utilities Answer Date Recorded In the past [...] on file documented as of this encounter Last Filed Vital Signs Vital Sign Reading Time Taken Comments Blood Pressure 128/90 03/17/2025 11:28 AM EDT Pulse 98 03/17/2025 11:08 AM EDT Temperature - - Respiratory Rate - - Oxygen Saturation 96% 03/17/2025 11:08 AM EDT Inhaled Oxygen Concentration - - Weight 144 kg (317 lb 3.9 oz) 03/17/2025 11:08 A M EDT Height - - Body Mass Index 52.79 10/27/2023 1:28 PM EST documented in this encounter Functional Status * Over the past 2 weeks, how often have you been bothered by any of the following problems? Question Answer Date of Assessment Author Little interest or pleasure in doing things Not at all 03/17/2025 11:21 AM Kristine Alfaro RN Feeling down, depressed, or hopeless Several days 03/17/2025 11:21 AM Kristine Alfaro RN Patient Health Questionnaire-2 Score 1 03/17/2025 11:21 AM Kristine Alfaro RN * Question Answer Date of Assessment Author Trouble falling or staying asleep, or sleeping too much Nearly every day 03/17/2025 11:21 AM Kristine Alfaro RN Feeling tired or having little energy Nearly every day 03/17/2025 11:21 AM Kristine Alfaro RN Poor appetite or overeating Nearly every day 03/17/2025 11:21 AM Kristine Alfaro RN Feeling bad about yourself - or that you are a failure or have let yourself or your family down Not at all 03/17/2025 11:21 AM Kristine Alfaro RN Trouble concentrating on things, such as reading the newspaper or watching television Not at all 03/17/2025 11:21 AM Kristine Alfaro RN Moving or speaking so slowly that other people could have noticed? Or the opposite - being so fidgety or restless that you have been moving around a lot more than usual. Not at all 03/17/2025 11:21 AM Kristine Alfaro RN Thoughts that you would be better off or hurting yourself in some way Not at all 03/17/2025 11:21 AM EDT Bobby, Kristine M, RN Patient Health Questionnaire-9 Score 10 03/17/2025 11:21 AM EDT Kristine Rosales, RN * If you checked off any problems on this questionnaire so far, Question Answer Date of Assessment Author How difficult have these problems made it for you to do your work, take care of things at home, or get along with other people? Not difficult at all 03/17/2025 11:21 AM EDT Kristine Rosales, RN * How difficult have these problems made it for you to do your work, take care of things at home, or get along with other people? Answer Date of Assessment Author Not difficult at all 03/17/2025 11:21 AM EDT Kristine Alcocer RN documented as of this encounter Miscellaneous Notes * Patient Instructions - Yaz Leone APRN - 03/17/2025 11:00 AM EDT Recommend continued monitoring of home bp--record results --and bring to every follow up visit for review. * Progress Notes - Yaz Leone APRN - 03/17/2025 11:00 AM EDT Paty Farias is a 69 y.o. female who presents to [facility] [place] for follow up after Dr. Anjali Trujillo visit 10-27-23. PMH: paroxysmal atrial fibrillation, HTN, HLD, overweight, LYLE, DM2. Ms. Farias was diagnosed with A. Fib by her PCP approx 4 yr ago. She was admitted for bre time and started on Metoprolol, Xarelto. During admission had A. Fib with RVR into 170s, likely triggeredby pulm nidus (RSV, pneumonia). At last visit with Dr. Luna, her metoprolol dose was increased to 150 gm daily. She was recommended to wear ZIO which was completed 10-27-23. She wore zio x 3 days: 10 hrs that showed 100% A. Fib withavg rate 84 bpm and range drom 53-120 bpm. Her losartan dose was increased at last visit to 50 mg daily due to uncontrolled HTN. She was recommended to follow up with sleep medicine due to LYLE untreated. No recent labs to review. Today: Ms. Farias explains that she missed her follow up visit with Dr. Luna due to transportation issues. She ran out of her metoprolol x few days, but then her PCP refilled. She experienced severe fatigue while out of her metoprolol. Since she restarted her metoprolol, she denies palpations. Her PCP completed EKG that showed A. Fib and told her to follow up in this clinic. She checks her home bp with readings: 130/90?. No home bp log. She is taking Lasix 60 mg daily by her PCP for lower extremity edema. She explains that her PCP checks her labs regularly. She elevates her lower extremities. No added salt to diet. She has not followed up sleep medicine as recommended at last visit. She was diagnosed with LYLE in the past, but denies using CPAP. No exercise, due to fatigue and dyspnea with exertion. She completed physical therapy after her hospitalization, but no longer does her exercises. 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 She has difficulty getting up out of chair due to leg weakness. She is using a cane to assist with ambulation. SOA with exertion. ADLS without stopping to rest. Most strenuous activity at home: she can walk up flight of stairs, but must pull herself up by the handrail. On . And explains she has lost weight, unaware of how much. Last A1c? But good per her recall She denies follow up with pulm. She stopped using her rescue MDI as she does not like how it makes her feel. She explains that she has not returned to her baseline normal since hospitalization with RSV. Denies abnormal bleeding with OAC. Patient denies chest pain with exertion, palpitations, lightheadedness, syncope, orthopnea. Review of symptoms 14 Point ROS reviewed and is otherwise negative except as per HPI. Past Medical History Past Medical History[1] Surgical History Surgical History[2] Family History family history includes Breast cancer in her sister, sister and another family member; Diabetes type II in her sister and another family member. Social History reports that she has never smoked. She has never used smokeless tobacco. She reports current alcohol use. No history on file for drug use. Medications Current Medications[3] Physical Exam Constitutional: Appearance: Normal appearance. Morbidly obese Cardiovascular: Rate and Rhythm: Normal rate and regular rhythm. Heart sounds: Normal heart sounds. Pulmonary: Effort: Pulmonary effort is normal. Breath sounds: Normal breath sounds. Skin: General: Skin is warm and dry. Non-pitting lower extremities that are very large, soft. Neurological: General: No focal deficit present. Poor recall Mental Status: She is alert and oriented to person, place, and time. Psychiatric: Mood and Affect: Mood normal. Behavior: Behavior normal. Blood pressure (!) 142/101, pulse 98, weight 144 kg (317 lb 3.9 oz), SpO2 96%. Imaging No echocardiogram results found for the past 12 months Labs Lab Results Component Value Date HGB 11.1 (L) 07/23/2023 HCT 36.5 07/23/2023 PLT 339 07/23/2023 TRIG 323 (H) 07/13/2023 ALT 22 07/12/2023 AST 28 07/12/2023 NA 136 07/23/2023 K 3.8 07/23/2023 CREATININE 0.71 07/23/2023 BUN 17 07/23/2023 CO2 28 07/23/2023 TSH 1.01 07/12/2023 INR 1.7 (H) 07/12/2023 HGBA1C 6.0 (H) 07/12/2023 Assessment and Plan Persistent Atrial Fib: Reviewed ZIO 10-27-23. She wore zio x 3 days: 10 hrs that showed 100% A. Fib with avg rate 84 bpm andrange drom 53-120 bpm. Recommend continued Metoprolol succ 150 mg and OAC COLLINS: Requesting referral to specific multi operation forming machine setter, but cannot recall name. She recalls the pulm as being a friend of her son, and does not wish to have referral to pulm other than this particular person. Obesity with BMI 52 compounding problem No current pulm follow up HTN: Recheck bp while in clinic and improved to 120/90. She has not taken her Lasix this a.m. due to traveling. Recommend continued monitoring of home bp--record results --and bring to every follow up visit for review. No change in current doxazosin, losartan, metoprolol. HLD: status unknown Requesting lab results from PCP, but have not received Continues with atorvastatin 40 mg daily LYLE:untreated Recommended again to follow up with sleep medicine as LYLE could be contributing to dyspnea DM2:status unknown: Advised appropriate glycemic control as DM negatively impacts CV health. Obesity BMI 52: Advised aggressive weight loss to target BMI. Also suspect deconditioning may be factor Recommend PCP consider physical therapy for strength and stability F/u with Dr. Anjali Luna in 6m or sooner if needed A total time of 60 minutes was spent by MD and SAROJ addressing the current illness, reviewing records (prior imaging, lab work, etc), and formulating a plan. The patient is agreeable to the plan and all pertinent questions were answered. Yaz Leone APRN [1] Past Medical History: Diagnosis Date Essential (primary) hypertension High blood pressure Gastro-esophageal reflux disease without esophagitis Acid reflux Heart disease, unspecified Heart problem Heartburn Heartburn Migraine, unspecified, not intractable, without status migrainosus Migraine headache Pure hypercholesterolemia, unspecified High cholesterol Sleep apnea, unspecified Sleep apnea Unspecified asthma, uncomplicated Asthma Unspecified osteoarthritis, unspecified site Arthritis [2] Past Surgical History: Procedure Laterality Date ADENOIDECTOMY N/A Adenoidectomy from [facility] APPENDECTOMY N/A Appendectomy from [facility] APPENDECTOMY N/A Appendix surgery from [facility] CHOLECYSTECTOMY N/A Cholecystectomy from [facility] CYST REMOVAL N/A Cyst removal from [facility] GALLBLADDER SURGERY N/A Gallbladder surgery from [facility] HERNIA REPAIR N/A Hernia Repair from [facility] HERNIA REPAIR N/A Hernia repair from [facility] SKIN LESION EXCISION N/A skin lesion excision from [facility] TONSILLECTOMY N/A Tonsillectomy from [facility] TONSILLECTOMY N/A Tonsillectomy from [facility] [3] Current Outpatient Medications Medication Sig Dispense Refill acetaminophen (Tylenol) 325 MG tablet Take 2 tablets (650 mg) by mouth every 4 (four) hours if needed for fever (for temperature > 38.5). 100 tablet 0 atorvastatin (Lipitor) 40 MG tablet Take 1 tablet (40 mg) by mouth every night. 30 tablet 0 benzonatate (Tessalon) 100 MG capsule Take 1 capsule (100 mg) by mouth 3 (three) times a day if needed for cough. Do not crush or chew. Breo Ellipta 200-25 MCG/ACT aerosol powder Inhale 1 puff 1 (one) time each day. doxazosin (Cardura) 2 MG tablet Take 1 tablet (2 mg) by mouth every night. Famotidine (PEPCID PO) Take by mouth if needed. fluticasone (Flonase) 50 MCG/ACT nasal spray Administer 2 sprays into each nostril 1 (one) time each day. folic acid (Folvite) 1 MG tablet Take 1 tablet (1,000 mcg) by mouth 1 (one) time each day. furosemide (Lasix) 20 MG tablet Take 3 tablets (60 mg) by mouth 1 (one) time each day. 90 tablet 0 GNP Vitamin D Super Strength 125 MCG (5000 UT) tablet Take 1 tablet (5,000 Units) by mouth 1 (one) time each day. hydrOXYzine pamoate (Vistaril) 25 MG capsule Take 1 capsule (25 mg) by mouth every 6 (six) hours ifneeded for anxiety for up to 10 days. 30 capsule 0 Jardiance 10 MG Take 1 tablet (10 mg) by mouth 1 (one) time each day. losartan (Cozaar) 25 MG tablet TAKE TWO TABLETS BY MOUTH EVERY DAY 60 tablet 2 MELATONIN PO Take by mouth at night if needed. metoprolol succinate XL (Toprol-XL) 100 MG 24 hr tablet Take 1.5 tablets (150 mg) by mouth daily. 45 tablet 2 Mounjaro 2.5 MG/0.5ML solution pen-injector solution pen-injector Inject 0.5 mL (2.5 mg) under the skin 1 (one) time per week. SENNA PO Take by mouth 1 (one) time each day if needed. Xarelto 20 MG tablet Take 1 tablet (20 mg) by mouth 1 (one) time each day. No current facility-administered medications for this visit. documented in this encounter Plan of Treatment Upcoming Encounters Date Type Department Care Team (Late st Contact Info) Description 07/01/2025 10:40 AM EDT Office Visit [facility] [place] [address] [facility], [address] [place] [address] Joni Trujillo MD [address] [place] [id number] 09/16/2025 2:20 PM EST Office Visit [facility] [place] [address], [address] [place] [address] Joni Trujillo MD [address] [place] [address] Scheduled Referrals Name Type Priority Associated Diagnoses Orde r Schedule Follow Up Cardiology Outpatient Referral Routine Persistent atrial fibrillation (CMS/HCC) Expected: 09/16/2025, Expires: 09/16/2026 documented as of this encounter Visit Diagnoses Diagnosis Persistent atrial fibrillation (CMS/HCC)- Primary Atrial fibrillation Morbid obesity (CMS/HCC) Morbid obesity Essential hypertension Unspecified essential hypertension Hyperlipidemia, unspecified hyperlipidemia type Diabetes mellitus type II, non insulin dependent (CMS/HCC) Type II or unspecified type diabetes mellitus without mention of complication, not stated as uncontrolled LYLE (obstructive sleep apnea) Obstructive sleep apnea (adult) (pediatric) On continuous oral anticoagulation documented in this encounter Additional Health Concerns Infection Onset Date Last Indicated Resolved Time 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
--- OUTSIDE RECORDS SUMMARY | 2025-04-03 09:30 | XMS_ITS ---
Author Organization [facility] Address [address] [facility] [address] [place] [id number] Care Team Providers Care Healthcare Administrative Assistant Name Role Phone Yennifer Ventura Primary Care Provider Allergies Allergen (clinical drug ingredient) Drug/Non Drug Allergy documented on EMR Reaction Allergy Type Onset Date Status levofloxacin levoFLOXacin tendon pain Drug Allergy Active Results Component Value Reference Range Notes P-Vitamin B12 (Not yet revie wed by provider) Interpretation:1491 Performing Lab: Notes/Report: Test performed by [facility] [address] [place] [address] , [place] [address] Wei Cline MD, Network Engineer Administrator CLIA: [id number] Vitamin B12 7650 352-6252 pg/mL P-Basic Metabolic Panel (BMP ) (Not yet reviewed by provider) Interpretation:gluc 100, Ca 10.8 Performing Lab: Notes/Report: Test performed by [facility] [address] [place] [address] , [address], [place] [address] Wei Cline MD, Network Engineer Administrator CLIA: [id number] Sodium 142 135-145 mmol/L Potassium 5.0 3.5-5.3 mmol/L Chloride 104 97-108 mmol/L CO2 28 20-32 mmol/L Glucose 100 65-99 mg/dL BUN 11 8-23 mg/dL Creatinine 0.77 0.50-1.00 mg/dL Calcium 10.8 8.6-10.4 mg/dL eGFR by Creatinine 82 >59 mL/min/1.73m2 P-Parathyroid Hormone (PTH) Intact (Not yet reviewed by provider) Interpretation:107 Performing Lab: Notes/Report: Test performed by [facility] [address] [place], [place] [address] , [address], [place] [address] Wei Cline MD, Network Engineer Administrator CLIA: [id number] Parathyroid Hormone (PTH) Intact 107.0 15.0-65. 0 pg/mL Reason For Referral Reason weakness Diagnosis 1 Generalized weakness (R53.1) [facility] Referring Provider First Name Yennifer Leal Referring Provider Last Name Lorenzo Referring Provider Speciality Family Pra ctice Referred Provider Specialty Physical The rapist Referral Priority Routine REASON FOR VISIT 4 weeks, f/u labs from previous visit and abnormal EKG results Medications Medication SIG (Take, Route, Frequency, Duration) Notes Start Date End Date Status Jardiance 10 mg TAKE ONE TABLET BY MOUTH EVERY DAY; Duration: 30 days Not-Taking hydrOXYzine HCl 25 mg TAKE ONE TABLET BY MOUTH THREE TIMES DAILY NEEDED MAY CAUSE DROWSINESS; Duration: 30 Not-Taking Irbesartan 300 mg TAKE ONE TABLET BY MOUTH EVERY DAY; Duration: 30 Not-Taking dilTIAZem HCl ER Beads 360 MG TAKE ONE CAPSULE BY MOUTH EVERY DAY; Duration: 30 Not-Taking B-12 1000 MCG 1 tab(s) orally once a day; Duration: 30 day(s) 05/07/2020 Active Losartan Potassium 100 MG 1/2 Orally bedtime; Duration: 30 days 11/11/2024 Active Xarelto 20 mg 1 tablet orally once daily; Duration: 30 days Active Breo Ellipta 200-25 MCG/ACT INHALE 1 PUFF BY MOUTH EVERY DAY; Duration: 30 days Active Metoprolol Succinate ER 100 mg TAKE ONE AND HALF TABLETS BY MOUTH EVERY DAY; Duration: 30 days Active Mounjaro 7.5 MG/0.5ML as directed Subcutaneous weekly 03/06/2025 Active Acetaminophen 325 MG 1 tablet as needed Orally every 4 hrs Active Pepcid 20 MG 1 tab(s) orally prn Active Melatonin 3 MG 1 tablet at bedtime as needed Orally Once a day; Duration: 30 day(s) Active Atorvastatin Calcium 40 mg 1 tablet Orally Once a day; Duration: 30 days Active Doxazosin Mesylate 2 MG 1 tab(s) orally At Bed Time; Duration: 30 days patient needs appt Active Senna-Docusate Sodium 8.6-50 MG 1 tablet as needed Orally Twice a day Active MiraLax 17 GM/SCOOP 1 scoop mixed with 8 ounces of fluid Orally Once a day; Duration: 30 day(s) Active Furosemide 80 MG 1 tablet Orally Once a day; Duration: 30 day(s) 11/11/2024 Active Problems Problem Type SNOMED Code ICD Code Onset Dates Problem Status W/U Status Risk Notes Problem Hypercalcemia (84267042) Hypercalcemia (E83.52) Active confirmed Vital Signs Weight 315.2 lbs 04/03/2025 Blood pressure systolic 118 mm Hg 04/03/20 25 Blood pressure diastolic 90 mm Hg 025 Heart Rate 84 /min 04/03/2025 Height 64.75 in 04/03/2025 BMI 52.85 kg/m2 04/03/2025 Encounters Encounter Location Date Provider Diagnosis [facility] [address] [facility] [address] [place], [place] [id number] 04/03/2025 Yennifer Ventura Essential hypertensi on I10 ; Persistent atrial fibrillation I48.19 ; Obesity, morbid, BMI 50 or higher E66.01 ; Type 2 diabetes mellitus without complication, without long-term current use of insulin E11.9 ; Vitamin B12 deficiency E53.8 ; Generalized weakness R53.1 and Hypercalcemia E83.52 Assessments Encounter Date Diagnosis (ICD Code) Assessment Notes Treatment Notes Treatment Clinical Notes Section Notes 04/03/2025 Essential hypertension (ICD-10 - I10) 04/03/2025 Persistent atrial fibrillation (ICD-10 - I48.19) 04/03/2025 Obesity, morbid, BMI 50 or higher (ICD-10 - E66.01) 04/03/2025 Type 2 diabetes mellitus without complication, without long-term current use of insulin (ICD-10 - E11.9) 04/03/2025 Vitamin B12 deficiency (ICD-10 - E53.8) 04/03/2025 Generalized weakness (ICD-10 - R53.1) 04/03/2025 Hypercalcemia (ICD-10 - E83.52) Plan Of Treatment Pending Test Test Name Order Date P-Vitamin B12 04/03/2025 P-Basic Metabolic Panel (BMP) 04/03/2025 P-Parathyroid Hormone (PTH) Intact 04/03 Referrals Referral Date Details 04/03/2025 04/03/2025, weakness Next Appt Details Follow Up: 3 Months, Reason: Provider Name:Yennifer Ortiz er, 07/21/2025 02:15:00 PM, [address], [address], [place], [place], [id number], Progress Notes * BARB HAGENB:1955 (69 yo F)Acc No.[id number]:04/03/2025 Progress Notes Patient: BALDO FERRER Provider: Yennifer Ventura M.D. :1955 A ge:69 Y S ex:Female Date:04/03/2025 Address:[address] [place] [address] [address], [place], [id number] Subjective: * Chief Complaints: * 1 . 4 weeks, f/u labs from previous visit and abnormal EKG results. * HPI: C ardiology: The pt is here for a follow up on persistent a fib and to discuss weight loss. Pt states she is doing good with the increase in the Monjaro. Pt states her weight is down. Pt states she would like to discuss her recent lab studies. See pt labs. 69 year old female presents with c/o Chest Pain e pisodic.? c/o Palpitations. Denies : Short of Breath. D enies : Dizziness. * ROS: D ERMATOLOGY: no R garry. n o H nafisa. G ASTROENTEROLOGY: no N ausea. n o V omiting. n o D iarrhea.? U ROLOGY: no D ifficulty urinating. n o B lood in urine. * Medical History: H ypertension, Hyperlipidemia, Asthma, weight induced, [place] palsy, Atrial fibrillation, COVID vaccine Nov 2020, [...] , Determination:, occasional. * Medications: T aking Furosemide 80 MG Tablet 1 tablet Orally [...] needed Orally Once a day , Taking Pepcid 20 MG Tablet 1 tab(s) orally prn , Taking Doxazosin Mesylate 2 MG Tablet 1 tab(s) orally At Bed Time , Notes to Pharmacist: patient needs appt, Taking Atorvastatin Calcium 40 mg Tablet 1 tablet Orally Once a day , Taking Breo Ellipta 200-25 MCG/ACT Aerosol Powder Breath Activated INHALE 1 PUFF BY MOUTH EVERY DAY , Taking Xarelto 20 mg Tablet 1 tablet orally once daily , Taking Mounjaro 7.5 MG/0.5ML Solution Auto-injector as directed Subcutaneous weekly , Taking Metoprolol Succinate ER 100 mg Tablet Extended Release 24 Hour TAKE ONE AND HALF TABLETS BY MOUTH EVERY DAY , Taking Losartan Potassium 100 MG Tablet 1/2 Orally bedtime , Taking B-12 1000 MCG Tablet 1 tab(s) orally once a day , Not-Taking hydrOXYzine HCl 25 mg Tablet TAKE ONE TABLET BY MOUTH THREE TIMES DAILY NEEDED MAY CAUSE DROWSINESS , Not-Taking Jardiance 10 mg Tablet TAKE ONE TABLET BY MOUTH EVERY DAY , Not-Taking dilTIAZem HCl ER Beads 360 MG Capsule Extended Release 24 Hour TAKE ONE CAPSULE BY MOUTH EVERY DAY , Not- Taking Irbesartan 300 mg Tablet TAKE ONE TABLET BY MOUTH EVERY DAY , Medication List reviewed and reconciled with the patient * Allergies: l evoFLOXacin: tendon pain. Objective: * Vitals: W t: 315.2, Temp: 97.6, BP: 118/90, HR: 84, O2 Sat: 98% on RA, Nurse: VANDANA, Ht: 64.75, BMI:52.85. * Examination: G eneral Examination: General Appearance: N AD, Speaks in complete sentences, Color good. Note weight. . N josselin: s upple, no lymphadenopathy. C hest:?normal shape and expansion. H eart: irregular rhythm, 84. L ungs: c lear to auscultation. A bdomen: obese, soft and nontender, no organomegaly or masses. N eurologic Exam: u ses a walker. S kin: n ormal, pretibial stasis rash on right. P eripheral pulses: n ormal . E xtremities: 3+ leg edema, but improved. Assessment: * Assessment: 1. P ersistent atrial fibrillation - I48.19 (Primary) 2 . E ssential hypertension - I10 3 . O besity, morbid, BMI 50 or higher - E66.01 4 .?Type 2 diabetes mellitus without complication, without long-term current use of insulin - E11.9 5 . V itamin B12 deficiency - E53.8 6 . G eneralized weakness - R53.1 7 . H ypercalcemia - E83.52 Plan: * Treatment: Value Reference Range B UN 11 8-23 - mg/dL * C alcium 10.8 H 8.6-10.4 - mg/dL * C hloride 104 97-108 - mmol/L * C O2 28 20-32 - mmol/L * C reatinine 0.77 0.50-1.00 - mg/dL * G lucose 100 H 65-99 - mg/dL * P otassium 5.0 3.5-5.3 - mmol/L * S odium 142 135-145 - mmol/L * e GFR by Creatinine 82 >59 - mL/min/1.73m2 2.?Vitamin B12 deficiency?LAB: P-Vitamin B12 (Collection Date & Time - 04/03/2025 01:18 PM)?1491* Value Reference Range V itamin B12 1491 H 232-1245 - pg/mL 3.?Generalized weakness? Referral To:Physical Therapist ?Reason:weakness 4.?Hypercalcemia?LAB: P-Parathyroid Hormone (PTH) Intact (Collection Date & Time - 04/03/2025 01:18 PM)?107* Value Reference Range P arathyroid Hormone (PTH) Intact 107.0 H 15.0-65. 0 - pg/mL * Follow Up: 3 Months * Images: Billing Information: * Visit Code: 42088 Office Visit, Est Pt., Level 4. * Procedure Codes: * Electronic signature of Yennifer Ventura MD on 04/07/2025 at 12:56 PM EDT Sign off status: Pending * Provider: Yennifer Ventura M.D. Date: 04/03/2025 Generated for Ken vidal/Anusha/Emersonransmitting on: 0 04/07/2025 12:56 PM EDT History and Physical Notes * HPI (History of Present Illness) Category Sub-Category Detail Notes Category Not es Cardiology Short of Breath Chest Pain episodic Palpitations Dizziness Examination Category Sub-Category Detail Notes Category Not es General Examination Heart: irregular rhythm, 84 Lungs: clear to auscultatio n Abdomen: obese, soft and nont umesh, no organomegaly or masses Extremities: 3+ leg edema, but im proved General Appearance: NAD, Speaks in compl ete sentences, Color good. Note weight. Skin: normal, pretibial st asis rash on right Neurologic Exam: uses a walker Neck: supple, no lymphaden opathy Peripheral pulses: normal Chest: normal shape and exp ansion Consultation Request Notes Referral Date Referring Provider Referred Provider Not es 04/03/2025 Yennifer Ventura , weakness
--- NOTE | 2025-04-07 12:56 | MM_ITS ---
PROCEDURE INFORMATION: Exam: MG Bilateral Screening 3D Mammography Exam date and time: 04/07/2025 1:35 PM Age: 69 years old Clinical indication: Screening examination TECHNIQUE: Imaging protocol: Bilateral Screening tomosynthesis and 2D mammography including computer-aided detection (CAD) when performed. COMPARISON: 1. MG MM DIG SCREENING MAMM BI W/CAD 05/08/2020 8:28 AM 2. MG DIG MAMM-SCREEN MAMTA 01/25/2019 10:11 AM FINDINGS: MAMMOGRAPHY: Breast composition: There are scattered areas of fibroglandular density. Mass: No suspicious masses. Architectural distortion: None. Calcifications: No suspicious calcifications. Asymmetric density: None. Skin thickening: None. Axillary adenopathy: None. IMPRESSION: No mammographic evidence of malignancy. Annual screening is recommended unless otherwise clinically indicated. ASSESSMENT: BI-RADS Category 1: Negative.
--- NOTE | 2025-04-07 12:56 | XR_ITS ---
FINAL REPORT CLINICAL HISTORY: screening COMPARISON: None FINDINGS: Using L1-4, the bone mineral density of the spine is 1. 214 g/cm2, corresponding to T-score of 1.5. Using the left hip, the bone mineral density of the femoral neck is 0.707 g/cm2, corresponding to a T-score of -1.3. Using the right hip, the bone mineral density of the femoral neck is 0.841 g/cm2, corresponding to a T-score of -0.1. NOTE: T-score: Standard deviation compared with peak bone mass of young adult mean. *Following the recommendations of the International Society of Bone densitometry, classification of hip BMD is based on the lower of two T-scores; total hip or femoral neck. IMPRESSION: Normal bone mineral density of the right hip and lumbar spine. Diminished bone mineral density of the left femoral neck, consistent with osteopenia. Reviewed, Interpreted and Dictated by Yumiko Oliva MD Transcribed by Nella Oliver Authenticated and [facility]
--- OUTSIDE RECORDS SUMMARY | 2025-04-07 12:56 | XMS_ITS | Clinical Summary ---
[facility] Organization [facility] Address [address] [place] [address] Care Team Providers Care Ecological Technical Officer Name Role Phone Unavailable Primary Care Provider Unavailabl e Social History Tobacco Use Types Packs/Day Years Used Date Smoking Tobacco: Never Assessed Abuse Screen Answer Date Recorded Unsafe at Home or Work/School Not on file Feels Threatened by Someone? Not on file 05/2023 Does Anyone Keep You from Co ntacting Others or Doint Things Outside the Home? Not on file 06/26/2023 Physical Sign of Abuse Present Not on file 1 Housing Stability Answer Date Recorded Current Living Arrangements Not on file 05/2023 Potentially Unsafe Housing Conditions Not on valery e 06/26/2023 Family and Community Support Answer Bernardo e Recorded Help with Day-to-Day Activities Not on file 06/26/2023 Lonely or Isolated Not on file 06/26/2023 Employment Answer Date Recorded Do you want help finding or keeping work or a oscar b? Not on file 06/26/2023 Disabilities Answer Date Recorded Concentrating, Remembering, or Making Decisions Difficulty Not on file 06/26/2023 Doing Errands Independently Difficulty Not on fi le 06/26/2023 Education Answer Date Recorded Help with school or training? Not on file Preferred Language Not on file 06/26/2023 Comments Unknown Sex and Gender Information Value Date Recorded Sex Assigned at Not on file Legal Sex Female 11:57 AM EDT Gender Identity Not on file Sexual Orientation Not on file Plan of Treatment Health Maintenance Due Date Last Done Comments ANNUAL PHYSICAL 1955 DXA SCAN 1955 HEPATITIS C SCREENING 1955 TDAP/TD VACCINES (1 - Tdap) 1972 MAMMOGRAM 1993 COLOGUARD 1998 COLON CANCER SCREENING 5 YEAR SIGMOIDOSCOPY 1998 COLONOSCOPY 1998 COLORECTAL CANCER SCREENING 1998 CT COLONOGRAPHY 1998 FECAL OCCULT BLOOD TEST 1998 FIT Testing (1 year) 1998 Pneumococcal Vaccine 50+ (1 of 1 - PCV) 2003 ZOSTER VACCINE (1 of 2) 2003 COVID-19 Vaccine (1 - 2023- season) 2024 INFLUENZA VACCINE 06/18/2025
--- OUTSIDE RECORDS SUMMARY | 2025-04-07 12:56 | XMS_ITS | Clinical Summary ---
Author Organization [facility] Address [address] [place] [address] Care Team Providers Care Pie Crimping Machine Operator Name Role Phone Osito Ventura MD Primary Care Provider [phone] Osito Ventura MD Unavailable [phone] Allergies No known active allergies Medications [...] Encounters Date Type Department Care Team Description 03/17/2025 11:00 AM EDT Office Visit [facility] [place] [address] [facility], [address] [place] [address] Yaz Leone APRN Persistent atrial fibrillation (CMS/HCC) (Primary Dx); Morbid obesity (CMS/HCC); Essential hypertension; Hyperlipidemia, unspecified hyperlipidemia type; Diabetes mellitus type II, non insulin dependent (CMS/HCC); LYLE (obstructive sleep apnea); On continuous oral anticoagulation 03/17/2025 Travel 03/12/2025 Telephone [facility] [address], [address] [place] [address] Joni Trujillo MD HCN - Patient Message 03/01/2025 Refill [facility] [address], [address] [place] [address] Joni Trujillo MD Atrial fibrillation, unspecified type ([facility]/HCC) 02/28/2025 Refill [facility] [address], [address] [place] [address] Joni Trujillo MD Atrial fibrillation, unspecified type ([facility]/HCC) 02/21/2025 Refill [facility] [address], [address] [place] [address] Joni Trujillo MD Atrial fibrillation, unspecified type ([facility]) from Last 3 Months Immunizations Immunization Administration [...] relatives? Three times a week 07/17/2023 Attends [employer] Not on file 07/17 Active Member [...] Recorded Patient Health Questionnaire-2 Score 1 03/17/2025 [facility] - Occupational Stress [...] place to sleep or slept in a fdc (including now)? No 07/17/2023 PHQ-9 Answer Date [...] Pulse 98 03/17/2025 11:08 AM EDT Temperature 36.5 C (97.7 F) 07/25/2023 12:08 PM EST Respiratory Rate 18 07/25/2023 3:49 AM EST Oxygen Saturation 96% 03/17/2025 11:08 AM EDT Inhaled Oxygen Concentration - - Weight 144 kg (317 lb 3.9 oz) 03/17/2025 11:08 A M EDT Height 165.1 cm (5' 5 ) 10/27/2023 1:28 PM EST Body Mass Index 52.79 10/27/2023 1:28 PM EST Plan of Treatment Upcoming Encounters Date Type Department Care Team (Late st Contact Info) Description 07/01/2025 10:40 AM EDT Office Visit [facility] [address] [facility], [address] [place] [address] Joni Trujillo MD [address] [place] [address] 09/16/2025 2:20 PM EST [facility] Visit [facility] [address], [address] [place] [address] Joni Trujillo MD [address] [place] [address] Health Maintenance Due Date Last Done Comments [facility]-Bone Density Scan 1955 [facility]-Hepatitis C Screening 1955 [facility]-Medicare Annual Wellness (AWV) 1955 [facility]-Infant/Child/Adol SDOH Screenings 1953 Diabetes: Dental Exam 1963 [facility]- SDOH Screenings 1971 [facility]-Adult SDOH Screenings [...] - PCV20 or PCV21) 01/01/2024 12/31/2018, 12/21/2017 [facility]-Diabetes: Hemoglobin A1C 01/09/2024 07/12/2023 [id number] Vaccine ( - season) 2024 09/30/2021, 12/16/2020, 11/18/2020 [facility]-Influenza Vaccine (#1) 2025 09/24/2018 [facility]-Depression Screening 03/17/2026 025, 03/17/2025 [facility]-DTaP,Tdap,and Td Vaccine s (2 - Td or Tdap) 12/22/2027 12/21/2017, 11/20/1996 [facility]-Obesity Intervention Completed 025, 10/27/2023, 07/12/2023 HPV Vaccines Aged Out No longer [...] 6.0(H) <5.7 % 07/12/2023 7:02 AM EDT [facility]ALTH[facility]ARE LAB Blood Venous blood specimen / [...] Adults <6.0% Children and Adolescents <7.5% Source: [place] [employer]. Standards of medical care in diabetes,2017. Diabetes Care.2017:40 (suppl 1):S1-S135. HbA1c assay performed by an ion-exchange chromatography method that is certified traceable to the DCCT. us Savi Mcghee Aye INFORMATION SYSTEMS SPECIALIST LAB BLOOD ORDERABLES Kelley matti Result [facility] [address] [place] [address] from Last 3 Months or Most Recently [...] Farias Spouse Next of Kin Care Teams Pie Crimping Machine Operator Relationship Specialty Start Date End Date Osito Ventura MD [address] [place] [address] PCP - General 07/12/22 Osito Ventura MD [address] [place], [place] [address] 07/12/22
--- OUTSIDE RECORDS SUMMARY | 2025-04-07 12:56 | XMS_ITS | Patient Health Record ---
[facility] Address [address] [facility] [address] [place] [id number] Care Team Providers Care Coordinate Measuring Machine Programmer Name Role Phone Yennifer Ventura Primary Care Provider Marilyn Meneses Unavailable [phone] Allergies Allergen (clinical drug ingredient) Drug/Non Drug Allergy documented on EMR Reaction Allergy Type Onset Date Status levofloxacin levoFLOXacin tendon pain Drug Allergy Active Results Component Value Reference Range Notes P-Parathyroid Hormone (PTH) Intact (Not yet reviewed by provider) Interpretation:107 Performing Lab: Notes/Report: Test performed by [facility] [address] [place], [place] [address] , [address], [place] [address] Wei Cline MD, Assistant Plant Manager CLIA: [id number] Parathyroid Hormone (PTH) Intact 107.0 15.0-65. 0 pg/mL P-Basic Metabolic Panel (BMP ) (Not yet reviewed by provider) Interpretation:gluc 100, Ca 10.8 Performing Lab: Notes/Report: Test performed by [facility] [address] [place] [address] [address], [address], [place] [address] Wei Cline MD, Assistant Plant Manager CLIA: [id number] Sodium 142 135-145 mmol/L Potassium 5.0 3.5-5.3 mmol/L Chloride 104 97-108 mmol/L CO2 28 20-32 mmol/L Glucose 100 65-99 mg/dL BUN 11 8-23 mg/dL Creatinine 0.77 0.50-1.00 mg/dL Calcium 10.8 8.6-10.4 mg/dL eGFR by Creatinine 82 >59 mL/min/1.73m2 P-Vitamin B12 (Not yet revie wed by provider) Interpretation:1491 Performing Lab: Notes/Report: Test performed by [facility] [address] [place] [address] , [place] [address] Wei Cline MD, Assistant Plant Manager CLIA: [id number] Vitamin B12 6981 765-6019 pg/mL P-Microalbumin/Creatinine, R andom Urine Sample Reviewed date:11/14/2024 09:43:28 AM Interpretation:a/c 45 Performing Lab: Notes/Report: Test performed by [facility] [address] [place] [address] [place] [address] Wei Cline MD, Assistant Plant Manager CLIA: [id number] Albumin/Creatinine Ratio, Urine 45 0-30 ug/m g Microalbumin, Urine, Random 3.2 Creatinine, Urine 70.7 P-Lipid Panel Reviewed date:11/14/2024 09:43:28 AM Interpretation:Normal Performing Lab: Notes/Report: Test performed by [facility] [address] [place] [address] Wei Cline MD, Assistant Plant Manager CLIA: [id number] Cholesterol 136 <200 mg/dL Triglycerides 103 <150 mg/dL HDL Cholesterol 44 >39 mg/dL Cholesterol / HDL Ratio 3.09 0.00-4.44 Ratio Non-HDL Cholesterol 92 <130 mg/dL LDL Cholesterol (Calculation) 71 <130 mg/dL LDL Cholesterol Levels* Less than 100 mg/dL Optimal 100 to 129 mg/dL Near Optimal/ Above Optimal 130 to 159 mg/dL Borderline High 160 to 189 mg/dL High 190 mg/dL and above Very High * Categories as recommended by the 2004 ATPIII guidelines LDL/HDL Ratio 1.6 <3.3 Ratio LDL Cholesterol Patient History Test Date: 11/11/2024 LDL Results: 71 Units: mg/dL % Change: - P-Comprehensive Metabolic Pa damián (CMP) Reviewed date:11/14/2024 09:43:28 AM Interpretation:K+ 5.6, gluc 121, Ca 10.6, alk phos 171 Performing Lab: Notes/Report: Test performed by [facility] [address] [place], [place] [address] , [address], [place] [address] Wei Cline MD, Assistant Plant Manager CLIA: [id number] Sodium 140 135-145 mmol/L Potassium 5.6 3.5-5.3 mmol/L Chloride 102 97-108 mmol/L CO2 26 22-32 mmol/L Glucose 121 65-99 mg/dL BUN 14 8-23 mg/dL Creatinine 0.80 0.50-1.00 mg/dL Calcium 10.6 8.6-10.4 mg/dL eGFR by Creatinine 79 >59 mL/min/1.73m2 Protein 6.8 6.0-8.3 g/dL Albumin 4.1 3.5-5.3 g/dL Alkaline Phosphatase 171 35-121 IU/L ALT (SGPT) 12 <5-47 IU/L AST (SGOT) 12 <5-40 IU/L Bilirubin, Total 0.4 <0.2-1.2 mg/dL A/G Ratio 1.5 1.1-2.5 P-Vitamin B12 Reviewed date:11/14/2024 09:43:28 AM Interpretation:229 Performing Lab: Notes/Report: Test performed by [facility] [address] [place], [place] [address] , [address], [place] [address] Wei Cline MD, Assistant Plant Manager CLIA: [id number] Vitamin B12 948 513-8282 pg/mL Glycohemoglobin A1c (in hous e) Reviewed date:11/12/2024 09:28:25 AM Interpretation: Performing Lab: Notes/Report: glycohemoglobin 6.3% 5 - 6.5 % CBC Venipuncture (in house) Reviewed date:11/12/2024 09:28:16 AM Interpretation: Performing Lab: Notes/Report: wbc 9.9 3.5 - 10 lymph 20.6% 15 - 50 mid 6.1% 2 - 15 gran 73.3% 35 - 80 rbc 5.07 3.5 - 5.5 hgb 14.4 11.5 - 16.5 hct 45.0 35 - 55 mcv 88.6 75 - 100 mch 28.3 25 - 35 mchc 32.0 31 - 38 platlet 294 100 - 400 P-Basic Metabolic Panel (BMP ) Reviewed date:11/18/2024 11:17:17 AM Interpretation:gluc 123 Performing Lab: Notes/Report: Test performed by [facility] [address] [place] [address] , [address], [place] [address] Wei Cline MD, Assistant Plant Manager CLIA: [id number] Sodium 143 135-145 mmol/L Potassium 4.6 3.5-5.3 mmol/L Chloride 104 97-108 mmol/L CO2 26 22-32 mmol/L Glucose 123 65-99 mg/dL BUN 17 8-23 mg/dL Creatinine 0.86 0.50-1.00 mg/dL Calcium 10.3 8.6-10.4 mg/dL eGFR by Creatinine 72 >59 mL/min/1.73m2 EKG (Not yet reviewed by pro vider) Interpretation:Abnormal, 04/03/2025 f/u appt Performing Lab: Notes/Report: Abnormal, 04/03/2025 f/u appt P-Comprehensive Metabolic Pa damián (CMP) (Not yet reviewed by provider) Interpretation:gkuc 111, Ca 10.5, alk phos 139 Performing Lab: Notes/Report: Test performed by [facility] [address] [place] [address] , [address], [place] [address] Wei Cline MD, Assistant Plant Manager CLIA: [id number] Sodium 141 135-145 mmol/L Potassium 4.1 3.5-5.3 [...] Interpretation:5.9 Performing Lab: Notes/Report: Test performed by [facility] [address] [place], [place] [address] [address], [place] [address] Wei Cline MD, Assistant Plant Manager CLIA: [id number] Hemoglobin A1C 5.9 <5.7 % The following HbA1c ranges recommended by the [place] Diabetes Association (ADA) may be used as an aid in the diagnosis of diabetes mellitus. HbA1c Suggested Diagnosis >=6.5% Diabetic 5.7% - 6.4% Pre-Diabetic <5.7% Non-Diabetic Estimated Average Glucose (N ot yet reviewed by provider) Interpretation:123 Performing Lab: Notes/Report: Test performed by [facility] [address] [place], [place] [address] [place] [address], [place] [address] Wei Cline MD, Assistant Plant Manager CLIA: [id number] Estimated Average Glucose (eAG) 123 Estimated Average Glucose (eAG) is calculated using the equation eAG = (28.7 x HbA1c) - 46.7 based on the guidelines established by the ADA. If the patient has certain diseases including kidney disease, sickle cell anemia, thalassemia, or is taking medications such as dapsone, erythropoietin, or iron, eAG should not be evaluated. Reason For Referral Reason weakness Diagnosis 1 Generalized weakness (R53.1) Referral Organization [facility] Referring Provider First Name Yennifer Leal Referring Provider Last Name Lorenzo Referring Provider Speciality Family Pra ctice Referred Provider Specialty Physical The rapist Referral Priority Routine Medications Medication SIG (Take, Route, Frequency, Duration) Notes Start Date End Date Status Senna-Docusate Sodium 8.6-50 MG 1 tablet as needed Orally Twice a day Active Pepcid 20 MG 1 tab(s) orally prn Active Irbesartan 300 mg TAKE ONE TABLET BY MOUTH EVERY DAY; Duration: 30 Not-Taking Melatonin 3 MG 1 tablet at bedtime as needed Orally Once a day; Duration: 30 day(s) Active dilTIAZem HCl ER Beads 360 MG TAKE ONE CAPSULE BY MOUTH EVERY DAY; Duration: 30 Not-Taking Atorvastatin Calcium 40 mg 1 tablet Orally Once a day; Duration: 30 days Active Doxazosin Mesylate 2 MG 1 tab(s) orally At Bed Time; Duration: 30 days patient needs appt Active B-12 1000 MCG 1 tab(s) orally once a day; Duration: 30 day(s) 05/07/2020 Active Xarelto 20 mg 1 tablet orally once daily; Duration: 30 days Active Breo Ellipta 200-25 MCG/ACT INHALE 1 PUFF BY MOUTH EVERY DAY; Duration: 30 days Active Furosemide 80 MG 1 tablet Orally Once a day; Duration: 30 day(s) 11/11/2024 Active Metoprolol Succinate ER 100 mg TAKE ONE AND HALF TABLETS BY MOUTH EVERY DAY; Duration: 30 days Active Mounjaro 7.5 MG/0.5ML as directed Subcutaneous weekly 03/06/2025 Active Losartan Potassium 100 MG 1/2 Orally bedtime; Duration: 30 days 11/11/2024 Active Acetaminophen 325 MG 1 tablet as needed Orally every 4 hrs Active Jardiance 10 mg TAKE ONE TABLET BY MOUTH EVERY DAY; Duration: 30 days Not-Taking MiraLax 17 GM/SCOOP 1 scoop mixed with 8 ounces of fluid Orally Once a day; Duration: 30 day(s) Active hydrOXYzine HCl 25 mg TAKE ONE TABLET BY MOUTH THREE TIMES DAILY NEEDED MAY CAUSE DROWSINESS; Duration: 30 Not-Taking Immunizations Vaccine Route Administration Date Status Comme nts Tetanus Tdap-Adacel (over 7yrs) IM Intramuscular 12/21/2017 Administered Prevnar (PCV13) IM Intramuscular 12/31/2018 Administered PNEUMOVAX 23 VACCINE IM Intramuscular 12/21/2017 Administe red Fluzone Quad (6months&older) IM Intramuscular 09/21/2016 Administered Fluzone High Dose (65yr and older) IM Intramuscular 09/24/2018 Administered Fluzone High Dose (65yr and older) IM Intramuscular 07/20/2020 Administered DT, 7 YEARS OR OLDER Unknown 11/20/1996 Administered COVID 19 Moderna Unknown 11/18/2020 Administered COVID 19 Moderna Unknown 12/16/2020 Administered COVID 19 Moderna Unknown 09/30/2021 Administered Problems Problem Type SNOMED Code ICD Code Onset Dates Problem Status W/U Status Risk Notes Problem Essential hypertension (25458745) Essential (primary) hypertension (I10) Active confirmed Problem Hypertension (69402208) HTN (hypertension) (I10) Active confirmed Problem Vitamin B12 deficiency (288628831) Vitamin B12 deficiency (E53.8) Active confirmed Problem Hypercalcemia (23308770) Hypercalcemia (E83.52) Active confirmed Problem Essential hypertension (50123145) Essential hypertension (I10) Active confirmed Problem Cardiac dysrhythmia (415628262) Cardiac dysrhythmia (I49.9) Active confirmed Problem Anxiety (56300989) Anxiety (F41.9) Active confi rmed Problem Sciatic nerve lesion (738706316) Piriformis syndrome of right side (G57.01) Active confirmed Problem Body mass index 40+ - severely obese (520982576) BMI 50.0-59.9, adult (Z68.43) Active confirmed Problem Paroxysmal atrial fibrillation (667479701) Paroxysmal atrial fibrillation (I48.0) Active confirmed Problem Lymphedema (71755729) Lymphedema (I89.0) Active confirmed Problem Bandemia (280275518) Bandemia (D72.825) Active confirmed Problem Type 2 diabetes mellitus with other specified complication (E11.69) Active confirmed Problem Pure hypercholesterolemia (340757742) Pure hypercholesterolemia (E78.0) Active confirmed Problem Acute cystitis (51619641) Acute cystitis with hematuria (N30.01) Active confirmed Problem Chronic obstructive pulmonary disease (29313670) Asthmatic bronchitis , chronic (J44.9) Active confirmed Problem Atrial fibrillation (87147875) Atrial fibrillation, unspecified type (I48.91) Active confirmed Problem Dyslipidemia (983356073) Dyslipidemia (E78.5) Active confirmed Problem Type II diabetes mellitus without complication (878363342) Type 2 diabetes mellitus without complication, without long-term current use of insulin (E11.9) Active confirmed Problem Morbid obesity (720993267) Obesity, morbid, BMI 50 or higher (E66.01) Active confirmed Problem Peripheral venous insufficiency (59906034) Stasis dermatitis of both legs (I87.2) Active confirmed Problem Prolapse of uterus (51535741) Prolapse of uterus (N81.4) Active confirmed Problem Fibrocystic breast changes (06077210) Fibrocystic breast disease (FCBD), unspecified laterality (N60.19) Active confirmed Problem Seasonal allergic rhinitis (935501962) Seasonal allergic rhinitis, unspecified trigger (J30.2) Active confirmed Problem Osteopenia following menopause (disorder) (071582171) Osteopenia after menopause (M81.0) Active confirmed Problem Persistent atrial fibrillation (933292569) Persistent atrial fibrillation (I48.19) Active confirmed Problem Degeneration of lumbar intervertebral disc (80146905) Disc degeneration, lumbar (M51.36) Active confirmed Vital Signs Heart Rate 84 /min 04/03/2025 Blood pressure diastolic 90 mm Hg 04/03/2025 Height 64.75 in 04/03/2025 Blood pressure systolic 118 mm Hg 04/03/2025 Weight 315.2 lbs 04/03/2025 BMI 52.85 kg/m2 04/03/2025 Encounters Encounter Location Date Provider Diagnosis [facility] [address] [place] [id number] 11/11/2024 Yennifer Ventura Essential hypertensi on I10 ; Obesity, morbid, BMI 50 or higher E66.01 ; Type 2 diabetes mellitus without complication, without long-term current use of insulin E11.9 ; Vitamin B12 deficiency E53.8 and Dyslipidemia E78.5 [facility] [address] [place] [id number] 11/15/2024 Yennifer Ventura Vitamin B12 deficien cy E53.8 and HTN (hypertension) I10 [facility] [address] [place] [id number] 12/02/2024 Yennifer Ventura Cardiac dysrhythmia I49.9 and BMI 50.0-59.9, adult Z68.43 [facility] [address] [place] [id number] 03/06/2025 Yennifer Ventura Persistent atrial fibrillation I48.19 ; BMI 50.0-59.9, adult Z68.43 ; Essential (primary) hypertension I10 ; Asthmatic bronchitis , chronic J44.9 and Type 2 diabetes mellitus with other specified complication E11.69 [facility] [address] [place] [facility] [address] [place], [place] [id number] 04/03/2025 Yennifer Ventura Essential hypertensi on I10 ; Persistent atrial fibrillation I48.19 ; Obesity, morbid, BMI 50 or higher E66.01 ; Type 2 diabetes mellitus without complication, without long-term current use of insulin E11.9 ; Vitamin B12 deficiency E53.8 ; Generalized weakness R53.1 and Hypercalcemia E83.52 [facility] [address] [facility] [address] [facility] [address] [place], [place] [id number] 11/06/2024 Yennifer Ventura [facility] [address] [facility] [address] [place], [place] [id number] 11/14/2024 Yennifer Ventura [facility] [address] [place] [facility] [address] [place], [place] [id number] 11/18/2024 Yennifer Ventura [facility] [address] [place] [facility] [address] [place], [place] [id number] 01/10/2025 Marilyn Zaira Type 2 diabetes mellitus without complication, without long-term current use of insulin E11.9 [facility] [address] [facility] [address] [place], [place] [id number] 02/05/2025 Yennifer Ventura [facility] [address] [place] [facility] [address] [place], [place] [id number] 03/12/2025 Yennifer Ventura Screening for colon cancer Z12.11 ; Screening for breast cancer Z12.39 and Screening for osteoporosis Z13.820 Assessments Encounter Date Diagnosis (ICD Code) Assessment Notes Treatment Notes Treatment Clinical Notes Section Notes 11/15/2024 Vitamin B12 deficiency (ICD-10 - E53.8) 01/10/2025 Type 2 diabetes mellitus without complication, without long-term current use of insulin (ICD-10 - E11.9) 03/06/2025 BMI 50.0-59.9, adult (ICD-10 - Z68.43) 03/06/2025 Persistent atrial fibrillation (ICD-10 - I48.19) 03/12/2025 Screening for breast cancer (ICD-10 - Z12.39) 03/12/2025 Screening for colon cancer (ICD-10 - Z12.11) refused 04/03/2025 Essential hypertension (ICD-10 - I10) 04/03/2025 Persistent atrial fibrillation (ICD-10 - I48.19) 12/02/2024 Cardiac dysrhythmia (ICD-10 - I49.9) 12/02/2024 BMI 50.0-59.9, adult (ICD-10 - Z68.43) 11/11/2024 Essential hypertension (ICD-10 - I10) 11/11/2024 Obesity, morbid, BMI 50 or higher (ICD-10 - E66.01) 04/03/2025 Obesity, morbid, BMI 50 or higher (ICD-10 - E66.01) 11/11/2024 Type 2 diabetes mellitus without complication, without long-term current use of insulin (ICD-10 - E11.9) 03/12/2025 Screening for osteoporosis (ICD-10 - Z13.820) 03/06/2025 Essential (primary) hypertension (ICD-10 - I10) 11/15/2024 HTN (hypertension) (ICD-10 - I10) 03/06/2025 Asthmatic bronchitis , chronic (ICD-10 - J44.9) 04/03/2025 Type 2 diabetes mellitus without complication, without long-term current use of insulin (ICD-10 - E11.9) 11/11/2024 Vitamin B12 deficiency (ICD-10 - E53.8) 11/11/2024 Dyslipidemia (ICD-10 - E78.5) 04/03/2025 Vitamin B12 deficiency (ICD-10 - E53.8) 03/06/2025 Type 2 diabetes mellitus with other specified complication (ICD-10 - E11.69) 04/03/2025 Generalized weakness (ICD-10 - R53.1) 04/03/2025 Hypercalcemia (ICD-10 - E83.52) Plan Of Treatment Pending Test Test Name Order Date Bone density 03/12/2025 EKG 12/02/2024 Mammogram 03/12/2025 P-Vitamin B12 04/03/2025 P-Basic Metabolic Panel (BMP) 04/03/2025 P-Comprehensive Metabolic Panel (CMP) P-Hemoglobin A1C 03/06/2025 P-Parathyroid Hormone (PTH) Intact 04/03 Estimated Average Glucose 03/06/2025 Next Appt Details Provider Name:Yennifer Ortiz er, 07/21/2025 02:15:00 PM, [address], [address], [place], [id number], Insurance Providers Payer Name Payer Address Payer Phone Subscriber Number Group Number Insured Name Patient Relationship to Insured Coverage Start Date Coverage End Date MEDICARE PART B [address] [address] [place] [address] [id number] BALDO HAGEN Self - patient is the insured [facility] [address] [place] [address] [id number] BALDO HAGEN Self - patient is the insured Medications Administered Medication Instructions Date of Administration Dosage Notes B-12 11/15/2024 1 mL Depo- Medrol 40 mg/ml 05/21/2014 1 mL Depo- Medrol 40 mg/ml 03/29/2023 1.5 mL Medical (General) History Medical History History ICD Code hypertension hyperlipidemia asthma, weight induced [place] palsy atrial fibrillation COVID vaccine Nov 2020, Moderna Surgical History Surgery Date(Month/Year) Hospitalization History Reason Date(Month/Year)
--- OUTSIDE RECORDS SUMMARY | 2025-04-07 12:56 | XMS_ITS | Encounter Summary ---
Author Organization Healthcare Address [address] [place] [address] Care Team Providers Care Sports Marketing Internship Name Role Phone Osito Ventura MD Primary Care Provider [phone] Osito Ventura MD Unavailable [phone] Reason for Visit * Reason Comments Med Refill Encounter Details Date Type Department Care Team ([facility] st Contact Info) Description 02/21/2025 Refill [facility] [place] [address] [facility], [address] [place] [address] Joni Trujillo MD [address] [place] [address] Atrial fibrillation, unspecified type (CMS/HCC) [...] relatives? Three times a week 07/17/2023 Attends Jew Services Not on file 07/17 Active Member [...] and heating? Not hard at all 07/17/2023 [facility] [place] of Occupat ional Health - [...] place to sleep or slept in a long term (including now)? No 07/17/2023 Utilities Answer Date [...] as of this encounter Plan of Treatment Upcoming Encounters Date Type Department Care Team (Late st Contact Info) Description 07/01/2025 10:40 AM EDT Office Visit [facility] [place] [address] , [address] [place] [address] Joni Trujillo MD [address] [place] [address] 09/16/2025 2:20 PM EST Office Visit [facility] [place] [address], [address] [place] [address] Joni Trujillo MD [address] [place] [address] documented as of this encounter Visit Diagnoses Diagnosis Atrial fibrillation, unspecified type (CMS/HCC) documented in this encounter Additional Health Concerns Infection Onset Date Last Indicated Resolved Time 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
--- OUTSIDE RECORDS SUMMARY | 2025-04-07 12:56 | XMS_ITS | Encounter Summary ---
Author Organization Healthcare Address [address] [place] [address] Care Team Providers Care Cath Lab Tech Name Role Phone Osito Ventura MD Primary Care Provider [phone] Osito Ventura MD Unavailable [phone] Reason for Visit * Reason Comments Med Refill Encounter Details Date Type Department Care Team ([facility] st Contact Info) Description 03/01/2025 Refill [facility] [place] [address] [facility], [address] [place] [address] Joni Trujillo MD [address] [place] [address] Atrial fibrillation, unspecified type (CMS/HCC) [...] relatives? Three times a week 07/17/2023 Attends Synagogue Services Not on file 07/17 Active Member [...] and heating? Not hard at all 07/17/2023 [facility] [place] of Occupat ional Health - Occupational Stress [...] in a detention (including now)? No 07/17/2023 Utilities Answer Date [...] Description 07/01/2025 10:40 AM EDT Office Visit [facility] [place] [address] , [address] [place] [address] Joni Trujillo MD [address] [place] [address] 09/16/2025 2:20 PM EST Office Visit [facility] [place] [address], [address] [place] [address] Joni Trujillo MD [address] [place] [address] documented as of this encounter Visit Diagnoses Diagnosis Atrial fibrillation, unspecified type (CMS/HCC) documented in this encounter Additional Health Concerns Infection Onset Date Last Indicated Resolved Time 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
--- OUTSIDE RECORDS SUMMARY | 2025-04-07 12:56 | XMS_ITS | Encounter Summary ---
Author Organization Healthcare Address [address] [place] [address] Care Team Providers Care Automotive Product Specialist Name Role Phone Osito Ventura MD Primary Care Provider [phone] Osito Ventura MD Unavailable [phone] Reason for Visit * Reason Comments Med Refill Encounter Details Date Type Department Care Team ([facility] st Contact Info) Description 02/28/2025 Refill [facility] [place] [address] [facility], [address] [place] [address] Joni Trujillo MD [address] [place] [address] Atrial fibrillation, unspecified type (CMS/HCC) [...] relatives? Three times a week 07/17/2023 Attends Restoration Services Not on file 07/17 Active Member [...] and heating? Not hard at all 07/17/2023 [facility] [place] of Occupat ional Health - Occupational Stress [...] place to sleep or slept in a chcf (including now)? No 07/17/2023 Utilities Answer Date [...] Description 07/01/2025 10:40 AM EDT Office Visit [facility] [place] [address] , [address] [place] [address] Joni Trujillo MD [address] [place] [address] 09/16/2025 2:20 PM EST Office Visit [facility] [place] [address], [address] [place] [address] Joni Trujillo MD [address] [place] [address] documented as of this encounter Visit Diagnoses Diagnosis Atrial fibrillation, unspecified type (CMS/HCC) documented in this encounter Additional Health Concerns Infection Onset Date Last Indicated Resolved Time 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
--- OUTSIDE RECORDS SUMMARY | 2025-04-07 12:57 | XMS_ITS | Encounter Summary ---
Author Organization Healthcare Address [address] [place] [address] Care Team Providers Care Road Supervisor Of Engines Name Role Phone Osito Ventura MD Primary Care Provider [phone] Osito Ventura MD Unavailable [phone] Encounter Details Date Type Department Care Team (Latest Contact Info) Description 03/17/2025 Travel Social History Tobacco Use Types Packs/Day Years [...] relatives? Three times a week 07/17/2023 Attends Denominational Services Not on file 07/17 Active Member [...] Recorded Patient Health Questionnaire-2 Score 1 03/17/2025 [facility] - Occupational Stress Questionnaire Answer Date Recorded [...] to sleep or slept in a senior care (including now)? No 07/17/2023 PHQ-9 Answer Date Recorded Patient Health Questionnaire-9 Score 10 03/17/2025 Utilities Answer Date Recorded In the past 12 months has [facility] [employer], gas, oil, or water [employer] threatened to shut off services in your home? No 07/17/2023 Comments Unknown Sex and Gender Information Value Date Recorded Sex Assigned at Not on file Legal Sex Female 7:33 PM EDT Gender Identity Not on file Sexual Orientation Not on file documented as of this encounter Functional Status * Over the [...] way Not at all 03/17/2025 11:21 AM Kristine Alfaro RN Patient Health Questionnaire-9 Score 10 03/17/2025 11:21 AM Kristine Alfaro RN * If you checked off any problems on this questionnaire so far, Question Answer Date of Assessment Author How difficult have these problems made it for you to do your work, take care of things at home, or get along with other people? Not difficult at all 03/17/2025 11:21 AM Kristine Alfaro RN * How difficult have these problems made it for you to do your work, take care of things at home, or get along with other people? Answer Date of Assessment Author Not difficult at all 03/17/2025 11:21 AM Kristine Boogie RN documented as of this encounter Plan of Treatment Upcoming Encounters Date Type Department Care Team (Late st Contact Info) Description 07/01/2025 10:40 AM EDT Office Visit [facility] [place] [address] [facility], [address] [place] [address] Joni Trujillo MD [address] [place] [address] 09/16/2025 2:20 PM EST Office Visit [facility] [place] [address] , [address] [place] [address] Joni Trujillo MD [address] [place] [address] documented as of this encounter Visit Diagnoses Not on filedocumented in this encounter Additional Health Concerns Infection Onset Date Last Indicated Resolved Time 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
--- OUTSIDE RECORDS SUMMARY | 2025-04-07 12:57 | XMS_ITS | Encounter Summary ---
Author Organization [facility] Address [address] [place] [address] Care Team Providers Care Window Cutter Name Role Phone Osito Ventura MD Primary Care Provider [phone] Osito Ventura MD Unavailable [phone] Reason for Visit * Reason Onset Date Comments HCN - Patient Message 03/12/2025 Encounter Details Date Type Department Care Team (Late st Contact Info) Description 03/12/2025 Telephone [facility] [place] [address] [facility], [address] [place] [address] Joni Trujillo MD [address] [place] [address] H[facility] - Patient Message Social History Tobacco Use Types Packs/Day Years [...] relatives? Three times a week 07/17/2023 Attends Amish Services Not on file 07/17 Active Member [...] and heating? Not hard at all 07/17/2023 [facility] [place] of Occupat ional Health - Occupational Stress [...] on file documented as of this encounter Miscellaneous Notes * Telephone Encounter - Abril Alberto - 03/12/2025 3:58 PM EDT Patient Phone Message Reason for Call: Pt is asking if she may be seen sooner. Best contact number and optimal time of day to reach caller: [phone] Note: Please do not reply to this message. Follow-up communication and further actions as a result of this message need to be communicated with the patient directly, if the patient is not active onMyChart. If the patient is active on MyChart, they will receive notification of the communication/outcome via MyChart. documented in this encounter Plan of Treatment Upcoming Encounters Date Type Department Care Team ([place] st Contact Info) Description 07/01/2025 10:40 AM EDT Office Visit [facility] [place] [address] [facility], [address] [place] [address] Joni Trujillo MD [address] [place] [address] 09/16/2025 2:20 PM EST Office Visit [facility] [place] [address] [facility], [address] [place] [address] Joni Trujillo MD [address] [place] [address] documented as of this encounter Visit Diagnoses Not on filedocumented in this encounter Additional Health Concerns Infection Onset Date Last Indicated Resolved Time 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
== END 2025-04-07 23:59 | disposition home or self-care (01) ==
LOC: RAD 12:54
PROVIDERS: PCP Family Medicine; Visit Provider Family Medicine
DX: Z12.31 Encounter for screening mammogram for malignant neoplasm of breast (principal); M85.852 Other specified disorders of bone density and structure, left thigh; R92.323 Mammographic fibroglandular density, bilateral breasts; M81.0 Age-related osteoporosis without current pathological fracture
CPT/HCPCS: 77063; 77067; 77080

== ENCOUNTER 2025-05-07 09:48 | Outpatient (CLI) | payer MEDICARE, SELFPAY ==
--- OUTSIDE RECORDS SUMMARY | 2025-03-06 10:45 | XMS_ITS ---
Author Organization [facility] Address [address] [facility] [address] [place] [id number] Care Team Providers Care Cant Hooker Name Role Phone Yennifer Ventura Primary Care Provider Allergies Allergen (clinical drug ingredient) Drug/Non Drug Allergy documented on EMR Reaction Allergy Type Onset Date Status levofloxacin levoFLOXacin tendon pain Drug Allergy Active Results Component Value Reference Range Notes P-Comprehensive Metabolic Pa damián (CMP) Reviewed date:04/10/2025 12:18:49 PM Interpretation:gkuc 111, Ca 10.5, alk phos 139 Performing Lab: Notes/Report: Test performed by [facility] [address] , [address], [place] [address] Wei Cline MD, Civil Division Deputy Sheriff CLIA: [id number] Sodium 141 135-145 mmol/L Potassium 4.1 3.5-5.3 [...] mg/dL A/G Ratio 1.6 1.1-2.5 P-Hemoglobin A1C Reviewed date:04/10/2025 12:18:49 PM Interpretation:5.9 Performing Lab: Notes/Report: Test performed by [facility] [address] [place] [address] [address]eli [address] , [place] [address] Wei Cline MD, Civil Division Deputy Sheriff CLIA: [id number] Hemoglobin A1C 5.9 <5.7 % The following HbA1c ranges recommended by the [place] [employer] (ADA) may be used as an aid in the diagnosis of diabetes mellitus. HbA1c Suggested Diagnosis >=6.5% Diabetic 5.7% - 6.4% Pre-Diabetic <5.7% Non-Diabetic Estimated Average Glucose Reviewed date:04/10/2025 12:18:49 PM Interpretation:123 Performing Lab: Notes/Report: Test performed by [facility] [employer] [address] [place] [address] [address] , [place] [address] Wei Cline MD, Civil Division Deputy Sheriff CLIA: [id number] Estimated Average Glucose (eAG) 123 Estimated Average [...] 03/06/2025 Encounters Encounter Location Date Provider Diagnosis [facility] [address], [place] [id number] 03/06/2025 Yennifer Ventura Persistent atrial fibrillation I48.19 [...] 5 mg Subcutaneous once a week 01/11/20 Next Appt Details Follow Up: 4 Weeks, Reason: Provider Name:Yennifer Ortiz er, 07/21/2025 02:15:00 PM, [address] [facility] [address], [address], [place], [place], [id number], Progress Notes * ANUEL HAGENADOB:1955 (69 yo F)Acc No.[id number]:03/06/2025 Progress Notes Patient: BALDO FERRER Provider: Yennifer Ventura M.D. :1955 A ge:69 Y S ex:Female Date:03/06/2025 Address:[address] [place] [address], [place], [id number] Subjective: * Chief Complaints: * 1 . [...] fasting. She says she has follow-up at [facility] Cardiology in May, Dr. Joni Trujillo. 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 B [place] 50.0-59.9, adult - Z68.43 3 . E ssential (primary) hypertension - I10 4 .?Asthmatic bronchitis , chronic - J44.9 5 . T ype 2 diabetes mellitus with other specified complication - E11.69 Plan: * Treatment: 2. B [place] 50.0-59.9, adult Stop Mounjaro Solution Auto-injector, 5 [...] stimated Average Glucose 123 - mg/dL * [facility], IT support 03/07/2025 04:10:08 : This order [...] * Images: Billing Information: * Visit Code: 23453 Office Visit, Est Pt., Level 4. * Procedure Codes: G2211 Complex e/m visit add on. 1036F TOBACCO NON-USER. 3044F HG A1C LEVEL LT 7.0%. G8950 PREHTN/HTN BP DOC INDCD F/U DOC. G8752 MOST RECENT SYSTOLIC BP < 140MM HG. G8754 MOST RECENT DIASTOLIC BP < 90MM HG. * Electronic signature of Yennifer Ventura MD on 05/07/2025 at 10:04 AM EDT Sign off status: Pending * Provider: Yennifer Ventura M.D. Date: 0 03/06/2025 Generated for Printi ng/Fagleng/eTransmitting on: 0 05/07/2025 10:04 AM EDT History and Physical Notes * HPI [...]
--- OUTSIDE RECORDS SUMMARY | 2025-03-12 10:10 | XMS_ITS ---
Author Organization [facility] Address [facility] [address] [place] [id number] Care Team Providers Care Loss Claim Clerk Name Role Phone Yennifer Ventura Primary Care Provider Results Component Value Reference Range Notes Bone density Reviewed date:04/10/2025 12:20:58 PM Interpretation:osteopenia left hip Performing Lab: Notes/Report: osteopenia left hip Bone density osteopenia left hip Mammogram Reviewed date:04/15/2025 01:59:32 PM Interpretation:Negative Performing Lab: Notes/Report: Negative result negative REASON FOR VISIT BD, Mammo and CCS Encounters Encounter Location Date Provider Diagnosis [facility] [address] [place] [id number] 03/12/2025 Yennifer Ventura Screening for colon cancer Z12.11 ; Screening for breast cancer Z12.39 and Screening for osteoporosis Z13.820 Assessments Encounter Date Diagnosis (ICD Code) Assessment Notes Treatment Notes Treatment Clinical Notes Section Notes 03/12/2025 Screening for colon cancer (ICD-10 - Z12.11) refused 03/12/2025 Screening for breast cancer (ICD-10 - Z12.39) 03/12/2025 Screening for osteoporosis (ICD-10 - Z13.820) Plan Of Treatment Treatment Notes Assessment Notes Screening for colon cancer refused Next Appt Details Provider Name:Yennifer Ortiz er, 07/21/2025 02:15:00 PM, [address], [place], [phone], Progress Notes * HIEUANUEL LOMELIADOB:1955 (69 yo F)Acc No.[id number]:03/12/2025 Patient: BALDO FERRER :1955 A ge:69 Y S ex:Female Address:[address] [place], [place] [address] [place], [place] [address] Subjective: * Chief Complaints: * B D, Mammo and CCS * Medical History: * Surgical History: * Hospitalization/Major Diagno stic Procedure: * Medications: Objective: * Vitals: * Physical Examination: Assessment: * Assessment: 1. S creening for colon cancer - Z12.11 (Primary) 2 . S creening for breast cancer - Z12.39 3 . S creening for osteoporosis - Z13.820 Plan: * Treatment: 2. S creening for breast cancer I maging: Mammogram 3.?Screening for osteoporosis?Imaging: Bone density* Value Reference Range B one density osteopenia left hip * Connie Giraldo 03/12/2025 03:4 8:46 PM EDT > Sent to [facility] for Referral to [facility] 03/12/2025 03:57:23 PM EDT > faxed to [facility] Fatimah Whitaker 04/10/2025 12:20:50 PM EDT > See phone encounterThis HENRY was reviewed by Fatimah Ruvalcaba on 04/10/2025 at 12:20 PM EDT * Procedure Codes: * true * Date: Generated for Ken vidal/Anusha/eTransmitting on: 0 05/07/2025 10:03 AM EDT
--- OUTSIDE RECORDS SUMMARY | 2025-03-17 11:00 | XMS_ITS | Encounter Summary ---
Author Organization [facility] Address [address] [place] [address] Care Team Providers Care Hand Bulldozer Name Role Phone Osito Ventura MD Primary Care Provider [phone] Osito Ventura MD Unavailable [phone] Reason for Referral * Consultation (Routine) - Authorized Specialty Diagnoses / Procedures Referred By Marie ball Referred To Contact Diagnoses Persistent atrial fibrillation (CMS/HCC) Yaz Leone APRN [address] [place] [address] Phone: tel: fax: Referral ID Status Reason Start Date Expiration Date V isits Requested Visits Authorized [id number] Authorized 03/17/2025 09/16/2026 1 1 Encounter Details Date Type Department Care Team (Latest Contact Info) Description 03/17/2025 11:00 AM EDT Office Visit [facility] [place] [address] [facility] [address], [address] [place] [phone] Yaz Leone APRN [address] [place] [address] Persistent atrial fibrillation (CMS/HCC) (Primary [...] relatives? Three times a week 07/17/2023 Attends [employer] Not on file 07/17 Active Member [...] Recorded Patient Health Questionnaire-2 Score 1 03/17/2025 [place] [facility] - Occupational Stress [...] place to sleep or slept in a intermediate (including now)? No 07/17/2023 PHQ-9 Answer Date [...] to [facility] for follow up after Dr. Anjali Trujillo [...] to room in her home and completes chiropractic neurologist. She has difficulty getting up out of [...] and OAC COLLINS: Requesting referral to specific carpenter's helper, but cannot recall name. She recalls the [...] Procedure Laterality Date ADENOIDECTOMY N/A Adenoidectomy from [facility] APPENDECTOMY N/A Appendectomy from [facility] APPENDECTOMY N/A Appendix surgery from [facility] CHOLECYSTECTOMY N/A Cholecystectomy from [facility] CYST REMOVAL N/A Cyst removal from [facility] GALLBLADDER SURGERY N/A Gallbladder surgery from [facility] HERNIA REPAIR N/A Hernia Repair from [facility] HERNIA REPAIR N/A Hernia repair from [facility] SKIN LESION EXCISION N/A skin lesion excision from [facility] TONSILLECTOMY N/A Tonsillectomy from [facility] TONSILLECTOMY N/A Tonsillectomy from [facility] [3] Current Outpatient Medications Medication Sig Dispense [...] Description 07/01/2025 10:40 AM EDT Office Visit [facility] [place] [address] [address] [facility], [address] [place] [address] Joni Trujillo MD [address] [place] [phone] 09/16/2025 2:20 PM EST Office Visit [facility] [place] [address], [address] [place] [address] Joni Trujillo MD [address] [place] [address] Scheduled Referrals Name Type Priority [...] documented as of this encounter Care Teams Hand Bulldozer Relationship Specialty Start Date End Date Osito Ventura MD [address] [place], [place] [address] PCP - General 07/12/22 Osito Ventura MD [address] [place] [address] 07/12/22 documented as of this encounter
--- OUTSIDE RECORDS SUMMARY | 2025-04-03 09:30 | XMS_ITS ---
Author Organization [facility] Address [address] [facility] [address] [place] [id number] Care Team Providers Care Cdl Flatbed Truck Driver Name Role Phone Yennifer Ventura Primary Care Provider Allergies Allergen (clinical drug ingredient) Drug/Non Drug Allergy documented on EMR Reaction Allergy Type Onset Date Status levofloxacin levoFLOXacin tendon pain Drug Allergy Active Results Component Value Reference Range Notes P-Vitamin B12 Reviewed date:04/10/2025 12:20:58 PM Interpretation:1491 Performing Lab: Notes/Report: Test performed by [facility] [address] [place] [address] , [facility] [place], [place] [address] Wei Cline MD, Meat And Poultry Inspector CLIA: [id number] Vitamin B12 3491 726-5606 pg/mL P-Basic Metabolic Panel (BMP ) Reviewed date:04/10/2025 12:20:59 PM Interpretation:gluc 100, Ca 10.8 Performing Lab: Notes/Report: Test performed by [facility] [address] [place] [address] [address], [place] [address] Wei Cline MD, Meat And Poultry Inspector CLIA: [id number] Sodium 142 135-145 mmol/L Potassium 5.0 3.5-5.3 mmol/L Chloride 104 97-108 mmol/L CO2 28 20-32 mmol/L Glucose 100 65-99 mg/dL BUN 11 8-23 mg/dL Creatinine 0.77 0.50-1.00 mg/dL Calcium 10.8 8.6-10.4 mg/dL eGFR by Creatinine 82 >59 mL/min/1.73m2 P-Parathyroid Hormone (PTH) Intact Reviewed date:04/10/2025 12:20:59 PM Interpretation:107 Performing Lab: Notes/Report: Test performed by [facility] [address] [place] [address] , [address], [place] [address] Wei Cline MD, Meat And Poultry Inspector CLIA: [id number] Parathyroid Hormone (PTH) Intact 107.0 15.0-65. 0 pg/mL Reason For Referral Reason weakness Diagnosis 1 Generalized weakness (R53.1) [facility] Referring Provider First Name Yennifer Leal Referring Provider Last Name Lorenzo Referring Provider Speciality Family Pra ctice Referred Provider Specialty Physical The rapist General Notes Purvi Melvin 2024 01:08:54 PM > faxed to [facility] Referral Priority Routine REASON FOR VISIT 4 [...] Status W/U Status Risk Notes Problem Hypercalcemia (57094642) Hypercalcemia (E83.52) Active confirmed Vital Signs Weight 315.2 lbs 04/03/2025 Blood pressure systolic 118 mm Hg 04/03/20 25 Blood pressure diastolic 90 mm Hg 025 Heart Rate 84 /min 04/03/2025 Height 64.75 in 04/03/2025 BMI 52.85 kg/m2 04/03/2025 Encounters Encounter Location Date Provider Diagnosis [facility] [address] [id number] 04/03/2025 Yennifer Ventura Essential hypertensi on I10 [...] Hypercalcemia (ICD-10 - E83.52) Plan Of Treatment Referrals Referral Date Details 04/03/2025 04/03/2025, weakness Next Appt Details Follow Up: 3 Months, Reason: Provider Name:Yennifer wise, 07/21/2025 02:15:00 PM, [address], [address], [place], [place] [id number], Progress Notes * BARB HAGENB:1955 (69 yo F)Acc No.[id number]:04/03/2025 Progress Notes Patient: BALDO FERRER Provider: Yennifer Ventura M.D. :1955 A ge:69 Y S ex:Female Date:04/03/2025 Address:[address] [place] [address] [address], [place], [id number] Subjective: * Chief Complaints: * 1 . [...] History: H ypertension, Hyperlipidemia, Asthma, weight induced, [place] palsy, Atrial fibrillation, COVID vaccine Nov 2020, [...] GFR by Creatinine 82 >59 - mL/min/1.73m2 * Fatimah Ruvalcaba Ann 04/10/20 12:20:50 PM EDT > See phone encounter 2.?Vitamin B12 deficiency?LAB: P-Vitamin B12 (Collection Date & Time - 04/03/2025 01:18 PM)?1491* Value Reference Range V itamin B12 1491 H 232-1245 - pg/mL * Fatimah Ruvalcaba Ann 04/10/20 12:20:50 PM EDT > See phone encounter 3.?Generalized weakness? Referral To:Physical Therapist ?Reason:weakness 4.?Hypercalcemia?LAB: P-Parathyroid Hormone (PTH) Intact (Collection Date & Time - 04/03/2025 01:18 PM)?107* Value Reference Range P arathyroid Hormone (PTH) Intact 107.0 H 15.0-65. 0 - pg/mL * Fatimah Ruvalcaba Ann 04/10/20 12:20:50 PM EDT > See phone encounter * Procedure Codes: G 2211 Complex e/m visit add on, 1036F TOBACCO NON-USER, 3044F HG A1C LEVEL LT 7.0%, G8950 PREHTN/HTN BP DOC INDCD F/U DOC, G8752 MOST RECENT SYSTOLIC BP < 140MM HG, G8755 MOST RECENT DIASTOLIC BP >= 90MM HG * Follow Up: 3 Months * Images: Billing Information: * Visit Code: 54777 Office Visit, Est Pt., Level 4. * Procedure Codes: G2211 Complex e/m visit add on. 1036F TOBACCO NON-USER. 3044F HG A1C LEVEL LT 7.0%. G8950 PREHTN/HTN BP DOC INDCD F/U DOC. G8752 MOST RECENT SYSTOLIC BP < 140MM HG. G8755 MOST RECENT DIASTOLIC BP >= 90MM HG. * Electronic signature of Yennifer Ventrua MD on 05/07/2025 at 10:04 AM EDT Sign off status: Pending * Provider: Yennifer Ventura M.D. Date: 0 04/03/2025 Generated for Printi ng/Fagleng/eTransmitting on: 0 05/07/2025 [...] Provider Not es 04/03/2025 Yennifer Ventura , geovanny
--- NOTE | 2025-05-07 09:53 | US_ITS ---
FINAL REPORT TECHNIQUE: Real-time grayscale and color ultrasound of the thyroid was performed. CLINICAL HISTORY: HYPERPARATHYROIDISM COMPARISON: None FINDINGS: The thyroid gland measures 46 x 14 x 11 mm on the right and 39 x 16 x 16 mm on the left. The isthmus measures 3 mm. The parenchyma is unremarkable . Nodules: There is a multitude of hypoechoic and complex nodules in both lobes of the thyroid. Dominant lower pole TR 4 nodule in the right measuring 7 mm. Dominant TR 4 nodule in the left lower pole measures 8 mm. Other smaller similar appearing nodules are seen throughout both lobes of the thyroid. IMPRESSION: Multiple TR 4 nodules measuring less than 1 cm. No follow-up required per TI-RADS criteria. Reviewed, Interpreted and Dictated by Kushal Messina MD Transcribed by Bella Cabrera Authenticated and [facility]
--- OUTSIDE RECORDS SUMMARY | 2025-05-07 10:04 | XMS_ITS | Encounter Summary ---
Author Organization Healthcare Address [address] [place] [address] Care Team Providers Care Shank Sorter Name Role Phone Osito Ventura MD Primary Care Provider [phone] Osito Ventura MD Unavailable [phone] Encounter Details Date Type Department Care [...] relatives? Three times a week 07/17/2023 Attends Faith Services Not on file 07/17 Active Member [...] Recorded Patient Health Questionnaire-2 Score 1 03/17/2025 [facility] - Occupational Stress Questionnaire Answer Date [...] a long term (including now)? No 07/17/2023 PHQ-9 Answer Date Recorded Patient Health Questionnaire-9 Score 10 03/17/2025 Utilities Answer Date Recorded In the past 12 months has [facility] [employer], gas, oil, or water [employer] threatened to shut off services in your [...] Description 07/01/2025 10:40 AM EDT Office Visit [facility] [place] [address] [facility], [address] [place] [address] Joni Trujillo MD [address] [place] [address] 09/16/2025 2:20 PM EST Office Visit [facility] [place] [address] , [address] [place] [address] Joni Trujillo MD [address] [place] [address] documented as of this encounter [...] documented as of this encounter Care Teams Shank Sorter Relationship Specialty Start Date End Date Osito Ventura MD [address] [place] [address] PCP - General 07/12/22 Osito Ventura MD [address] [place] [address] 07/12/22 documented as of this encounter
--- OUTSIDE RECORDS SUMMARY | 2025-05-07 10:04 | XMS_ITS | Patient Health Record ---
Author Organization [facility] Address [address] [facility] [address] [place] [id number] Care Team Providers Care Document Coordinator Name Role Phone Yennifer Ventura Primary Care Provider Marilyn Meneses Unavailable [phone] Allergies Allergen (clinical drug ingredient) Drug/Non Drug Allergy documented on EMR Reaction Allergy Type Onset Date Status levofloxacin levoFLOXacin tendon pain Drug Allergy Active Results Component Value Reference Range Notes Mammogram Reviewed date:04/15/2025 01:59:32 PM Interpretation:Negative Performing Lab: Notes/Report: Negative result negative Bone density Reviewed date:04/10/2025 12:20:58 PM Interpretation:osteopenia left hip Performing Lab: Notes/Report: osteopenia left hip Bone density osteopenia left hip P-Lipid Panel Reviewed date:11/14/2024 09:43:28 AM Interpretation:Normal Performing Lab: Notes/Report: Test performed by [place], [facility] [address] [place] [address] , [address], [place] [address] Wei Cline MD, Biblical Languages Professor CLIA: [id number] Cholesterol 136 <200 mg/dL Triglycerides 103 <150 [...] Results: 71 Units: mg/dL % Change: - P-Basic Metabolic Panel (BMP ) Reviewed date:11/18/2024 11:17:17 AM Interpretation:gluc 123 Performing Lab: Notes/Report: Test performed by [facility] [place] [address] Wei Cline MD, Biblical Languages Professor CLIA: [id number] Sodium 143 135-145 mmol/L Potassium 4.6 3.5-5.3 mmol/L Chloride 104 97-108 mmol/L CO2 26 22-32 mmol/L Glucose 123 65-99 mg/dL BUN 17 8-23 mg/dL Creatinine 0.86 0.50-1.00 mg/dL Calcium 10.3 8.6-10.4 mg/dL eGFR by Creatinine 72 >59 mL/min/1.73m2 P-Hemoglobin A1C Reviewed date:04/10/2025 12:18:49 PM Interpretation:5.9 Performing Lab: Notes/Report: Test performed by [facility] [place] [address], [place] [address] Wei Cline MD, Biblical Languages Professor CLIA: [id number] Hemoglobin A1C 5.9 <5.7 % The following HbA1c ranges recommended by the [place] Diabetes [employer] (ADA) may be used as an aid in the diagnosis of diabetes mellitus. HbA1c Suggested Diagnosis >=6.5% Diabetic 5.7% - 6.4% Pre-Diabetic <5.7% Non-Diabetic P-Comprehensive Metabolic Pa damián (CMP) Reviewed date:04/10/2025 12:18:49 PM Interpretation:gkuc 111, Ca 10.5, alk phos 139 Performing Lab: Notes/Report: Test performed by [facility] [address] [place] [address] , [place] [address] Wei Cline MD, Biblical Languages Professor CLIA: [id number] Sodium 141 135-145 mmol/L Potassium 4.1 3.5-5.3 [...] 0.4 <0.2-1.2 mg/dL A/G Ratio 1.6 1.1-2.5 Estimated Average Glucose Reviewed date:04/10/2025 12:18:49 PM Interpretation:123 Performing Lab: Notes/Report: Test performed by [facility] [address] [place] [address] , [address], [place] [address] Wei Cline MD, Biblical Languages Professor CLIA: [id number] Estimated Average Glucose (eAG) 123 Estimated Average Glucose (eAG) is calculated using the equation eAG = (28.7 x HbA1c) - 46.7 based on the guidelines established by the ADA. If the patient has certain diseases including kidney disease, sickle cell anemia, thalassemia, or is taking medications such as dapsone, erythropoietin, or iron, eAG should not be evaluated. EKG Reviewed date:04/10/2025 12:18:49 PM Interpretation:Abnormal, 04/03/2025 f/u appt Performing Lab: Notes/Report: Abnormal, 04/03/2025 f/u appt CBC Venipuncture (in house) Reviewed date:11/12/2024 09:28:16 [...] - 38 platlet 294 100 - 400 Glycohemoglobin A1c (in hous e) Reviewed date:11/12/2024 09:28:25 AM Interpretation: Performing Lab: Notes/Report: glycohemoglobin 6.3% 5 - 6.5 % P-Vitamin B12 Reviewed date:11/14/2024 09:43:28 AM Interpretation:229 Performing Lab: Notes/Report: Test performed by [facility] [address] [place] [address] , [address], [place] [address] Wei Cline MD, Biblical Languages Professor CLIA: [id number] Vitamin B12 550 245-2874 pg/mL P-Comprehensive Metabolic Pa damián (CMP) Reviewed date:11/14/2024 09:43:28 AM Interpretation:K+ 5.6, gluc 121, Ca 10.6, alk phos 171 Performing Lab: Notes/Report: Test performed by [facility] [address] [place] [address] , [address], [place] [address] Wei Cline MD, Biblical Languages Professor CLIA: [id number] Sodium 140 135-145 mmol/L Potassium 5.6 3.5-5.3 [...] 0.4 <0.2-1.2 mg/dL A/G Ratio 1.5 1.1-2.5 P-Microalbumin/Creatinine, R andom Urine Sample Reviewed date:11/14/2024 09:43:28 AM Interpretation:a/c 45 Performing Lab: Notes/Report: Test performed by [facility] , [address], [place] [address] Wei Cline MD, Biblical Languages Professor CLIA: [id number] Albumin/Creatinine Ratio, Urine 45 0-30 ug/mg Microalbumin, Urine, Random 3.2 Creatinine, Urine 70.7 P-Vitamin B12 Reviewed date:04/10/2025 12:20:58 PM Interpretation:1491 Performing Lab: Notes/Report: Test performed by [facility] , [place] [address] Wei Cline MD, Biblical Languages Professor CLIA: [id number] Vitamin B12 5455 510-6304 pg/mL P-Basic Metabolic Panel (BMP ) Reviewed date:04/10/2025 12:20:59 PM Interpretation:gluc 100, Ca 10.8 Performing Lab: Notes/Report: Test performed by [facility] [address] , [place] [address] Wei Cline MD, Biblical Languages Professor CLIA: [id number] Sodium 142 135-145 mmol/L Potassium 5.0 3.5-5.3 mmol/L Chloride 104 97-108 mmol/L CO2 28 20-32 mmol/L Glucose 100 65-99 mg/dL BUN 11 8-23 mg/dL Creatinine 0.77 0.50-1.00 mg/dL Calcium 10.8 8.6-10.4 mg/dL eGFR by Creatinine 82 >59 mL/min/1.73m2 P-Parathyroid Hormone (PTH) Intact Reviewed date:04/10/2025 12:20:59 PM Interpretation:107 Performing Lab: Notes/Report: Test performed by [facility] [address] , [place] [address] Wei Cline MD, Biblical Languages Professor CLIA: [id number] Parathyroid Hormone (PTH) Intact 107.0 15.0-65.0 pg/mL Reason For Referral Reason weakness Diagnosis 1 Generalized weakness (R53.1) [facility] Referring Provider First Name Yennifer Leal Referring Provider Last Name Lorenzo Referring Provider Speciality Family Pra ctice Referred Provider Specialty Physical The rapist General Notes Purvi Melvin 2024 01:08:54 PM > faxed to [facility] PT Referral Priority Routine Medications Medication SIG (Take, [...] MOUTH EVERY DAY; Duration: 30 days Active Losartan Potassium 100 MG 1/2 tablet at bedtime Orally once a day; Duration: 30 days Active Mounjaro 7.5 MG/0.5ML as directed Subcutaneous weekly 03/06/2025 Active Atorvastatin Calcium 40 mg 1 tablet Orally Once a day; Duration: 30 days Active Acetaminophen 325 MG [...] NEEDED MAY CAUSE DROWSINESS; Duration: 30 Not-Taking Doxazosin Mesylate 2 MG 1 tab(s) orally At Bed Time; Duration: 30 days Active Immunizations Vaccine Route Administration Date Status Comme [...] W/U Status Risk Notes Problem Essential hypertension (12097646) Essential (primary) hypertension (I10) Active confirmed Problem Hypertension (98553529) HTN (hypertension) (I10) Active confirmed Problem Vitamin B12 deficiency (617090060) Vitamin B12 deficiency (E53.8) Active confirmed Problem Hypercalcemia (57063901) Hypercalcemia (E83.52) Active confirmed Problem Essential hypertension (54705571) Essential hypertension (I10) Active confirmed Problem Cardiac dysrhythmia (301795629) Cardiac dysrhythmia (I49.9) Active confirmed Problem Anxiety (13755403) Anxiety (F41.9) Active confi rmed Problem Sciatic nerve lesion (799872114) Piriformis syndrome of right side (G57.01) Active confirmed Problem Body mass index 40+ - severely obese (868928472) BMI 50.0-59.9, adult (Z68.43) Active confirmed Problem Paroxysmal atrial fibrillation (568812059) Paroxysmal atrial fibrillation (I48.0) Active confirmed Problem Lymphedema (39102988) Lymphedema (I89.0) Active confirmed Problem Bandemia (773068262) Bandemia (D72.825) Active confirmed Problem Type 2 diabetes mellitus with other specified complication (E11.69) Active confirmed Problem Pure hypercholesterolemia (963428741) Pure hypercholesterolemia (E78.0) Active confirmed Problem Acute cystitis (51824581) Acute cystitis with hematuria (N30.01) Active confirmed Problem Chronic obstructive pulmonary disease (33255717) Asthmatic bronchitis , chronic (J44.9) Active confirmed Problem Atrial fibrillation (20590144) Atrial fibrillation, unspecified type (I48.91) Active confirmed Problem Dyslipidemia (490154953) Dyslipidemia (E78.5) Active confirmed Problem Hyperparathyroidism (13526226) Hyperparathyroidism (E21.3) Active confirmed Problem Type II diabetes mellitus without complication (639847858) Type 2 diabetes mellitus without complication, without long-term current use of insulin (E11.9) Active confirmed Problem Morbid obesity (770332983) Obesity, morbid, BMI 50 or higher (E66.01) Active confirmed Problem Stasis dermatitis (disorder) (11670442) Stasis dermatitis of both legs (I87.2) Active confirmed Problem Prolapse of uterus (37931352) Prolapse of uterus (N81.4) Active confirmed Problem Fibrocystic breast changes (72183391) Fibrocystic breast disease (FCBD), unspecified laterality (N60.19) Active confirmed Problem Seasonal allergic rhinitis (295353639) Seasonal allergic rhinitis, unspecified trigger (J30.2) Active confirmed Problem Osteopenia following menopause (disorder) (514591521) Osteopenia after menopause (M81.0) Active confirmed Problem Persistent atrial fibrillation (568053262) Persistent atrial fibrillation (I48.19) Active confirmed Problem Degeneration of lumbar intervertebral disc (24604306) Disc degeneration, lumbar (M51.36) Active confirmed Vital Signs Heart Rate 84 /min 04/03/2025 Blood pressure diastolic 90 mm Hg 04/03/2025 Height 64.75 in 04/03/2025 Blood pressure systolic 118 mm Hg 04/03/2025 Weight 315.2 lbs 04/03/2025 BMI 52.85 kg/m2 04/03/2025 Encounters Encounter Location Date Provider Diagnosis [facility] [address] [place] [id number] 11/11/2024 Yennifer Ventura Essential hypertensi on I10 ; Obesity, morbid, BMI 50 or higher E66.01 ; Type 2 diabetes mellitus without complication, without long-term current use of insulin E11.9 ; Vitamin B12 deficiency E53.8 and Dyslipidemia E78.5 [facility] [address] [facility] [address] [place], [place] [id number] 11/15/2024 Yennifer Ventura Vitamin B12 deficien cy E53.8 and HTN (hypertension) I10 [facility] [address] [facility] [address] [place], [place] [id number] 12/02/2024 Yennifer Ventura Cardiac dysrhythmia I49.9 and BMI 50.0-59.9, adult Z68.43 [facility] [address] [place], [place] [id number] 03/06/2025 Yennifer Ventura Persistent atrial fibrillation I48.19 ; BMI 50.0-59.9, adult Z68.43 ; Essential (primary) hypertension I10 ; Asthmatic bronchitis , chronic J44.9 and Type 2 diabetes mellitus with other specified complication E11.69 [facility] [address] [place], [place] [id number] 04/03/2025 Yennifer Ventura Essential hypertensi on I10 ; Persistent atrial fibrillation I48.19 ; Obesity, morbid, BMI 50 or higher E66.01 ; Type 2 diabetes mellitus without complication, without long-term current use of insulin E11.9 ; Vitamin B12 deficiency E53.8 ; Generalized weakness R53.1 and Hypercalcemia E83.52 [facility] [address] [facility] [address] [place], [place] [id number] 11/06/2024 Yennifer Ventura [facility] [address] [facility] [address] [place], [place] [id number] 11/14/2024 Yennifer Ventura [facility] [address] [facility] [address] [place], [place] [id number] 11/18/2024 Yennifer Ventura [facility] [address] [facility] [address] [place], [place] [id number] 01/10/2025 Marilyn Meneses Type 2 diabetes mellitus without complication, without long-term current use of insulin E11.9 [facility] [address] [facility] [address] [place], [place] [id number] 02/05/2025 Yennifer Ventura [facility] [address] [facility] [address] [place], [place] [id number] 03/12/2025 Yennifer Ventura Screening for colon cancer Z12.11 ; Screening for breast cancer Z12.39 and Screening for osteoporosis Z13.820 [facility] [address] [facility] [address] [facility] [address] [place] [id number] 04/10/2025 Yennifer Ventura [facility] [address] [facility] 36 [facility] [address] [place] [id number] 04/21/2025 Yennifer Ventura Assessments Encounter Date Diagnosis (ICD Code) Assessment Notes Treatment Notes Treatment Clinical Notes Section Notes 11/11/2024 Essential hypertension (ICD-10 - I10) 11/11/2024 Obesity, morbid, BMI 50 or higher (ICD-10 - E66.01) 11/15/2024 Vitamin B12 deficiency (ICD-10 - E53.8) 12/02/2024 Cardiac dysrhythmia (ICD-10 - I49.9) 12/02/2024 BMI 50.0-59.9, adult (ICD-10 - Z68.43) 01/10/2025 Type 2 diabetes mellitus without complication, [...] BMI 50 or higher (ICD-10 - E66.01) 03/12/2025 Screening for osteoporosis (ICD-10 - Z13.820) 11/11/2024 Type 2 diabetes mellitus without complication, without long-term current use of insulin (ICD-10 - E11.9) 03/06/2025 Essential (primary) hypertension (ICD-10 - I10) 11/15/2024 HTN (hypertension) (ICD-10 - I10) 11/11/2024 Vitamin B12 deficiency (ICD-10 - E53.8) 03/06/2025 Asthmatic bronchitis , chronic (ICD-10 - J44.9) 04/03/2025 Type 2 diabetes mellitus without complication, without long-term current use of insulin (ICD-10 - E11.9) 04/03/2025 Vitamin B12 deficiency (ICD-10 - E53.8) 03/06/2025 Type 2 diabetes mellitus with other specified complication (ICD-10 - E11.69) 11/11/2024 Dyslipidemia (ICD-10 - E78.5) 04/03/2025 Generalized weakness (ICD-10 - R53.1) 04/03/2025 Hypercalcemia (ICD-10 - E83.52) Plan Of Treatment Pending Test Test Name Order Date ultrasound : thyroid 05/05/2025 Next Appt Details Provider Name:Yennifer Leal Diana er, 07/21/2025 02:15:00 PM, [address], [address], [place], [place], [id number], Insurance Providers Payer Name Payer Address Payer Phone Subscriber Number Group Number Insured Name Patient Relationship to Insured Coverage Start Date Coverage End Date MEDICARE PART B [address] [address] [place] [address] [id number] BALDO HAGEN Self - patient is the insured [facility] [address] [place] [address] [id number] BALDO HAGEN Self - patient is the insured Medications Administered Medication Instructions Date of Administration Dosage Notes B-12 11/15/2024 1 mL Depo- Medrol 40 mg/ml 05/21/2014 1 mL Depo- Medrol 40 mg/ml 03/29/2023 1.5 mL Medical (General) History Medical History History ICD Code hypertension hyperlipidemia asthma, weight induced [place] palsy atrial fibrillation COVID vaccine Nov 2020, Surgical History Surgery Date(Month/Year) Hospitalization History Reason Date(Month/Year)
--- OUTSIDE RECORDS SUMMARY | 2025-05-07 10:04 | XMS_ITS | Clinical Summary ---
[facility] Address [address] [place] [address] Care Team Providers Care Retail Planning Manager Name Role Phone Unavailable Primary Care Provider [...]
--- OUTSIDE RECORDS SUMMARY | 2025-05-07 10:04 | XMS_ITS | Encounter Summary ---
Author Organization Healthcare Address [address] [place] [address] Care Team Providers Care Sales Office Assistant Name Role Phone Osito Ventura MD Primary Care Provider Osito Ventura MD Unavailable [phone] Reason for Visit * Reason Comments Med Refill Encounter Details Date Type Department Care Team ([facility] st Contact Info) Description 03/01/2025 Refill [facility] [address], [address] [place] [address] Joni Trujillo MD [address] [place] [address] Atrial fibrillation, unspecified type (CMS/HCC) [...] relatives? Three times a week 07/17/2023 Attends Hinduism Services Not on file 07/17 Active Member [...] and heating? Not hard at all 07/17/2023 [facility] [place] [facility] Occupat ional Health - Occupational Stress [...] place to sleep or slept in a skilled nursing (including now)? No 07/17/2023 Utilities Answer Date [...] Description 07/01/2025 10:40 AM EDT Office Visit [facility] [place] [address] , [address] [place] [address] Joni Trujillo MD [address] [place] [address] 09/16/2025 2:20 PM EST Office Visit [facility] [place] [address], [address] [place] [address] Joni Trujillo MD [address] [place] [address] documented as of this encounter Visit Diagnoses Diagnosis Atrial fibrillation, unspecified type (CMS/HCC) documented in this encounter Additional Health Concerns Infection Onset Date Last Indicated Resolved Time 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
--- OUTSIDE RECORDS SUMMARY | 2025-05-07 10:04 | XMS_ITS | Clinical Summary ---
Author Organization [facility] Address [address] [place] [address] Care Team Providers Care Wood Barrel Reconditioner Name Role Phone Osito Ventura MD Primary Care Provider [phone] Osito Ventura MD Unavailable [phone] Allergies No known active allergies Medications [...] Description 03/17/2025 11:00 AM EDT Office Visit [facility] [place] [address] [facility], [address] [place] [address] Yaz Leone APRN Persistent atrial fibrillation (CMS/HCC) (Primary Dx); Morbid obesity (CMS/HCC); Essential hypertension; Hyperlipidemia, unspecified hyperlipidemia type; Diabetes mellitus type II, non insulin dependent (CMS/HCC); LYLE (obstructive sleep apnea); On continuous oral anticoagulation 03/17/2025 Travel 03/12/2025 Telephone [facility] [address], [address] [place] [address] Joni Trujillo MD HCN - Patient Message 03/01/2025 Refill [facility] [address], [address] [place] [address] Joni Trujillo MD Atrial fibrillation, unspecified type ([facility]/HCC) 02/28/2025 Refill [facility] [address], [address] [place] [address] Joni Trujillo MD Atrial fibrillation, unspecified type ([facility]/HCC) 02/21/2025 Refill [facility] [address], [address] [place] [address] Joni Trujillo MD Atrial fibrillation, unspecified type ([facility]) from Last 3 Months Immunizations Immunization Administration [...] relatives? Three times a week 07/17/2023 Attends Sabianism Services Not on file 07/17 Active Member [...] Recorded Patient Health Questionnaire-2 Score 1 03/17/2025 [facility] Occupat ional Health - Occupational Stress [...] place to sleep or slept in a jail (including now)? No 07/17/2023 PHQ-9 Answer Date [...] Description 07/01/2025 10:40 AM EDT Office Visit [facility] [address] [facility], [address] [place] [address] Joni Trujillo MD [address] [place] [address] 09/16/2025 2:20 PM EST [facility] [address], [address] [place] [address] Joni Trujillo MD [address] [place] [address] Health Maintenance Due Date Last Done Comments [facility]-Bone Density Scan 1955 [facility]-Hepatitis C Screening 1955 [facility]-Medicare Annual Wellness (AWV) 1955 [facility]-/Child/Adol SDOH Screenings 1955 Diabetes: Dental Exam 1963 [...] 12/31/2018, 12/21/2017 [facility]-Diabetes: Hemoglobin A1C 01/09/2024 07/12/2023 [id number] Vaccine ( - season) 2024 09/30/2021, 12/16/2020, [...] Adults <6.0% Children and Adolescents <7.5% Source: [place] [employer]. Standards of medical care in diabetes,2017. Diabetes Care.2017:40 (suppl 1):S1-S135. HbA1c assay performed by an ion-exchange chromatography method that is certified traceable to the [facility] us Savi Mcghee Aye ROLL MACHINE OPERATOR LAB BLOOD ORDERABLES Kelley chino [facility] [address] [place] [address] from Last 3 Months or Most Recently Relevant to Health Maintenance Additional Health Concerns Infection Onset Date Last Indicated MRSA 07/12/2023 07/12/2023 [place] [address] [facility] Advance Directives * Full Code (Latest Code Status on File) Date Activated Date Inactivated Comments 07/16/2023 4:54 PM 07/25/2023 5:43 PM Question Answer Comments Patient has decision-making capacity? Yes Healthcare Agents on File Name Relationship Healthcare Agent Relationshi p Communication Mata Farias Spouse Next of Kin Care Teams Wood Barrel Reconditioner Relationship Specialty Start Date End Date Osito Ventura MD [address] [place] [address] PCP - General 07/12/22 Osito Ventura MD [address] [place] [address] 07/12/22
--- OUTSIDE RECORDS SUMMARY | 2025-05-07 10:04 | XMS_ITS | Encounter Summary ---
Author Organization [facility] [place] Address [address] [place] [address] Care Team Providers Care Respite Worker Name Role Phone Osito Ventura MD Primary Care Provider [phone] Osito Ventura MD Unavailable [phone] Reason for Visit * Reason Onset Date Comments HCN - Patient Message 03/12/2025 Encounter Details Date Type Department Care Team (Late st Contact Info) Description 03/12/2025 Telephone [facility] [place] [address], [address] [place] [address] Joni Trujillo MD [address] [place] [address] HCN - Patient Message Social [...] relatives? Three times a week 07/17/2023 Attends [employer] Not on file 07/17 Active Member [...] 03/17/2025 [facility] - Occupational Stress Questionnaire Answer Date [...] place to sleep or slept in a [place] health care facility (including now)? No 07/17/2023 PHQ-9 Answer Date Recorded Patient Health Questionnaire-9 Score 10 03/17/2025 Utilities Answer Date Recorded In the past 12 months has th e RECOMBINETICS, gas, oil, or water Common Interest Communities threatened to shut off services in your [...] Boogie RN documented as of this encounter Miscellaneous Notes * Telephone Encounter - Abril Alberto - 03/12/2025 3:58 PM EDT Patient Phone Message Reason for Call: Pt is asking if she may be seen sooner. Best contact number and optimal time of day to reach caller: [phone] Note: Please do not reply to this message. Follow-up communication and further actions as a result of this message need to be communicated with the patient directly, if the patient is not active onMyChart. If the patient is active on MyChart, they will receive notification of the communication/outcome via [employer]. documented in this encounter Plan of Treatment Upcoming Encounters Date Type Department Care Team (Late st Contact Info) Description 07/01/2025 10:40 AM EDT Office Visit [facility] [address], [address] [place] [address] Joni Trujillo MD [address] [place] [address] 09/16/2025 2:20 PM EST Office Visit [facility] [address], [address] [place] [address] Joni Trujillo MD [address] [place] [address] documented as of this encounter Visit Diagnoses Not on filedocumented in this encounter Additional Health Concerns Infection Onset Date Last Indicated Resolved Time 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
--- OUTSIDE RECORDS SUMMARY | 2025-05-07 10:04 | XMS_ITS | Encounter Summary ---
Author Organization Healthcare Address [address] [place] [address] Care Team Providers Care Chalk Molding Machine Operator Name Role Phone Osito Ventura MD Primary Care Provider [phone] Osito Ventura MD Unavailable [phone] Reason for Visit * Reason Comments Med Refill Encounter Details Date Type Department Care Team ([facility] st Contact Info) Description 02/28/2025 Refill [facility] [place] [address], [address] [place] [address] Joni Trujillo MD [address] [place] [address] Atrial fibrillation, unspecified type (CMS/HCC) [...] relatives? Three times a week 07/17/2023 Attends [employer] Not on file 07/17 Active Member [...] and heating? Not hard at all 07/17/2023 [facility] [place] [facility] - Occupational Stress [...] place to sleep or slept in a retirement (including now)? No 07/17/2023 Utilities Answer Date [...] Description 07/01/2025 10:40 AM EDT Office Visit [facility] [place] [address] , [address] [place] [address] Joni Trujillo MD [address] [place] [address] 09/16/2025 2:20 PM EST Office Visit [facility] [place] [address], [address] [place] [address] Joni Trujillo MD [address] [place] [address] documented as of this encounter Visit Diagnoses Diagnosis Atrial fibrillation, unspecified type (CMS/HCC) documented in this encounter Additional Health Concerns Infection Onset Date Last Indicated Resolved Time 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
--- OUTSIDE RECORDS SUMMARY | 2025-05-07 10:04 | XMS_ITS | Encounter Summary ---
Author Organization Healthcare Address [address] [place] [address] Care Team Providers Care Lawnmower Repair Mechanic Name Role Phone Osito Ventura MD Primary Care Provider Osito Ventura MD Unavailable [phone] Reason for Visit * Reason Comments Med Refill Encounter Details Date Type Department Care Team ([facility] st Contact Info) Description 02/21/2025 Refill [facility] [place] [address], [address] [place] [address] Joni Trujillo MD [address] [place] [address] Atrial fibrillation, unspecified type (CMS/HCC) [...] relatives? Three times a week 07/17/2023 Attends [employer] Services Not on file 07/17 Active Member [...] and heating? Not hard at all 07/17/2023 [facility] [place] [facility] - Occupational Stress [...] place to sleep or slept in a care home (including now)? No 07/17/2023 Utilities Answer Date [...] Description 07/01/2025 10:40 AM EDT Office Visit [facility] [place] [address] , [address] [place] [address] Joni Trujillo MD [address] [place] [address] 09/16/2025 2:20 PM EST Office Visit [facility] [place] [address], [address] [place] [address] Joni Trujillo MD [address] [place] [address] documented as of this encounter Visit Diagnoses Diagnosis Atrial fibrillation, unspecified type (CMS/HCC) documented in this encounter Additional Health Concerns Infection Onset Date Last Indicated Resolved Time 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
== END 2025-05-07 23:59 | disposition home or self-care (01) ==
LOC: RAD 09:50
PROVIDERS: PCP Family Medicine; Visit Provider Family Medicine
DX: E04.2 Nontoxic multinodular goiter (principal); E21.3 Hyperparathyroidism, unspecified
CPT/HCPCS: 76536

== ENCOUNTER 2025-06-10 17:00 | Outpatient (RCR) | payer MEDICARE, BC, SELFPAY ==
--- NOTE | 2025-05-21 13:53 | HMH.PTOPEV ---
PT Outpatient Evaluation Rehab PT Outpatient Evaluation Start: 05/21/25 12:54 Freq: Status: Active Protocol: Document 05/21/25 12:54 AROLDO (Rec: 05/21/25 13:53 AROLDO [id number]) E-signed By Samir Arellano, PT Outpatient Therapy Subjective History Subjective History Pt is a 69 yof who is referred to [facility] outpatient PT with a referring diagnosis of generalized weakness. Pt reports that she has recently noticed that she wears down very quickly and that she does not have much energy. Pt reports that she often feels tired and gets short of breath. Pt reports that she had RSV two years ago and she feels like she has never fully recovered from that. Pt presents this date with a SP cane, but reports that she does not use it all of the time. Pt reports that she has difficulty getting out of lower seats. Pt reports that she has not had any falls, recently, but she is often afraid of falling has had a history of falling in the past. Pt reports that she has a ramp to enter the home. Reports a lot of difficulty with stairs. Reports that she is only able to do it when she has something to pull herself up. Reports that she avoids stairs if possible. Pt reports that she lives alone. Pt reports that she is only able to prepare very short meals, and one of her goals would be to get back to being able to help prepare larger meals . PMH: hx of RSV, HTN, HLD, [place], Afib, morbid obesity New diagnosis of No cancer in past 12 months? Chief Complaint Weakness Current Functional Lifting,Housework,Standing,Squatting,Walking Limitations Level of pain today 0 (0-10) Pain scale - at its 0 best (0-10) Pain scale - at its 0 worst (0-10) Dynamic Gait Index Test Protocol Gait Level Surface Mild Impairment Query Text: Instructions: Walk at your normal speed from here to the next pedro (20'). Grading: Pedro the lowest category that applies. Change in Gait Speed Moderate Impairment Query Text: Instructions: Begin walking at your normal pace (for 5') , when I tell you go , walk as fast as you can (for 5'). When I tell you slow , walk as slowly as you can ( for 5'). Grading: Pedro the lowest category that applies. Gait with Horizontal Mild Impairment Head Turns Query Text: Instructions: Begin walking at your normal pace. When I tell you to look right , keep walking straight, but turn you head to the right. Keep looking to the right unit I tell you look left , then keep walking straight and turn your head to the left. Keep your head to the left until I tell you look straight , then keep walking straight, but return you head to the center. Grading: Pedro the lowest category that applies. Gait with Vertical Moderate Impairment Head Turns Query Text: Instructions: Begin walking at your normal pace. When I tell you to look up , keep walking staight, but tip your head up. Keep looking up until I tell you to look down , then keep walking straight and tip your head down. Keep your head down until I tell you look straight , then keep walking straight, but return your head to the center. Grading: Pedro the lowest category that applies. Gait and Pivot Turn Moderate Impairment Query Text: Instructions: Begin walking at your normal pace. When I tell you turn and stop , turn as quickly as you can to face the opposite direction and stop. Grading: Pedro the lowest category that applies. Step Over Obstacle Moderate Impairment Query Text: Instructions: Begin walking at your normal speed. When you come to the shoebox, step over it, not around it and keep walking. Grading: Pedro the lowest category that applies. Step Around Mild Impairment Obstacles Query Text: Instructions: Begin walking at normal speed. When you come to the first cone (about 6' away) , walk around the right side of it. When you come to the second cone (6' past first cone), walk around it to the left. Grading: Pedro the lowest category that applies. Steps Severe Impairment Query Text: Instructions: Walk up these stairs as you would at home. At the top, turn around and walk down . Grading: Pedro the lowest category that applies. Scoring Dynamic Gait Index 10 Score Miscellaneous Dx PT Eval Objective Objective MMT: - Hip Flexion: 3/5 R, 2/5 L - Hip abd: 2+/5 R, 2/5 L - Hip add: 3/5 R. 2+/5 L - Knee Ext/Flex: 3/5 b/l 30s STS: 7 repetitions with UE support TUs without SP Cane DGI: 10 Outpatient Therapy Assessment Impairments Problems/ Impaired Strength,Impaired Walking,Impaired Standing, Impairmments Impaired Household Care,Impaired Stair Climbing, Impaired Squatting,Impaired Balance,Subjective C/O Pain PT Patient Goals PT Patient Goals PT Short Term In 4 weeks: Patient Goals 1. Pt will improve bilateral hip and knee strength to at least 3/5 grossly upon MMT to better facilitate functional movement patterns, such as standing from a chair. 2. Pt will improve 30s STS score to 9 repetitions to decrease fall risk, demonstrate improved endurance and to better align with age appropriate norms. 3. Pt will improve TUG time to 16s to demonstrate improved functional mobility and decreased fall risk. 4. Pt will improve DGI score to 13 to demonstrate a decreased fall risk and improved in-home and community mobility. 5. Pt will be able to stand for 15 minutes in order to prepare a small meal in her kitchen without requiring a rest break. 6. Pt will report HEP adherence by completing her prescribed HEP 4-5x/week. PT Nursing Home Patient In 8 weeks: Goals 1. Pt will improve bilateral hip and knee strength to at least 4/5 grossly upon MMT to better facilitate functional movement patterns, such as standing from a chair. 2. Pt will improve 30s STS score to 11 repetitions to decrease fall risk, demonstrate improved endurance and to better align with age appropriate norms. 3. Pt will improve TUG time to 13s to demonstrate improved functional mobility and decreased fall risk. 4. Pt will improve DGI score to 16 to demonstrate a decreased fall risk and improved in-home and community mobility. 5. Pt will be able to stand for 30 minutes in order to prepare a larger meal in her kitchen without requiring a rest break. 6. Pt will be able to navigate a flight of stairs with a hand-rail, in order to demonstrate improved community mobility. Outpatient Therapy Plan of Care Treatment Plan May Include Therapeutic Exercise Yes Including Home Exercise Program Manual Therapy Yes Techniques Neuromuscular Re- Yes education Therapeutic Yes Activities to Return to Previous Functional/Work Level Gait Training Yes ADL/Self Care Yes Education Thermal Modalities Yes Electrical Yes Stimulation Manual Lymphatic Yes Drainage Eval/Re-Eval Yes Aquatic Therapy Yes Frequency Times per week 2 Duration Number of Weeks 8 Addendums This patient is a No candidate for social or vocational rehab ? Patient/Guardian Yes verbally acknowledges understanding of treatment program and consents to further treatment? Patient/Guardian Yes verbally acknowledges understanding of diagnosis, prognosis and goals for treatment? Eval Complexity PT Charges 99161 - High Complexity Shoulder/Elbow Eval Shoulder Objective Measurements Elbow Objective Measurements PHYSICIAN CERTIFICATION: I certify the specified therapy services for Paty Farias are required, authorized, and reviewed every 30 days.
== END 2025-06-10 23:59 | disposition home or self-care (01) ==
LOC: PT 17:00
PROVIDERS: PCP Family Medicine; Visit Provider Family Medicine
DX: R53.1 Weakness (principal)
CPT/HCPCS: 97163; 97530

== ENCOUNTER 2025-06-26 17:00 | Outpatient (RCR) | payer MEDICARE, SELFPAY | END 2025-07-03 23:59 | disposition home or self-care (01) | LOC: PT 17:00 | PROVIDERS: PCP Family Medicine; Visit Provider Family Medicine | DX: R53.1 Weakness (principal) | CPT/HCPCS: 97110; 97530 ==